=== PATIENT | male | born 1985 | race African-American/Black ===

== ENCOUNTER → 2016-11-02 | Outpatient (CLI) | payer MEDICARE, OTHER ==
[~2016-11-02] MED LIST: ADDE30TA PO; CLIN150 PO; FISH1000 PO; GLUCKIT15; GLUCTES12; INSU1MIS15; LANCETS1 MI1; LEVEMIR SQ; LISI10TA3 PO; METF1000 PO; METF500 PO; METF500T4 PO; MILK140C PO; OMEG1000 PO; SERO50TA PO; [UNRECOGNIZED DRUG - CODE] PO
[2016-11-02 10:22] LABS: ALKALINE PHOSPHATASE 187 U/L (45-117); ALT (GPT) 37 U/L (12-78); ANION GAP 10 MEQ/L (5-15); AST (GOT) 22 U/L (15-37); BICARBONATE 28.1 MEQ/L (21.0-32.0); BLOOD UREA NITROGEN 10 MG/DL (7-18); CHLORIDE 98 MEQ/L (98-107); GLOMERULAR FILTRATION RATE 81 ML/MIN (>89); GLUCOSE,FASTING 340 MG/DL (74-99); HDL CHOLESTEROL 57.4 MG/DL (40.0-60.0); LDL CHOLESTEROL 38 MG/DL (0-99); POTASSIUM 3.4 MEQ/L (3.5-5.1); SODIUM (NA) 136 MEQ/L (136-145); TOTAL BILIRUBIN ADULT 1.3 MG/DL (0.2-1.0)
[2016-11-02 10:28] LABS: MICRO ALBUMIN RANDOM URINE RAW 38.6 MG/L (0.0-30.0)
[2016-11-02 16:04] LABS: HEMOGLOBIN A1a 1.1 %; HEMOGLOBIN A1b 2.7 %; HEMOGLOBIN Ao 76.3 %; HEMOGLOBIN LA1C 3.8 %; HEMOGLOBIN P3 6.6 %
== END ==
LOC: CLAB 09:27
PROVIDERS: ATTEND Family Medicine
DX: E11.9 Type 2 diabetes mellitus without complications (principal)
CPT/HCPCS: 36415; 80053; 80061; 82043; 83036

== ENCOUNTER 2016-11-08 14:19 | Inpatient (IN) | payer MEDICARE, OTHER ==
[~2016-11-08] VITALS: Ht 188 cm; Wt 112.2 kg
[2016-11-08] VITALS (7 sets, daily range): BP systolic 124–135; BP diastolic 68–93; PULSE 81–129; RESP 15–20; TEMP 96.9–99; O2SAT 97–100
[~2016-11-08 14:19] MED LIST changes: -CLIN150 PO; -GLUCKIT15; -GLUCTES12; -INSU1MIS15; -LANCETS1 MI1; -LEVEMIR SQ; -METF1000 PO; -METF500 PO; -OMEG1000 PO
[2016-11-08] MEDS ORDERED: MILK140C PO (14:37)
[2016-11-08] MEDS ORDERED: OMEG1000 PO (14:37)
[2016-11-08 15:07] LABS: AUTOMATED NEUTROPHIL # 10.2 TH/MM3 (1.8-7.7); BASOPHIL # 0.2 TH/MM3 (0-0.2); BASOPHIL % 1.3 % (0.0-2.0); EOSINOPHIL % 0.3 % (0.0-4.0); HEMATOCRIT 48.8 % (39.0-51.0); HEMO FLAGS DIFF FINAL; LYMPH % 18.7 % (9.0-44.0); LYMPHOCYTE # 2.6 TH/MM3 (1.0-4.8); MEAN CORPUSCULAR HEMOGLOBIN 27.2 PG (27.0-34.0); MEAN CORPUSCULAR HGB CONC 33.6 % (32.0-36.0); MONO % 6.7 % (0.0-8.0); PLATELET COUNT 232 TH/MM3 (150-450); RED BLOOD COUNT 6.03 MIL/MM3 (4.50-5.90); RED CELL DISTRIBUTION WIDTH 12.5 % (11.6-17.2); WHITE BLOOD COUNT 13.9 TH/MM3 (4.0-11.0)
--- NOTE | 2016-11-08 15:12 | PD ---
HPI Chief Complaint: Bleeding Time Seen by Provider: 15:10 Travel History International Travel<30 days: No Contact w/Intl Traveler<30days: No Traveled to known affect area: No History of Present Illness HPI 31-year-old male that presents to the ED for evaluation of bleeding. 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 Per caregiver and patient symptoms started yesterday. Patient was bleeding on the, as well as another wound on his left lower leg. Patient did not mention any of this to the caregivers until today when they noticed that he had blood on his gum and then he mentioned that he had bleeding from the left leg. Patient has a history of diabetes and history of hep C as well as schizophrenia mental disability. Patient is chronically on disability. Patient lives at a facility with 2 other residents. Patient voices no other complaints. Patient does state that home on the left leg is slightly tender to touch and the pain is 5 out of 10. He denies any prior injury. Unclear as to how long lump has been there since caregiver only noticed it today but he does appear to have been there for longer. Patient denies any chest pain or shortness of breath. He does complain to caregiver as well as me of some weakness otherwise feels well. He states been compliant with the medications given to him by his veneer cutter as well as his primary care doctor. She states that he continues to take his other medications. He states that he has no pain other than on the lump. He denies any blood in the stool or urinary bleeding. Per caregiver he has been pain more than usual. Patient follows with the resident's of the family practice here in [place]. [facility] Past Medical History ADD: Yes ADHD: Yes Arthritis: No Asthma: No Autoimmune Disease: No Blood Disorders: Yes (HEMOFILIAC FACTER V) Anxiety: No Depression: Yes Heart Rhythm Problems: No Cancer: No Cardiovascular Problems: No High Cholesterol: Yes Chemotherapy: No Chest Pain: No Congestive Heart Failure: No COPD: No Cerebrovascular Accident: No Diabetes: Yes Patient Takes Glucophage: Yes Diminished Hearing: Yes Endocrine: No Gastrointestinal Disorders: Yes GERD: No Glaucoma: No Genitourinary: No Headaches: No Hepatitis: Yes (HEP C) Hiatal Hernia: No Hypertension: No Immune Disorder: No Kidney Stones: No Medical other: Yes Musculoskeletal: No Neurologic: No Psychiatric: No Reproductive: No Respiratory: No Immunizations Current: No Migraines: No Myocardial Infarction: No Radiation Therapy: No Renal Failure: No Seizures: No Sickle Cell Disease: No Sleep Apnea: No Thyroid Disease: No Ulcer: No Tetanus Vaccination: < 5 Years Influenza Vaccination: Yes PNEUMOCCOCAL Vaccine (Year): 3 Past Surgical History Abdominal Surgery: No AICD: No Appendectomy: No Arteriovenous Shunt: No Cardiac Surgery: No Cholecystectomy: No Ear Surgery: Yes (BILAT) Endocrine Surgery: No Eye Surgery: No Genitourinary Surgery: No Gynecologic Surgery: No Insulin Pump: No Joint Replacement: No Oral Surgery: No Pacemaker: No Thoracic Surgery: No Other Surgery: Yes (KELLOID REMOVAL BOTH EAR 10 YEARS AGO) Social History Alcohol Use: Yes (occassionally ) Tobacco Use: Yes (< 1/2 PPD ) Substance Use: No Allergies-Medications (Allergen,Severity, Reaction): Coded Allergies: No Known Allergies (Verified , 11/08/16) Reported Meds & Prescriptions Reported Meds & Active Scripts Active Adderall (Amphetamine-Dextroamphetamine) 30 Mg Tab 30 Mg PO DAILY Avoid late evening doses. Space doses at least 4 to 6 hours if more than once/day dosing. Metformin ER (Metformin HCl) 500 Mg Arben 500 Mg PO BID With evening meal Lisinopril 10 Mg Tab 10 Mg PO DAILY Seroquel (Quetiapine Fumarate) 50 Mg Tab 50 Mg PO DAILY Reported Milk Thistle 140 Mg Cap 140 Mg PO BID Austin-3 1000 mg (Austin-3 Fatty Acids) 1 Cap Cap 1,000 Caplet PO DAILY Review of Systems Except as stated in HPI: all other systems reviewed are Neg Physical Exam Narrative GENERAL: SKIN: Warm and dry. HEAD: Atraumatic. Normocephalic. EYES: Pupils equal and round. No scleral icterus. No injection or drainage. ENT: No nasal bleeding or discharge. Mucous membranes pink and moist. Tongue is midline. No uvula deviation. Patient does have some bleeding on the gums noted. No mass or deformity noted otherwise. NECK: Trachea midline. No JVD. CARDIOVASCULAR: Regular rate and rhythm. No murmurs, S3, S4. RESPIRATORY: No accessory muscle use. Clear to auscultation. Breath sounds equal bilaterally. GASTROINTESTINAL: Abdomen soft, non-tender, nondistended. Hepatic and splenic margins not palpable. MUSCULOSKELETAL: Extremities without clubbing, cyanosis, or edema. No obvious deformities. Full range of motion of the upper and lower extremities bilaterally. Patient does have a area of induration's on the left upper leg about 4 cm in diameter. No obvious pus but some blood is expressed from the wound. Appears to have a necrotic center and is tender to touch. No sign of lymphadenopathy. No pulsatile mass noted. Patient does have 2+ pulses in the lower and upper extremities bilaterally. NEUROLOGICAL: Awake and alert. No obvious cranial nerve deficits. Motor grossly within normal limits. Five out of 5 muscle strength in the arms and legs. Normal speech. PSYCHIATRIC: Appropriate mood and affect; insight and judgment normal. Data Data Last Documented VS Vital Signs Date Time Temp Pulse Resp B/P Pulse Ox O2 Delivery O2 Flow Rate FiO2 11/08/16 14:55 18 98 Room Air 11/08/16 14:32 11/08/16 14:22 99.0 129 Orders Electrocardiogram (11/08/16 14:40) Complete Blood Count With Diff (11/08/16 14:40) Comprehensive Metabolic Panel (11/08/16 14:40) Prothrombin Time / Inr (Pt) (11/08/16 14:40) Act Partial Throm Time (Ptt) (11/08/16 14:40) Urinalysis - C+S If Indicated (11/08/16 14:40) Magnesium (Mg) (11/08/16 14:40) Iv Access Insert/Monitor (11/08/16 14:40) Ecg Monitoring (11/08/16 14:40) Oximetry (11/08/16 14:40) Type And Screen (11/08/16 14:40) Fresh Frozen Plasma (Ffp) (11/08/16 14:43) Us Leg Soft Tissue (11/08/16 ) Consult Hematology (11/08/16 ) Fresh Frozen Plasma (Ffp) (11/08/16 14:54) (Hub Use Only)Inp Phy Cons/Ref (11/08/16 ) Sodium Chlor 0.9% 1000 Ml Inj (Ns 1000 M (11/08/16 15:34) Insulin Human Regular Inj (Novolin R Inj (11/08/16 15:45) Admit Order (Ed Use Only) (11/08/16 16:00) Labs Laboratory Tests Test 11/08/16 14:45 White Blood Count 13.9 TH/MM3 Red Blood Count 6.03 MIL/MM3 Hemoglobin 16.4 GM/DL Hematocrit 48.8 % Mean Corpuscular Volume 81.0 FL Mean Corpuscular Hemoglobin 27.2 PG Mean Corpuscular Hemoglobin 33.6 % Concent Red Cell Distribution Width 12.5 % Platelet Count 232 TH/MM3 Mean Platelet Volume 10.5 FL Neutrophils (%) (Auto) 73.0 % Lymphocytes (%) (Auto) 18.7 % Monocytes (%) (Auto) 6.7 % Eosinophils (%) (Auto) 0.3 % Basophils (%) (Auto) 1.3 % Neutrophils # (Auto) 10.2 TH/MM3 Lymphocytes # (Auto) 2.6 TH/MM3 Monocytes # (Auto) 0.9 TH/MM3 Eosinophils # (Auto) 0.0 TH/MM3 Basophils # (Auto) 0.2 TH/MM3 CBC Comment DIFF FINAL Differential Comment Sodium Level 126 MEQ/L Potassium Level 4.1 MEQ/L Chloride Level 86 MEQ/L Carbon Dioxide Level 29.0 MEQ/L Anion Gap 11 MEQ/L Blood Urea Nitrogen 21 MG/DL Creatinine 1.73 MG/DL Estimat Glomerular Filtration 56 ML/MIN Rate Random Glucose 646 MG/DL Calcium Level 9.7 MG/DL Magnesium Level 2.8 MG/DL Total Bilirubin 0.9 MG/DL Aspartate Amino Transf 63 U/L (AST/SGOT) Alanine Aminotransferase 73 U/L (ALT/SGPT) Alkaline Phosphatase 199 U/L Total Protein 8.7 GM/DL Albumin 4.0 GM/DL Blood Type A POSITIVE [facility] Medical Decision Making Medical Screen Exam Complete: Yes Emergency Medical Condition: Yes Medical Record Reviewed: Yes Interpretation(s) CBC Diagram 11/08/16 14:45 BMP Diagram 11/08/16 14:45 Differential Diagnosis Bleeding versus follow-up at the versus factor V versus diabetes versus abscess Narrative Course 31-year-old male that presents to the ED for evaluation of bleeding. Patient was properly examined and was found to have signs and symptoms consistent with factor V deficiency with active bleeding. My attending spoke with the veneer cutter Dr. Pope who agrees with 4 units of FFP and 4 hours later another 4 units. Patient agrees with plan. Patient will be admitted to the hospital for this. Labs and type and screen were ordered. Labs showed no marked H&H but did show dehydration and hyperglycemia. Patient was started on IV fluids as well as insulin. Case discussed with the resident Dr. Granados who agrees to admission to the residents. Diagnosis Primary Impression: Factor V deficiency Additional Impression: Bleeding Admitting Information Admitting Physician Requests: Admit Derek Wells Nov 08, 2016 15:12
--- NOTE | 2016-11-08 15:23 | PD ---
Data Data Last Documented VS Vital Signs Date Time Temp Pulse Resp B/P Pulse Ox O2 Delivery O2 Flow Rate FiO2 11/08/16 14:55 18 98 Room Air 11/08/16 14:32 11/08/16 14:22 99.0 129 Orders Electrocardiogram (11/08/16 14:40) Complete Blood Count With Diff (11/08/16 14:40) Comprehensive Metabolic Panel (11/08/16 14:40) Prothrombin Time / Inr (Pt) (11/08/16 14:40) Act Partial Throm Time (Ptt) (11/08/16 14:40) Urinalysis - C+S If Indicated (11/08/16 14:40) Magnesium (Mg) (11/08/16 14:40) Iv Access Insert/Monitor (11/08/16 14:40) Ecg Monitoring (11/08/16 14:40) Oximetry (11/08/16 14:40) Type And Screen (11/08/16 14:40) Fresh Frozen Plasma (Ffp) (11/08/16 14:43) Us Leg Soft Tissue (11/08/16 ) Consult Hematology (11/08/16 ) Fresh Frozen Plasma (Ffp) (11/08/16 14:54) (Hub Use Only)Inp Phy Cons/Ref (11/08/16 ) Labs Laboratory Tests Test 11/08/16 14:45 White Blood Count 13.9 TH/MM3 Red Blood Count 6.03 MIL/MM3 Hemoglobin 16.4 GM/DL Hematocrit 48.8 % Mean Corpuscular Volume 81.0 FL Mean Corpuscular Hemoglobin 27.2 PG Mean Corpuscular Hemoglobin 33.6 % Concent Red Cell Distribution Width 12.5 % Platelet Count 232 TH/MM3 Mean Platelet Volume 10.5 FL Neutrophils (%) (Auto) 73.0 % Lymphocytes (%) (Auto) 18.7 % Monocytes (%) (Auto) 6.7 % Eosinophils (%) (Auto) 0.3 % Basophils (%) (Auto) 1.3 % Neutrophils # (Auto) 10.2 TH/MM3 Lymphocytes # (Auto) 2.6 TH/MM3 Monocytes # (Auto) 0.9 TH/MM3 Eosinophils # (Auto) 0.0 TH/MM3 Basophils # (Auto) 0.2 TH/MM3 CBC Comment DIFF FINAL Differential Comment MDM Supervised Visit with [facility]: Yes Narrative Course I, Dr. Downey, have reviewed the advance practice practioner's documentation and am in agreement, met with the patient face to face, made the diagnosis, and the medical decision making was done by me. *My assessment and Findings: Patient is a 31-year-old male with history of factor V Leiden who presents the emergency department with bleeding. Patient has schizophrenia and is a poor historian. States that he has only had 1 day of swelling in the left groin, states that he has an abscess that spontaneously drained and started bleeding today and he is also had spontaneous bleeding from the gumline. Patient incidentally tachycardic in triage. He does have some spontaneous bleeding from the gingival mucosa but no active bleeding. He does have a steady venous ooze from the left groin at an area of what looks like abscess and necrosis that I doubt has only been there for one day. Exam is consistent with an abscess and my suspicion for AV fistula or pseudoaneurysm is low though will obtain ultrasound to evaluate. I spoke with Dr. Pope of hematology oncology who recommended transfusion with 8 units of FFP for patient' s bleeding. Patient will be admitted for further management. Dago his hemoglobin is stable. Critical Care Narrative Aggregate critical care time was 40 minutes. Time to perform other separately billable procedures was not included in the critical care time. My time did not include minutes spent treating any other patients simultaneously or on activities that did not directly contribute to the patient's treatment. The services I provided to this patient were to treat and/or prevent clinically significant deterioration that could result in: Cardio pulmonary decompensation , hemorrhage, , disability I provided critical care services requiring my management, as noted below: Chart data review, documentation time, medication orders and management, vital sign assessments/reviewing monitor data, ordering and reviewing lab tests, ordering and interpreting/reviewing x-rays and diagnostic studies, care of the patient and discussion of the patient with the admitting physicians. Carmen Downey MD Nov 08, 2016 15:23
[2016-11-08 15:24] LABS: ALT (GPT) 73 U/L (12-78); ANION GAP 11 MEQ/L (5-15); AST (GOT) 63 U/L (15-37); BLOOD UREA NITROGEN 21 MG/DL (7-18); CHLORIDE 86 MEQ/L (98-107); GLOMERULAR FILTRATION RATE 56 ML/MIN (>89); MAGNESIUM 2.8 MG/DL (1.5-2.5); POTASSIUM 4.1 MEQ/L (3.5-5.1); SODIUM (NA) 126 MEQ/L (136-145)
[2016-11-08 15:30] LABS: ALKALINE PHOSPHATASE 199 U/L (45-117); TOTAL BILIRUBIN ADULT 0.9 MG/DL (0.2-1.0)
[2016-11-08] MEDS ORDERED: SODIUM CHLOR 0.9% 1000 ML INJ 1,000 ML IV SCH (15:34)
[2016-11-08] MEDS ORDERED: INSULIN HUMAN REGULAR 1,000 UNITS/10 ML VIAL SQ ONE (15:45)
--- NOTE | 2016-11-08 16:17 | HHI.HP ---
HPI Service Family Medicine Primary Care Physician No Primary Care Physician Admission Diagnosis Factor V Leiden, mucosal bleeding Diagnoses: International Travel<30 Days: No Contact w/Intl Traveler<30days: No Known Affected Area: No History of Present Illness Mr. Elias is a 31 y/o M with a PMHx of hepatitis C, ADHD, developmental delay , DM, and Factor V deficiency presenting with acute bleeding. His caregiver was not at the bedside, therefore most of his history is per the ER staff as the patient is a poor historian. His symptoms started yesterday per his caregiver and last week per Mr. Elias, when he started bleeding without trauma from the gums and from an abscess on his inner L thigh. He did not mention any bleeding to the caregivers until today when they noticed he had blood on his gums. He reports that approximately a cup of blood was lost over the past week. He states that his LLE started bleeding last night and has had "a lot of bleeding to cover his entire pants." He reports that the abscess of his L inner thigh started to "raise up" overnight, however after examination this is likely not true due to the extent of the abscess. He denies any trauma or recent injury. He denies any pain in his LLE to me, however he does complain to his caregiver that he has some mild weakness and tenderness. He reports that he has been compliant with his medications. Otherwise he has no complaints denies any fevers, chills, SOB, chest pain, NVD, or calf tenderness. He also denies any bloody vomiting, diarrhea, or hematuria. For his DM, he does not check his BG and states that he "just takes his pill." He is a patient of Dr. Mike Simon at the [facility]. His assistant professor of surgery is Dr. Pope Review of Systems Constitutional: COMPLAINS OF: Dizziness, DENIES: Fever Endocrine: COMPLAINS OF: Polyuria Eyes: DENIES: Double Vision Ears, nose, mouth, throat: DENIES: Throat pain, Running Nose Respiratory: DENIES: Cough, Shortness of breath Cardiovascular: DENIES: Chest pain Gastrointestinal: DENIES: Abdominal pain, Diarrhea, Nausea, Vomiting Genitourinary: DENIES: Dysuria Musculoskeletal: DENIES: Muscle aches Integumentary: DENIES: Rash Hematologic/lymphatic: DENIES: Lymphadenopathy Neurologic: DENIES: Headache Psychiatric: DENIES: Mood changes Past Family Social History Past Medical History Factor V deficiency (on Amicar) Learning disability Chronic active hepatitis C Hypertension Diabetes Past Surgical History Right knee arthropathy in 2011 Ear surgery at age 5 Allergies: Coded Allergies: No Known Allergies (Verified , 11/08/16) Family History Father: 40s; hemophiliac Mother: alive; lives in [place]. Mental retardation Siblings: sister; lives in snf. Mental retardation; schizophrenia Children: 10 year old boy. Adopted. Social History Marital Status: single Living Situation: lives independently. But has caregivers check in Work history: none Tobacco: 0.5-1 PPD for 10 years Alcohol: every now and then, last drink was a 6 pack last week Illicit drug use: never Other Physicians/Providers Involved in the Care of Patient: Dr. Pope (assistant professor of surgery) Dr. Lorenzo- psychiatry; prescribes [facility] [employer]- [facility] Physical Exam Vital Signs Vital Signs Date Time Temp Pulse Resp B/P Pulse Ox O2 Delivery O2 Flow Rate FiO2 11/08/16 14:55 18 98 Room Air 11/08/16 14:32 11/08/16 14:22 99.0 129 15 126/93 97 Physical Exam GENERAL: Well-nourished, well-developed 31-year-old Frannie male lying in bed with bloodstained clothes in no acute distress. SKIN: Warm and dry. No rash. HEENT: Atraumatic, normocephalic with EOMI. PERRLA. Oropharynx with petechial hemorrhaging on the roof of the mouth, the gums, and under the tongue. Poor dentition with dried blood covering the teeth. Posterior oropharynx without erythema or exudate. Uvula midline with MMM. No palpable LAD. No rhinorrhea or epistaxis. CARDIOVASCULAR: Regular rate and rhythm without obvious murmurs, gallops, or rubs. RESPIRATORY: Clear to auscultation bilaterally with no CRW. No increased work of breathing. GASTROINTESTINAL: Abdomen soft, non-tender, nondistended with positive bowel sounds. No masses appreciated. MUSCULOSKELETAL: No cyanosis or edema. Strength grossly WNL. LLE: Left inner thigh with approximately 3-5 cm in diameter circular abscess with necrotic center oozing blood with possible hematoma. Difficult to evaluate abscess and surrounding cellulitis due to amount of dried blood and acute bleeding at the site. Patient not currently tender to touch or with a pulsatile mass. Sensation and pulses intact throughout the extremity. NEURO/PSYCH: Afocal. Awake, alert, and oriented x3. Patient is a poor historian likely due to his developmental delay and schizophrenia. Laboratory Laboratory Tests Test 11/08/16 14:45 White Blood Count 13.9 Red Blood Count 6.03 Hemoglobin 16.4 Hematocrit 48.8 Mean Corpuscular Volume 81.0 Mean Corpuscular Hemoglobin 27.2 Mean Corpuscular Hemoglobin 33.6 Concent Red Cell Distribution Width 12.5 Platelet Count 232 Mean Platelet Volume 10.5 Neutrophils (%) (Auto) 73.0 Lymphocytes (%) (Auto) 18.7 Monocytes (%) (Auto) 6.7 Eosinophils (%) (Auto) 0.3 Basophils (%) (Auto) 1.3 Neutrophils # (Auto) 10.2 Lymphocytes # (Auto) 2.6 Monocytes # (Auto) 0.9 Eosinophils # (Auto) 0.0 Basophils # (Auto) 0.2 CBC Comment DIFF FINAL Differential Comment Sodium Level 126 Potassium Level 4.1 Chloride Level 86 Carbon Dioxide Level 29.0 Anion Gap 11 Blood Urea Nitrogen 21 Creatinine 1.73 Estimat Glomerular Filtration 56 Rate Random Glucose 646 Calcium Level 9.7 Magnesium Level 2.8 Total Bilirubin 0.9 Aspartate Amino Transf 63 (AST/SGOT) Alanine Aminotransferase 73 (ALT/SGPT) Alkaline Phosphatase 199 Total Protein 8.7 Albumin 4.0 Blood Type A POSITIVE Result Diagram: 11/08/16 1445 11/08/16 1445 Assessment and Plan Assessment and Plan Mr. Elias is a 31 y/o M with a PMHx of hepatitis C, ADHD, DM, and Factor V deficiency presenting with acute bleeding. He will be admitted for this active bleeding and transfused 8 units of FFP per his assistant professor of surgery, Dr. Pope. Code Status Full Discussed Condition With CHANDLER Andrade Dr. Problem List: (1) Bleeding Status: Acute Plan: Patient presenting to the emergency department with acute bleeding from his oral cavity and left lower extremity. Patient with factor V deficiency seen by Dr. Pope who requested the patient be admitted and transfused 4 units of fresh frozen plasma with another 4 units of fresh frozen plasma to be administered 4 hours later. CBC: WBC 13.9, H/H 16/48, platelets 232, neutrophils 73% Coagulation: Pending Consult hematology, appreciate recommendations Continue Amicar 1000 mg every [address] Pope, hematology, transfuse 4 units of fresh frozen plasma with another 4 units to be administered 4 hours later; orders placed per ER staff (2) Factor V deficiency Status: Acute Plan: Please see plan as above (3) Abscess of left thigh Status: Acute Plan: Patient presenting with abscess of the left thigh with necrotic tissue. Patient currently hemorrhaging at the site likely due to factor V deficiency. Patient unable to give appropriate history concerning for abscess. Due to the amount of blood, examination was difficult. Medical team will plan to cover with broad antibiotics as the patient does meet sepsis criteria (tachycardia with elevated WBC). CBC: WBC 13.9, H/H 16/48, platelets 232, neutrophils 73% Blood cultures 2 11/08: Pending Lactic acid: Pending Ultrasound of the left lower extremity: Pending Medications: Vancomycin 1 g twice a day, pharmacy consulted Zosyn 3.375 g every 6 hours Tylenol 500 mg every 4 hours when necessary for pain or fever greater than 101 degrees See fluids as below (4) Diabetes mellitus Status: Chronic Plan: Patient with history of diabetes mellitus. Currently only on metformin twice a day. Patient states that he does not check his blood sugars daily, but has been compliant with his medication. On admission patient's blood glucose elevated to 646. Patient placed on half-normal saline with KCl at 1.5 maintenance with plans to reduce to maintenance once blood sugar control is increased in and anion gap closed. BMP: Sodium 126 (corrected 135), BUN 21, creatinine 1.73, glucose 646, mag 2.9 , alkaline phosphatase 199, protein 8.7 UA: 1000 glucose, 10 ketones, rare bacteria VBG: PH 7.43, CO2 43, O2 73, bicarbonate 28 A1c: Pending Repeat BMP at midnight: Pending Medications: Hold home metformin Patient administered 10 units of regular insulin in ER with 1 L normal saline bolus Half-normal saline with 20 units a KCl at 254 mL per hour Low-dose sliding scale insulin per protocol (5) HTN (hypertension) Status: Chronic Plan: Patient with chronic hypertension Continue home lisinopril 10 mg daily (6) Chronic hepatitis C Status: Chronic Plan: Patient with chronic hepatitis C. CMP: AST 63, ALT 73 Continue to monitor (7) Attention deficit hyperactivity disorder, predominantly inattentive type Status: Chronic Plan: Patient with ADHD Continue home Adderall Continue home Seroquel (8) Nutrition, metabolism, and development symptoms Status: Acute Plan: Fluids: Half-normal saline with 20 units KCl at 254 mL/h Diet: Diabetic diet as tolerated Electrolytes: As above, continue to monitor DVT prophylaxis: SCD/TEDs, pharmacologic prophylaxis not indicated as patient currently bleeding with factor V deficiency Physician Certification 2 Midnight Certification Type: Admission for Inpatient Services Order for Inpatient Services The services are ordered in accordance with Medicare regulations or non- Medicare payer requirements, as applicable. In the case of services not specified as inpatient-only, they are appropriately provided as inpatient services in accordance with the 2-midnight benchmark. Estimated LOS (days): 3 3 days is the estimated time the patient will need to remain in the hospital, assuming treatment plan goals are met and no additional complications. Post-Hospital Plan: Home Jv Granados MD R1 Nov 08, 2016 16:17
[2016-11-08 16:25] LABS: BACTERIA, URINE RARE /hpf; BLOOD, URINE NEG (NEG); COMMENT (UR) CULT NOT INDICATED; CULTURE IF INDICATED CULT NOT INDICATED; GLUCOSE,URINE 1000 mg/dL (NEG); KETONE, URINE 10 mg/dL (NEG); NITRITE,URINE NEG (NEG); SQUAMOUS EPITHELIAL CELL URINE <1 /hpf (0-5); URINE COLOR LIGHT-YELLOW (YELLW/STRAW)
[2016-11-08] MEDS ORDERED: DEXTROSE 50% IN WATER 50 ML VIAL(D50) IV PUSH PRN (17:15)
[2016-11-08] MEDS ORDERED: Vancomycin Consult Pharmacy 1 EA OTHER SCH (17:15)
[2016-11-08] MEDS ORDERED: GLUCAGON 1 MG/ML VIAL OTHER PRN (17:15)
[2016-11-08] MEDS ORDERED: ACETAMINOPHEN 500 MG CPLT PO PRN (17:15)
[2016-11-08] MEDS ORDERED: SODIUM CHLORIDE 0.9% FLUSH 10 ML FLUSH IV FLUSH PRN (17:15)
--- NOTE | 2016-11-08 17:23 | RADRPT ---
EXAM DATE/TIME: 11/08/2016 16:38 [facility] COMPARISON: No previous studies available for comparison. INDICATIONS : Palpable bleeding mass. MEDICAL HISTORY : Hypercholesterolemia. Hepatitis C. Hemophilia, Factor V. Diabetes. SURGICAL HISTORY : Kelloid removal. ENCOUNTER: Initial ACUITY: 2 days PAIN SCORE: 7/10 LOCATION: Left legs. AREA EVALUATED: Left groin area. FINDINGS: There is a complex hypoechoic mass containing fluid measuring 4.7 x 2.1 x 3.8 cm with increased vascu larity of the soft tissue in this region. A complex fluid collection is suspected. CONCLUSION: There are findings suspect for possible hematoma in the left groin corresponding to the palpable area with adjacent increased vascularity. John Chapman MD on November 08, 2016 at 17:21 Board Certified Radiologist. This report was verified electronically.
[2016-11-08 17:54] LABS: BLOOD GAS VENOUS HCO3 28 mmol/L (22-26); BLOOD GAS VENOUS O2 CONTENT 21.2 Vol % (9.0-17.0); BLOOD GAS VENOUS O2 HGB SAT 93 % (70-76); BLOOD GAS VENOUS PCO2 43 mmHg (44-48); BLOOD GAS VENOUS PO2 73 mmHg (35-40); BLOOD GAS VENOUS pH 7.43 (7.360-7.400); TEMP CORR TO 98.6
[2016-11-08 17:55] LABS: CRITICAL VALUE NO; DRAW SITE NURSE; FIO2 21 %; STAT YES
[2016-11-08] MEDS ORDERED: VANCOMYCIN INJ 1,000 MG in SODIUM CHLOR 0.9% 250 ML INJ 250 ML IV ONE (20:00)
[2016-11-08] MEDS: INSULIN ASPART SUPPLEMENTAL SCALE SQ SCH (21:00)
[2016-11-08 21:03] LABS: APTT (PATIENT) 35.9 SEC (24.3-30.1); INTERNATIONAL NORMALIZED RATIO 1.7 RATIO; PROTHROMBIN TIME - PATIENT 19.4 SEC (9.8-11.6)
[2016-11-08] MEDS: SODIUM CHLORIDE 0.9% FLUSH 10 ML FLUSH IV FLUSH SCH (21:37)
[2016-11-08] MEDS: PIPERACIL-TAZO 3.375 GM PREMIX 50 ML IV SCH (23:10)
[2016-11-09] VITALS (17 sets, daily range): BP systolic 113–151; BP diastolic 68–84; PULSE 68–100; RESP 15–20; TEMP 96.9–98.4; O2SAT 94–100
[2016-11-09 01:30] LABS: BICARBONATE 29.1 MEQ/L (21.0-32.0); POTASSIUM 3.8 MEQ/L (3.5-5.1)
[2016-11-09] MEDS: PIPERACIL-TAZO 3.375 GM PREMIX 50 ML IV SCH ×4 (04:11→20:42)
[2016-11-09] MEDS: 1/2 NS + KCL 20 MEQ INJ 1,000 ML IV SCH ×6 (04:12→23:42)
[2016-11-09] MEDS ORDERED: VANCOMYCIN INJ 1,350 MG in SODIUM CHLORID 0.9% 500 ML INJ 500 ML IV SCH (06:00)
[2016-11-09] MEDS: INSULIN ASPART SUPPLEMENTAL SCALE SQ SCH ×4 (06:41→20:51)
[2016-11-09 07:57] LABS: AUTOMATED NEUTROPHIL # 6.2 TH/MM3 (1.8-7.7); BASOPHIL # 0.1 TH/MM3 (0-0.2); BASOPHIL % 0.7 % (0.0-2.0); EOSINOPHIL # 0.2 TH/MM3 (0-0.4); EOSINOPHIL % 1.9 % (0.0-4.0); HEMATOCRIT 41.6 % (39.0-51.0); HEMO FLAGS DIFF FINAL; LYMPH % 26.6 % (9.0-44.0); LYMPHOCYTE # 2.6 TH/MM3 (1.0-4.8); MEAN CELL VOLUME 80.4 FL (80.0-100.0); MEAN CORPUSCULAR HEMOGLOBIN 27.3 PG (27.0-34.0); MONO % 8.3 % (0.0-8.0); NEUT % 62.5 % (16.0-70.0); PLATELET COUNT 197 TH/MM3 (150-450); RED BLOOD COUNT 5.18 MIL/MM3 (4.50-5.90); RED CELL DISTRIBUTION WIDTH 12.6 % (11.6-17.2); WHITE BLOOD COUNT 9.9 TH/MM3 (4.0-11.0)
[2016-11-09] MEDS: QUEtiapine FUMARATE 25 MG TAB PO SCH (08:01)
[2016-11-09] MEDS: LISINOPRIL 10 MG TAB PO SCH (08:02)
[2016-11-09] MEDS: SODIUM CHLORIDE 0.9% FLUSH 10 ML FLUSH IV FLUSH SCH ×2 (08:05→20:42)
[2016-11-09 08:31] LABS: ALKALINE PHOSPHATASE 157 U/L (45-117); ALT (GPT) 53 U/L (12-78); ANION GAP 11 MEQ/L (5-15); AST (GOT) 43 U/L (15-37); BICARBONATE 27.8 MEQ/L (21.0-32.0); BLOOD UREA NITROGEN 16 MG/DL (7-18); CHLORIDE 91 MEQ/L (98-107); GLOMERULAR FILTRATION RATE 94 ML/MIN (>89); POTASSIUM 3.5 MEQ/L (3.5-5.1); SODIUM (NA) 130 MEQ/L (136-145); TOTAL BILIRUBIN ADULT 0.5 MG/DL (0.2-1.0)
[2016-11-09] MEDS: DEXTROAMPHETAMINE/AMPHETAMINE 30 MG TAB PO SCH (09:33)
[2016-11-09] MEDS ORDERED: AMINOCAPROIC ACID 500 MG TAB PO SCH (09:45)
--- NOTE | 2016-11-09 10:41 | HHI.HP ---
HPI Service Family Medicine Primary Care Physician No Primary Care Physician Admission Diagnosis Factor V Leiden, mucosal bleeding Diagnoses: (1) Factor V deficiency Diagnosis: Principal (2) Bleeding Diagnosis: Principal (3) Abscess of left thigh Diagnosis: Principal (4) Diabetes mellitus Diagnosis: Principal (5) HTN (hypertension) Diagnosis: Principal (6) Chronic hepatitis C Diagnosis: Principal (7) Attention deficit hyperactivity disorder, predominantly inattentive type Diagnosis: Principal (8) Nutrition, metabolism, and development symptoms Diagnosis: Principal International Travel<30 Days: No Contact w/Intl Traveler<30days: No Known Affected Area: No History of Present Illness Mr. Elias is a 31 y/o M with a PMHx of hepatitis C, ADHD, developmental delay , DM, and Factor V deficiency presenting with acute bleeding. His caregiver was not at the bedside, therefore most of his history is per the ER staff as the patient is a poor historian. His symptoms started the day before admission per his caregiver and last week per Mr. Elias, when he started bleeding without trauma from the gums and from an abscess on his inner L thigh. He did not mention any bleeding to the caregivers until they noticed he had blood on his gums. He reports that approximately a cup of blood was lost over the past week. He states that his LLE started bleeding night and has had "a lot of bleeding to cover his entire pants." He reports that the abscess of his L inner thigh started to "raise up" overnight. He denies any trauma or recent injury. He denies any pain in his LLE, however he did complain to his caregiver that he has some mild weakness and tenderness. He reports that he has been compliant with his medications. Otherwise he has no complaints denies any fevers, chills, SOB, chest pain, NVD, or calf tenderness. He also denies any bloody vomiting, diarrhea, or hematuria. For his DM, he does not check his BG and states that he "just takes his pill." He is a patient of Dr. Mike Simon at the [facility]. His velocity shooter is Dr. Pope He is not having any bleeding in his gums now. he has some oozing continuing from his left inner thigh. A small amount of purulent material was able to be expressed from that area and it is an extensive hematoma per ultrasound but I did not find fluctuance today. Review of Systems ROS Limitations: Poor Historian Other Constitutional: COMPLAINS OF: Dizziness, DENIES: Fever Endocrine: COMPLAINS OF: Polyuria Eyes: DENIES: Double Vision Ears, nose, mouth, throat: DENIES: Throat pain, Running Nose Respiratory: DENIES: Cough, Shortness of breath Cardiovascular: DENIES: Chest pain Gastrointestinal: DENIES: Abdominal pain, Diarrhea, Nausea, Vomiting Genitourinary: DENIES: Dysuria Musculoskeletal: DENIES: Muscle aches Integumentary: DENIES: Rash Hematologic/lymphatic: DENIES: Lymphadenopathy Neurologic: DENIES: Headache Psychiatric: DENIES: Mood changes Past Family Social History Past Medical History 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 Mental retardation Siblings: sister; lives in correction. Mental retardation; schizophrenia Children: 10 year old boy. Adopted. Social History Marital Status: single Living Situation: lives independently. But has caregivers check in Work history: none Tobacco: 0.5-1 PPD for 10 years Alcohol: every now and then, last drink was a 6 pack last week Illicit drug use: never Other Physicians/Providers Involved in the Care of Patient: Dr. Pope (velocity shooter) Dr. Lorenzo- psychiatry; [facility] Re[facility] Analyst- [facility] Physical Exam Vital Signs Vital Signs Date Time Temp Pulse Resp B/P Pulse Ox O2 Delivery O2 Flow Rate FiO2 11/09/16 09:31 98.0 86 17 134/84 99 11/09/16 09:11 98.0 81 16 126/83 99 11/09/16 08:00 97.5 82 19 138/76 97 11/09/16 06:44 97.4 82 20 136/76 98 11/09/16 04:15 97.9 87 20 142/78 98 11/09/16 03:57 97.0 89 20 142/80 97 11/09/16 02:12 96.9 98 20 138/80 98 11/09/16 01:55 97.1 94 20 122/68 98 11/09/16 00:00 97.2 91 20 126/78 99 11/08/16 22:28 96.9 81 20 135/79 98 11/08/16 20:00 97.9 97 20 135/71 100 11/08/16 18:35 98.1 92 18 124/73 99 Room Air 11/08/16 17:19 98.0 98 18 132/68 99 Room Air 11/08/16 17:04 98.1 99 18 134/81 98 Room Air 11/08/16 14:55 18 98 Room Air 11/08/16 14:32 86 17 98 Room Air 11/08/16 14:32 11/08/16 14:22 99.0 129 15 126/93 97 Physical Exam GENERAL: Well-nourished, well-developed 31-year-old Frannie male lying in bed with his bandage soaked through on his inner left thigh in no acute distress. SKIN: Warm and dry. No rash. HEENT: Atraumatic, normocephalic with EOMI. PERRLA. Oropharynx with petechial hemorrhaging on the roof of the mouth, the gums, and under the tongue initially , no blood today. Poor dentition. Posterior oropharynx without erythema or exudate. Uvula midline with MMM. No palpable LAD. No rhinorrhea or epistaxis. CARDIOVASCULAR: Regular rate and rhythm without obvious murmurs, gallops, or rubs. RESPIRATORY: Clear to auscultation bilaterally with no CRW. No increased work of breathing. GASTROINTESTINAL: Abdomen soft, non-tender, nondistended with positive bowel sounds. No masses appreciated. MUSCULOSKELETAL: No cyanosis or edema. Strength grossly WNL. LLE: Left inner thigh with approximately 3-5 cm in diameter circular area with necrotic center oozing blood with possible hematoma. Patient not currently tender to touch or with a pulsatile mass. Sensation and pulses intact throughout the extremity. small amount of purulent discharge was present at one border of the wound but no surrounding erythema and little warmth NEURO/PSYCH: Afocal. Awake, alert, and oriented x3. Patient is a poor historian likely due to his developmental delay and schizophrenia. had to wake him when we entered room today Laboratory Laboratory Tests Test 11/08/16 11/08/16 11/08/16 11/08/16 14:45 14:54 16:00 17:38 White Blood Count 13.9 Red Blood Count 6.03 Hemoglobin 16.4 Hematocrit 48.8 Mean Corpuscular Volume 81.0 Mean Corpuscular Hemoglobin 27.2 Mean Corpuscular Hemoglobin 33.6 Concent Red Cell Distribution Width 12.5 Platelet Count 232 Mean Platelet Volume 10.5 Neutrophils (%) (Auto) 73.0 Lymphocytes (%) (Auto) 18.7 Monocytes (%) (Auto) 6.7 Eosinophils (%) (Auto) 0.3 Basophils (%) (Auto) 1.3 Neutrophils # (Auto) 10.2 Lymphocytes # (Auto) 2.6 Monocytes # (Auto) 0.9 Eosinophils # (Auto) 0.0 Basophils # (Auto) 0.2 CBC Comment DIFF FINAL Differential Comment Sodium Level 126 Potassium Level 4.1 Chloride Level 86 Carbon Dioxide Level 29.0 Anion Gap 11 Blood Urea Nitrogen 21 Creatinine 1.73 Estimat Glomerular Filtration 56 Rate Random Glucose 646 Calcium Level 9.7 Magnesium Level 2.8 Total Bilirubin 0.9 Aspartate Amino Transf 63 (AST/SGOT) Alanine Aminotransferase 73 (ALT/SGPT) Alkaline Phosphatase 199 Total Protein 8.7 Albumin 4.0 Blood Type A POSITIVE Antibody Screen NEGATIVE Blood Bank Comment Urine Color LIGHT-YELLOW Urine Turbidity CLEAR Urine pH 5.0 Urine Specific [place] 1.026 Urine Protein NEG Urine Glucose (UA) 1000 Urine Ketones 10 Urine Occult Blood NEG Urine Nitrite NEG Urine Bilirubin NEG Urine Urobilinogen LESS THAN 2.0 Urine Leukocyte Esterase NEG Urine RBC LESS THAN 1 Urine WBC 2 Urine Squamous Epithelial <1 Cells Urine Bacteria RARE Microscopic Urinalysis Comment CULT NOT INDICATED Blood Gas Puncture Site NURSE Blood Gas Patient Temperature 98.6 Venous Blood pH 7.43 Venous Blood Partial Pressure 43 CO2 Venous Blood Partial Pressure 73 O2 Venous Blood HCO3 28 Venous Blood Oxygen Saturation 93 Venous Blood Oxygen Content 21.2 Venous Blood Base Excess 4.0 Blood Gas Inspired Oxygen 21 Test 11/08/16 11/09/16 11/09/16 20:25 00:41 06:08 Prothrombin Time 19.4 Prothromb Time International 1.7 Ratio Activated Partial 35.9 Thromboplast Time Lactic Acid Level 1.4 Sodium Level 133 130 Potassium Level 3.8 3.5 Chloride Level 95 91 Carbon Dioxide Level 29.1 27.8 Anion Gap 9 11 Blood Urea Nitrogen 18 16 Creatinine 1.20 1.11 Estimat Glomerular Filtration 86 94 Rate Random Glucose 344 423 Calcium Level 8.7 8.8 White Blood Count 9.9 Red Blood Count 5.18 Hemoglobin 14.2 Hematocrit 41.6 Mean Corpuscular Volume 80.4 Mean Corpuscular Hemoglobin 27.3 Mean Corpuscular Hemoglobin 34.0 Concent Red Cell Distribution Width 12.6 Platelet Count 197 Mean Platelet Volume 10.4 Neutrophils (%) (Auto) 62.5 Lymphocytes (%) (Auto) 26.6 Monocytes (%) (Auto) 8.3 Eosinophils (%) (Auto) 1.9 Basophils (%) (Auto) 0.7 Neutrophils # (Auto) 6.2 Lymphocytes # (Auto) 2.6 Monocytes # (Auto) 0.8 Eosinophils # (Auto) 0.2 Basophils # (Auto) 0.1 CBC Comment DIFF FINAL Differential Comment Total Bilirubin 0.5 Aspartate Amino Transf 43 (AST/SGOT) Alanine Aminotransferase 53 (ALT/SGPT) Alkaline Phosphatase 157 Total Protein 7.8 Albumin 3.5 Date/Time Procedure Status Source Growth 11/08/16 17:50 Aerobic Blood Culture Received Blood Peripheral Pending 11/08/16 17:50 Anaerobic Blood Culture Received Blood Peripheral Pending Result Diagram: 11/09/16 0608 11/09/16 0608 Assessment and Plan Assessment and Plan Mr. Elias is a 31 y/o M with a PMHx of hepatitis C, ADHD, DM, and Factor V deficiency presenting with acute bleeding. He will be admitted for this active bleeding and transfused 8 units of FFP per his velocity shooter, Dr. Pope. Problem List: (1) Bleeding Status: Acute Plan: Patient presenting to the emergency department with acute bleeding from his oral cavity and left lower extremity. Patient with factor V deficiency seen by Dr. Pope who requested the patient be admitted and transfused 4 units of fresh frozen plasma with another 4 units of fresh frozen plasma to be administered 4 hours later. CBC: WBC 13.9, H/H 16/48, platelets 232, neutrophils 73% Coagulation: Pending Consulted hematology, appreciate recommendations Continue Amicar 1000 mg every [address] Pope, hematology, transfuse 4 units of fresh frozen plasma with another 4 units to be administered 4 hours later; orders placed per ER staff (2) Factor V deficiency Status: Acute Plan: Please see plan as above (3) Abscess of left thigh Status: Acute Plan: Patient presenting with abscess of the left thigh with necrotic tissue. Patient currently hemorrhaging at the site likely due to factor V deficiency. Patient unable to give appropriate history concerning for abscess. Due to the amount of blood, examination was difficult. Medical team will plan to cover with broad antibiotics as the patient does meet sepsis criteria (tachycardia with elevated WBC). CBC: WBC 13.9, H/H 16/48, platelets 232, neutrophils 73% Blood cultures 2 11/08: Pending Lactic acid: Pending Ultrasound of the left lower extremity: done Medications: Vancomycin 1 g twice a day, pharmacy consulted Zosyn 3.375 g every 6 hours Tylenol 500 mg every 4 hours when necessary for pain or fever greater than 101 degrees See fluids as below will be able to decrease abx as he does not appear septic today (4) Diabetes mellitus Status: Chronic Plan: Patient with history of diabetes mellitus. Currently only on metformin twice a day. Patient states that he does not check his blood sugars daily, but has been compliant with his medication. On admission patient's blood glucose elevated to 646. Patient placed on half-normal saline with KCl at 1.5 maintenance with plans to reduce to maintenance once blood sugar control is increased in and anion gap closed. Not in DKA, nl pH BMP: Sodium 126 (corrected 135), BUN 21, creatinine 1.73, glucose 646, mag 2.9 , alkaline phosphatase 199, protein 8.7 UA: 1000 glucose, 10 ketones, rare bacteria VBG: PH 7.43, CO2 43, O2 73, bicarbonate 28 A1c: Pending Repeat BMP at midnight: Pending Medications: Hold home metformin Patient administered 10 units of regular insulin in ER with 1 L normal saline bolus Half-normal saline with 20 units a KCl at 254 mL per hour Low-dose sliding scale insulin per protocol (5) HTN (hypertension) Status: Chronic Plan: Patient with chronic hypertension Continue home lisinopril 10 mg daily (6) Chronic hepatitis C Status: Chronic Plan: Patient with chronic hepatitis C. CMP: AST 63, ALT 73 Continue to monitor (7) Attention deficit hyperactivity disorder, predominantly inattentive type Status: Chronic Plan: Patient with ADHD Continue home Adderall Continue home Seroquel (8) Nutrition, metabolism, and development symptoms Status: Acute Plan: Fluids: Half-normal saline with 20 units KCl at 254 mL/h, can decrease when taking good po Diet: Diabetic diet as tolerated Electrolytes: As above, continue to monitor DVT prophylaxis: SCD/TEDs, pharmacologic prophylaxis not indicated as patient currently bleeding with factor V deficiency Physician Certification 2 Midnight Certification Type: Admission for Inpatient Services Order for Inpatient Services The services are ordered in accordance with Medicare regulations or non- Medicare payer requirements, as applicable. In the case of services not specified as inpatient-only, they are appropriately provided as inpatient services in accordance with the 2-midnight benchmark. Estimated LOS (days): 3 3 days is the estimated time the patient will need to remain in the hospital, assuming treatment plan goals are met and no additional complications. Post-Hospital Plan: Not yet determined Problem Qualifiers (1) Diabetes mellitus: Qualified Code: E11.8 - Type 2 diabetes mellitus with complication, without long-term current use of insulin (2) HTN (hypertension): Qualified Code: I10 - Essential hypertension (3) Chronic hepatitis C: Qualified Code: B18.2 - Chronic hepatitis C without hepatic coma Nadine Boone MD Nov 09, 2016 10:41
--- NOTE | 2016-11-09 11:24 | EKG ---
Date Performed: 11/08/2016 Time Performed: 14:55:33 PTAGE: 31 years EKG: SINUS TACHYCARDIA POSSIBLE LEFT ATRIAL ENLARGEMENT ABNORMAL RHYTHM ECG PREVIOUS TRACING : 06/05/2007 11.08 DOCTOR: Jey Gonzales Interpretating Date/Time 11/09/2016 11:23:24
[2016-11-09] MEDS: AMINOCAPROIC ACID 500 MG TAB PO SCH ×3 (12:11→22:27)
[2016-11-09] MEDS ORDERED: INSULIN ASPART 1,000 UNITS/10 ML VIAL SQ ONE (12:15)
[2016-11-09 16:14] LABS: HEMOGLOBIN A1a 1.1 %; HEMOGLOBIN A1b 1.3 %; HEMOGLOBIN Ao 72.3 %; HEMOGLOBIN LA1C 4.3 %
[2016-11-09] MEDS: VANCOMYCIN INJ 1,500 MG in SODIUM CHLORID 0.9% 500 ML INJ 500 ML IV SCH (17:09)
[2016-11-09] MEDS ORDERED: SODIUM CHLOR 0.9% 250 ML INJ 250 ML IV ONE (19:30)
[2016-11-09] MEDS ORDERED: ACETAMINOPHEN 325 MG TAB PO PRN (19:30)
[2016-11-09] MEDS ORDERED: diphenhydrAMINE HCL 25 MG CAP PO PRN (19:30)
--- NOTE | 2016-11-09 20:10 | RADRPT ---
EXAM DATE/TIME: 11/09/2016 19:45 [facility] COMPARISON: Report only MRI THIGH LEFT W/O CONTRAST, December 03, 2009, 12:29. INDICATIONS : Evaluate for hematoma versus abscess left upper thigh. RADIATION DOSE: 19.71 CTDIvol (mGy) MEDICAL HISTORY : Diabetes mellitus type 2. Hepatitis C. Hemophilia SURGICAL HISTORY : None. ENCOUNTER: Initial ACUITY: 2 days PAIN SCALE: 0/10 LOCATION: Left Femur TECHNIQUE: Volumetric scanning of the femur was performed. Using automated exposure control and adjustment of t he mA and/or kV according to patient size, radiation dose was kept as low as reasonably achievable to obtain optimal diagnostic quality images. FINDINGS: There are left inguinal lymph nodes that measure up to 14 mm in greatest short axis dimension. There is slight edema/induration of the surrounding adipose. More posteriorly, broad area of marked skin th ickening, superficial subcutaneous edema and scattered ulceration noted of the upper medial left thig h. No mass, hematoma or abscess demonstrated. Scattered calcification/ossification seen within the iliopsoas muscle and also more distally of vastu s lateralis, nonspecific but small foci of myositis ossificans would be most likely. Mild sclerosis seen posteromedially in the metadiaphyseal region of the distal femur, probably the se quela of an old scar or cortical defect. Posteriorly the midshaft of the left femur has a benign appe aring excrescence. Prominent subcutaneous venous varicosities are seen of the mid and distal thigh, especially posterior ly and laterally.. CONCLUSION: 1. Broad area of cellulitis and skin/superficial subcutaneous fat ulceration. No abscess, mass or hem atoma. 2. Upper limits of normal left inguinal lymph nodes, presumably reactive. 3. Scattered small foci of myositis ossificans, most conspicuous of distal iliopsoas and mid vastus l ateralis. 4. Chronic, benign-appearing bony excrescence and posteriorly the midshaft of the left femur, probabl y a tight lesion. Also no apparent old juvenile fibrocortical defect more distally in the femur. 5. Subcutaneous venous varicosities of the mid and distal thigh, mostly posteriorly and laterally. Thomas Hull MD on November 09, 2016 at 20:01 Board Certified Radiologist. This report was verified electronically.
[2016-11-09] MEDS ORDERED: INSULIN DETEMIR 100 UNITS/ML VIAL SQ SCH (21:00)
[2016-11-09 21:58] LABS: POTASSIUM 3.8 MEQ/L (3.5-5.1)
--- NOTE | 2016-11-09 23:04 | MB ---
cc: NAYA MEYER SABRINA DATE OF CONSULTATION: 11/09/2016 DATE OF : [address] Jennyfer Donis. CHIEF COMPLAINT [address]. Donis requested consultation for Mr. Elias regarding Factor V deficiency associated with gum bleeding and left groin hematoma. HISTORY OF PRESENT ILLNESS Mr. Elias is a well-known 31-year-old man with history of Factor V deficiency congenital. He has had various spontaneous bleed such as the left shoulder, muscle bleed, right iliopsoas bleed. He has frequent gum bleeding which is managed by Amicar. He was last seen in the clinic September 07, 2016. He was doing actually quite well. He had no acute event. He presented to the emergency room on 11/08/2016 with gum bleeding. He denies any injury but he was also found to have hematoma in the left inner thigh. It was apparently oozing and oozing and there has been a lot of blood. Details of injury could not be confirmed from the patient. On admission his hemoglobin decreased. He has a microcytic picture. His glucose was significantly elevated. His creatinine is slightly elevated. Magnesium was high. AST elevated. Alkaline phosphatase is high. Mr. Elias reports no headaches, no vision changes. He has some discomfort where the areas is in his inner thigh. He denies any injury and does not recall any. He does not know how it started. Denies any other bleeding. After completion of the 8 units of FFP, his bleeding stopped. I reviewed from his nurses, his wound was oozing earlier on in the day. By the evening time, it had stopped bleeding completely. It is an open wound measuring about 2 to 3 cm round. He apparently had a blister, now it had opened. The rest of his review of systems is negative. PAST MEDICAL HISTORY: 1. Factor V deficiency. 2. Learning disability. 3. Chronic active Hepatitis C. 4. Hypertension. 5. Diabetes. 6. Obesity. PAST SURGICAL HISTORY: Right knee surgery. Ear surgery. ALLERGIES: NO KNOWN DRUG ALLERGIES. SOCIAL HISTORY: Father is with Factor V deficiency. Mother lives in a assisted with mental retardation. He is single, lives in a assisted. He drinks alcohol occasionally. Denies illicit drug use. He smokes half to a pack per day for the past ten years. PHYSICAL EXAMINATION: VITAL SIGNS: Temperature 98.4, heart rate 85, respiratory rate 17. Blood pressure 123/84. Saturation 99%. GENERAL: Mr. Elias is a well-developed obese man in no acute distress. He is quite taciturn. HEENT: His pupils are round, reactive to light and accommodation. Sclerae is nonicteric. Oropharynx is clear, no gum bleeding noted. Tongue is coated. LUNGS: Clear to auscultation. CARDIOVASCULAR: Normal rate and rhythm. ABDOMEN: Large, benign. EXTREMITIES: Lower extremities, no ankle edema. There is induration and swelling in the posterior aspect of the left upper thigh. The inner thigh has a 2 to 3 cm ulcerated wound. It is not bleeding at present. LABORATORY DATA Significant for mild hyponatremia, sodium 130. CBC is normal. Glucose is 423, hemoglobin A1c is 11.7. ASSESSMENT/PLAN Mr. Elias is a 31-year-old man with multiple medical problems. He has obesity and apparently poorly controlled diabetes. His sugar is 646 on admission and 423 at the time of the consultation. His creatinine was elevated, decreased down to the normal range. I had a lengthy discussion with Mr. Elias. He plans to continue FFP infusion. He has Factor V, arterial level is less than 1%. He is prone to spontaneous bleeding. In light of his wound, he will need to continue his FFP for some time until the wound recovers. He is not bleeding at present. I will continue two units per day to see that hemostasis is achieved. We evaluated his response to FFP in the past. Approximately 8 units of FFP can raise his Factor V activity levels by 10%. This is still low, however, it is sufficient to control most of his bleeding. CT of the left femur will be obtained to determine the extent of the hematoma. Would consider wound care or surgery to evaluate the ulcerative wound in his left groin. Currently wet-to-dry dressing is placed. He is advised to keep his diaper dry. He is advised to keep the inner thigh area clean and dry. The dressing was changed to evaluate. It appears to be clean based. His questions were answered to his satisfaction. Pending on the results of the CT scan, I will contemplate discussing his case with the surgeon for promoting wound healing and consideration of his hemostasis in light of his Factor V deficiency. He would be dependent on FFP infusion for weeks. Mr. Elias' questions were answered to his satisfaction. MD TAVO Felix/MADIE /7:25 PM /10:44 PM
[2016-11-10 01:57] VITALS: BP 118/74; PULSE 71; RESP 18; TEMP 97.3; O2SAT 100
[2016-11-10] MEDS: PIPERACIL-TAZO 3.375 GM PREMIX 50 ML IV SCH ×3 (01:59→14:49)
[2016-11-10] MEDS: 1/2 NS + KCL 20 MEQ INJ 1,000 ML IV SCH ×4 (02:02→09:34)
[2016-11-10 02:15] VITALS: BP 121/64; PULSE 74; RESP 18; TEMP 98; O2SAT 100
[2016-11-10 05:15] LABS: AUTOMATED NEUTROPHIL # 3.9 TH/MM3 (1.8-7.7); BASOPHIL % 0.6 % (0.0-2.0); EOSINOPHIL # 0.1 TH/MM3 (0-0.4); EOSINOPHIL % 2.1 % (0.0-4.0); HEMATOCRIT 39.9 % (39.0-51.0); HEMO FLAGS DIFF FINAL; LYMPH % 31.6 % (9.0-44.0); LYMPHOCYTE # 2.1 TH/MM3 (1.0-4.8); MEAN CELL VOLUME 80.3 FL (80.0-100.0); MEAN CORPUSCULAR HGB CONC 34.8 % (32.0-36.0); MONO % 7.9 % (0.0-8.0); NEUT % 57.8 % (16.0-70.0); PLATELET COUNT 214 TH/MM3 (150-450); RED BLOOD COUNT 4.97 MIL/MM3 (4.50-5.90); RED CELL DISTRIBUTION WIDTH 12.9 % (11.6-17.2); WHITE BLOOD COUNT 6.7 TH/MM3 (4.0-11.0)
[2016-11-10] MEDS: VANCOMYCIN INJ 1,500 MG in SODIUM CHLORID 0.9% 500 ML INJ 500 ML IV SCH (05:23)
[2016-11-10] MEDS: AMINOCAPROIC ACID 500 MG TAB PO SCH ×3 (05:23→17:06)
[2016-11-10 05:28] LABS: APTT (PATIENT) 26.2 SEC (24.3-30.1); INTERNATIONAL NORMALIZED RATIO 1.1 RATIO; PROTHROMBIN TIME - PATIENT 12.5 SEC (9.8-11.6)
[2016-11-10 06:01] LABS: POTASSIUM 3.6 MEQ/L (3.5-5.1)
[2016-11-10] MEDS: INSULIN ASPART SUPPLEMENTAL SCALE SQ SCH ×4 (06:10→21:56)
[2016-11-10] MEDS: LISINOPRIL 10 MG TAB PO SCH (07:50)
[2016-11-10] MEDS: DEXTROAMPHETAMINE/AMPHETAMINE 30 MG TAB PO SCH (07:50)
[2016-11-10] MEDS: QUEtiapine FUMARATE 25 MG TAB PO SCH (07:50)
[2016-11-10] MEDS: SODIUM CHLORIDE 0.9% FLUSH 10 ML FLUSH IV FLUSH SCH ×2 (07:51→21:56)
[2016-11-10 08:00] VITALS: BP 136/80; PULSE 77; RESP 17; TEMP 97.6; O2SAT 100
[2016-11-10] MEDS ORDERED: INSULIN DETEMIR 100 UNITS/ML VIAL SQ SCH (09:00)
--- NOTE | 2016-11-10 11:54 | HHI.FPPN ---
Subjective Remarks Patient seen and examined. [place]ADW[place] overnight. No further episodes of bleeding. VSSAF. Patient denies specific complaints this morning. Pain is controlled. No active discharge or bleeding from thigh wound. (Tamara Reid MD R3) Objective Vitals Vital Signs Date Time Temp Pulse Resp B/P Pulse Ox O2 Delivery O2 Flow Rate FiO2 11/10/16 08:00 97.6 77 17 136/80 100 11/10/16 02:15 98.0 74 18 121/64 100 11/10/16 01:57 97.3 71 18 118/74 100 11/09/16 23:15 97.7 68 18 145/80 94 11/09/16 22:50 97.6 75 18 113/69 100 11/09/16 20:13 97.1 90 18 115/73 97 11/09/16 13:55 98.4 85 17 123/84 99 11/09/16 13:35 98.2 100 15 128/79 100 11/09/16 12:00 97.3 88 18 135/78 98 11/09/16 11:55 97.4 94 16 151/84 99 I/O 11/09/16 11/09/16 11/09/16 11/10/16 11/10/16 11/10/16 07:00 15:00 23:00 07:00 15:00 23:00 Intake Total 720 ml 4050 ml 2966 ml 3220 ml Output Total 1400 ml Balance 720 ml 4050 ml 2966 ml 1820 ml Intake Oral 720 ml 480 ml 480 ml 280 ml IV Total 1420 ml 2486 ml 2324 ml FFP 2150 ml 616 ml Output Urine Total 1400 ml # Voids 2 3 2 # Bowel Movements 0 (Tamara Reid MD R3) Result Diagram: 11/10/16 0417 11/10/16 [address] 11/09/16 0000 Signed Impressions: Service Date/Time: Wednesday, November 09, 2016 19:45 - CONCLUSION: 1. Broad area of cellulitis and skin/superficial subcutaneous fat ulceration. No abscess, mass or hematoma. 2. Upper limits of normal left inguinal lymph nodes, presumably reactive. 3. Scattered small foci of myositis ossificans, most conspicuous of distal iliopsoas and mid vastus lateralis. 4. Chronic, benign-appearing bony excrescence and posteriorly the midshaft of the left femur, probably a tight lesion. Also no apparent old juvenile fibrocortical defect more distally in the femur. 5. Subcutaneous venous varicosities of the mid and distal thigh, mostly posteriorly and laterally. Thomas Hull MD Lower Extremity Ultrasound 11/08/16 0000 Signed Impressions: Service Date/Time: Tuesday, November 08, 2016 16:38 - CONCLUSION: There are findings suspect for possible hematoma in the left groin corresponding to the palpable area with adjacent increased vascularity. John Chapman MD Objective Remarks GENERAL: Well-nourished, well-developed 31-year-old Frannie male lying in NAD. SKIN: Warm and dry. No rash. HEENT: Atraumatic, normocephalic with EOMI. PERRLA. OP clear. Poor dentition. Uvula midline with MMM. No palpable LAD. No rhinorrhea or epistaxis. CARDIOVASCULAR: Regular rate and rhythm without obvious murmurs, gallops, or rubs. RESPIRATORY: Clear to auscultation bilaterally with no CRW. No increased work of breathing. GASTROINTESTINAL: Abdomen soft, non-tender, nondistended with positive bowel sounds. No masses appreciated. MUSCULOSKELETAL: No cyanosis or edema. Strength grossly WNL. LLE: Left inner thigh with approximately 3-4 cm circular ulcerative wound with surrounding area induration. No fluctuance. No active drainage. Area is tender to palpation. Sensation and pulses intact throughout the extremity. NEURO/PSYCH: Afocal. Awake, alert, and oriented x3. No focal deficits. Patient does history of developmental delays (Tamara Reid MD R3) A/P Assessment and Plan Mr. Elias is a 31 y/o M with a PMHx of hepatitis C, ADHD, DM, and Factor V deficiency admitted for acute bleeding. Bleeding has resolved s/p FFP per Dr. Pope. In addition, he was found to have a large ulcerative wound on left upper thigh. Awaiting gen surgery's evaluation for possible wound closure. s/d/w Dr. Boone and medicine team Discharge Planning Discharge pending clinical improvement; unsure of timeframe since patient is awaiting surgery evaluation for wound closure. (Tamara Reid MD R3) Attending Attestation Patient seen and examined. Case reviewed and discussed with the resident team. Agree with plan of care as discussed with me and documented in the resident note. (Nadine Boone MD) Problem List: (1) Bleeding Status: Resolved Plan: Patient presenting to the emergency department with acute bleeding from his oral cavity and left lower extremity. Patient with factor V deficiency seen by Dr. Pope who requested the patient be admitted for FFP transfusion. Bleeding has resolved s/p 7 units of FFP. H/H stable. Coag profile WNL. Consulted hematology, appreciate recommendations Continue Amicar 1000 mg every 6 hours (2) Factor V deficiency Status: Chronic Plan: Please see plan as above (3) Cellulitis of left thigh Status: Acute Plan: Patient presenting with bleeding and purulent discharge from ulcerative wound of the left thigh; bleeding has resolved and wound appears stable. Leukocytosis resolved. Lactic acid WNL. Ultrasound of LE: Suspect possible hematoma in the left groin LE CT: Broad area of cellulitis and skin subcutaneous fat ulceration. No abscess, mass, or hematoma. Upper limit of normal left inguinal lymph node. Scattered small foci of myositis ossificans Currently on board spectrum antibiotics with [id number] BID and Zosyn 3.375mg Q6h given history of diabetes. Will de-escalate antibiotics if patient continues to improve. Blood cultures 2 11/08: Pending No active drainage, thus unable to obtain wound culture Tylenol 500 mg every 4 hours when necessary for pain or fever greater than 101 degrees Gen. surgery consulted for possible wound closure. Appreciate assistance (4) CARMINE (acute kidney injury) Status: Acute Plan: Creatinine 1.73 on admission. CARMINE resolved s/p IVFs -Continue to monitor (5) Diabetes mellitus Status: Chronic Plan: Patient with history of diabetes mellitus. Currently only on metformin twice a day. Patient states that he does not check his blood sugars daily, but has been compliant with his medication. On admission patient's blood glucose elevated to 646. No evidence of DKA or HHS Blood glucose still significantly elevated; 300-500s over the past 24 hours. HbA1c: 11.7 Currently on Levemir 10 units BID. Will increase to 15 units BID. Titrate up as needed Accuchecks and low dose SSI (6) HTN (hypertension) Status: Chronic Plan: Patient with chronic hypertension Continue home lisinopril 10 mg daily (7) Chronic hepatitis C Status: Chronic Plan: Patient with chronic hepatitis C, treatment naive CMP: AST 63, ALT 73 Continue to monitor Outpatient follow up with GI (8) Attention deficit hyperactivity disorder, predominantly inattentive type Status: Chronic Plan: Patient with ADHD Continue home Adderall Continue home Seroquel (9) Nutrition, metabolism, and development symptoms Status: Acute Plan: Fluids: HLIV since patient is tolerating po Diet: Diabetic diet as tolerated Electrolytes: Pseudohyponatremia; corrected sodium 137 DVT prophylaxis: SCD/TEDs, pharmacologic prophylaxis not indicated as patient currently bleeding with factor V deficiency (Tamara Reid MD R3) Problem Qualifiers (1) Diabetes mellitus: Qualified Code: E11.8 - Type 2 diabetes mellitus with complication, without long-term current use of insulin (2) HTN (hypertension): Qualified Code: I10 - Essential hypertension (3) Chronic hepatitis C: Qualified Code: B18.2 - Chronic hepatitis C without hepatic coma Tamara Reid MD R3 Nov 10, 2016 11:54 Nadine Boone MD Nov 12, 2016 13:42
[2016-11-10 12:00] VITALS: BP 137/83; PULSE 93; RESP 17; TEMP 96; O2SAT 100
[2016-11-10 16:00] VITALS: BP 141/82; PULSE 78; RESP 18; TEMP 97.7; O2SAT 98
--- NOTE | 2016-11-10 16:06 | PD.CONS ---
cc: Kennedy Rodriguez MD [facility] Service DAILY PROGRESS NOTE FOR SURGICAL ATTENDING, DR. KENNEDY RODRIGUEZ General Surgery Consult Requested By Dr. Pope Reason for Consult patient with factor V deficiency; eval LEFT groin bleeding wound Primary Care Physician No Primary Care Physician History of Present Illness This is a 31-year-old male with a past medical history of hepatitis C, developmental delay, diabetes mellitus, and factor V deficiency. He is presented to the emergency room for bleeding gums and bleeding left groin wound. He was last seen by Dr. Pope in August and doing well. He reports no trauma to his mouth or left groin. He reports that at home he had a lot of bleeding from the left groin wound that saturated in entire repair pain. He noticed the wound about a week ago prior to admission. During this admission he has had several units of FFP. A General Surgery evaluation has been requested to evaluate left bleeding groin wound. Review of Systems Constitutional: DENIES: Weight gain, Weight loss Endocrine: DENIES: Polydipsia, Polyphagia Eyes: DENIES: Eye inflammation, Eye pain Ears, nose, mouth, throat: DENIES: Hearing loss, Vertigo Respiratory: DENIES: Cough, Snoring Cardiovascular: DENIES: Chest pain Gastrointestinal: DENIES: Abdominal pain, Nausea, Vomiting Genitourinary: DENIES: Urgency, Hematuria Musculoskeletal: DENIES: Joint pain Hematologic/lymphatic: DENIES: Bruising Immunologic/allergic: DENIES: Eczema Psychiatric: DENIES: Mood changes, Depression, Hallucinations Other LEFT groin bleeding wound; superficial Past Family Social History Past Medical History Factor V deficiency (on Amicar) Learning disability Chronic active hepatitis C Hypertension Diabetes Past Surgical History Right knee arthropathy in 2010 Ear surgery at age 5 Reported Medications See Chart Allergies: Coded Allergies: No Known Allergies (Verified , 11/08/16) Active Ordered Medications Current Medications Medications (Trade) Dose Ordered Sig/Tri Route Start Time Stop Time Status Last Admin (Adderall) 30 mg DAILY PO 11/09/16 09:00 11/10/16 07:50 (Prinivil) 10 mg DAILY PO 11/09/16 09:00 11/10/16 07:50 (SEROquel) 50 mg DAILY PO 11/09/16 09:00 11/10/16 07:50 (NS Flush) 2 ml BID IV FLUSH 11/08/16 21:00 11/10/16 07:51 (NS Flush) 2 ml UNSCH PRN IV FLUSH 11/08/16 17:15 (Tylenol) 500 mg Q4H PRN PO 11/08/16 17:15 11/09/16 20:43 (D50w (Vial) Inj) 25 ml UNSCH PRN IV PUSH 11/08/16 17:15 (Glucagon Inj) 1 mg UNSCH PRN OTHER 11/08/16 17:15 (Amicar) 1,000 mg Q6HR PO 11/09/16 12:00 11/10/16 11:38 (Levemir Inj) 15 units Q12HR SQ 11/10/16 21:00 (Cleocin) 300 mg Q6HR PO 11/10/16 18:00 Family History Father: 40s; hemophiliac Mother: alive; lives in [facility]. Mental retardation Siblings: sister; lives in [facility]. Mental retardation; schizophrenia Children: 10 year old boy. Adopted. Social History Tobacco: 0.5-1 PPD for 10 years Alcohol: occasionally Illicit drug use: never Lives independently but has caretakers who look in on him Physical Exam Vital Signs Vital Signs Date Time Temp Pulse Resp B/P Pulse Ox O2 Delivery O2 Flow Rate FiO2 11/10/16 12:00 96.0 93 17 137/83 100 11/10/16 08:00 97.6 77 17 136/80 100 11/10/16 02:15 98.0 74 18 121/64 100 11/10/16 01:57 97.3 71 18 118/74 100 11/09/16 23:15 97.7 68 18 145/80 94 11/09/16 22:50 97.6 75 18 113/69 100 11/09/16 20:13 97.1 90 18 115/73 97 Physical Exam GENERAL: A 31-year-old male resting in bed in no acute distress. SKIN: Warm and dry. LEFT groin: Dry wound; superficial; without bleeding; dressing in place is dry. HEAD: Atraumatic. Normocephalic. EYES: Pupils equal and round. No scleral icterus. No injection or drainage. ENT: No nasal bleeding or discharge. Mucous membranes pink and moist. NECK: Trachea midline. CARDIOVASCULAR: Regular rate and rhythm. RESPIRATORY: No accessory muscle use. Clear to auscultation. Breath sounds equal bilaterally. GASTROINTESTINAL: Abdomen soft, non-tender, nondistended. MUSCULOSKELETAL: Extremities without clubbing, cyanosis, or edema. No obvious deformities. NEUROLOGICAL: Awake and alert. No obvious cranial nerve deficits. Motor grossly within normal limits. Five out of 5 muscle strength in the arms and legs. Normal speech. PSYCHIATRIC: Appropriate mood. Laboratory Laboratory Tests Test 11/09/16 11/09/16 11/10/16 19:19 20:21 04:17 Blood Bank Comment Sodium Level 130 132 Potassium Level 3.8 3.6 Chloride Level 93 97 Carbon Dioxide Level 27.0 27.0 Anion Gap 10 8 Blood Urea Nitrogen 14 10 Creatinine 1.34 1.01 Estimat Glomerular Filtration 75 104 Rate Random Glucose 478 319 Calcium Level 8.7 8.8 White Blood Count 6.7 Red Blood Count 4.97 Hemoglobin 13.9 Hematocrit 39.9 Mean Corpuscular Volume 80.3 Mean Corpuscular Hemoglobin 28.0 Mean Corpuscular Hemoglobin 34.8 Concent Red Cell Distribution Width 12.9 Platelet Count 214 Mean Platelet Volume 9.9 Neutrophils (%) (Auto) 57.8 Lymphocytes (%) (Auto) 31.6 Monocytes (%) (Auto) 7.9 Eosinophils (%) (Auto) 2.1 Basophils (%) (Auto) 0.6 Neutrophils # (Auto) 3.9 Lymphocytes # (Auto) 2.1 Monocytes # (Auto) 0.5 Eosinophils # (Auto) 0.1 Basophils # (Auto) 0.0 CBC Comment DIFF FINAL Differential Comment Prothrombin Time 12.5 Prothromb Time International 1.1 Ratio Activated Partial 26.2 Thromboplast Time Date/Time Procedure Status Source Growth 11/08/16 17:50 Aerobic Blood Culture - Preliminary Resulted Blood Peripheral NO GROWTH IN 2 DAYS 11/08/16 17:50 Anaerobic Blood Culture - Preliminary Resulted Blood Peripheral NO GROWTH IN 2 DAYS Result Diagram: 11/10/16 0417 11/10/16 0417 Imaging Last 48 hours Impressions Lower Extremity CT 11/09/16 0000 Signed Impressions: Service Date/Time: Wednesday, November 09, 2016 19:45 - CONCLUSION: 1. Broad area of cellulitis and skin/superficial subcutaneous fat ulceration. No abscess, mass or hematoma. 2. Upper limits of normal left inguinal lymph nodes, presumably reactive. 3. Scattered small foci of myositis ossificans, most conspicuous of distal iliopsoas and mid vastus lateralis. 4. Chronic, benign-appearing bony excrescence and posteriorly the midshaft of the left femur, probably a tight lesion. Also no apparent old juvenile fibrocortical defect more distally in the femur. 5. Subcutaneous venous varicosities of the mid and distal thigh, mostly posteriorly and laterally. Thomas Hull MD Assessment and Plan Problem List: (1) Open wound (2) Factor V deficiency (3) Cellulitis of left thigh (4) Chronic hepatitis C (5) HTN (hypertension) Assessment and Plan 31 year old male with Factor V deficiency with bleeding gums and LEFT groin wound -Will start wet to dry dressings BID -Continue to monitor for bleeding -Continue Amicar -Will discuss with Wound Care in the morning about hemostatic agent options -Non operative treatment at this time Attending Statement NOTE FOR SURGICAL ATTENDING, DR. KENNEDY RODRIGUEZ Patient seen and examined Wound is fairly superficial Will try with dry dressing If it does not progress consider surgical excision however were This wound is located may have problems with healing I agree with above assessment and plan. The exam, history, and the medical decision-making described in the above note were completed with the assistance of the mid-level provider. I reviewed and agree with the findings presented. I attest that I had a [id number] encounter with the patient on the same day, and personally performed and documented my assessment and findings in the medical record. The following services were provided during this hospital visit: Chart data review, vital sign assessments/reviewing monitor data Review of consultations notes if present. Medication orders/review and/or management Ordering and/or reviewing lab tests Ordering and/or interpreting/reviewing x-rays and/or diagnostic studies Care of the patient and discussion of the patient with the care team Documentation time To help prompt me to consider important information that might be impacting today's encounter and assessment, information from prior notes written by myself or my colleagues may have been "brought forward/copy and pasted" into today's note. Problem Qualifiers (1) Chronic hepatitis C: Qualified Code: B18.2 - Chronic hepatitis C without hepatic coma (2) HTN (hypertension): Qualified Code: I10 - Essential hypertension Lissa Fermin Nov 10, 2016 16:06 Kennedy Rodriguez MD Nov 10, 2016 19:49
[2016-11-10] MEDS: CLINDAMYCIN 150 MG CAP PO SCH (17:06)
--- NOTE | 2016-11-10 17:42 | PD.ONC.PN ---
Subjective Subjective Remarks No complaints. Agreed he needs a shower. Denies bleeding. Objective Data Date Time Temp Pulse Resp B/P Pulse Ox O2 Delivery O2 Flow Rate FiO2 11/10/16 16:00 97.7 78 18 141/82 98 11/10/16 12:00 96.0 93 17 137/83 100 11/10/16 08:00 97.6 77 17 136/80 100 11/10/16 02:15 98.0 74 18 121/64 100 11/10/16 01:57 97.3 71 18 118/74 100 11/09/16 23:15 97.7 68 18 145/80 94 11/09/16 22:50 97.6 75 18 113/69 100 11/09/16 20:13 97.1 90 18 115/73 97 11/10/16 11/10/16 11/10/16 07:00 15:00 23:00 Intake Total 3220 ml 120 ml Output Total 1400 ml Balance 1820 ml 120 ml Result Diagram: 11/10/16 0417 11/10/16 0417 Laboratory Results Laboratory Tests Test 11/09/16 11/09/16 11/10/16 19:19 20:21 04:17 Blood Bank Comment Sodium Level 130 MEQ/L 132 MEQ/L Potassium Level 3.8 MEQ/L 3.6 MEQ/L Chloride Level 93 MEQ/L 97 MEQ/L Carbon Dioxide Level 27.0 MEQ/L 27.0 MEQ/L Anion Gap 10 MEQ/L 8 MEQ/L Blood Urea Nitrogen 14 MG/DL 10 MG/DL Creatinine 1.34 MG/DL 1.01 MG/DL Estimat Glomerular Filtration 75 ML/MIN 104 ML/MIN Rate Random Glucose 478 MG/DL 319 MG/DL Calcium Level 8.7 MG/DL 8.8 MG/DL White Blood Count 6.7 TH/MM3 Red Blood Count 4.97 MIL/MM3 Hemoglobin 13.9 GM/DL Hematocrit 39.9 % Mean Corpuscular Volume 80.3 FL Mean Corpuscular Hemoglobin 28.0 PG Mean Corpuscular Hemoglobin 34.8 % Concent Red Cell Distribution Width 12.9 % Platelet Count 214 TH/MM3 Mean Platelet Volume 9.9 FL Neutrophils (%) (Auto) 57.8 % Lymphocytes (%) (Auto) 31.6 % Monocytes (%) (Auto) 7.9 % Eosinophils (%) (Auto) 2.1 % Basophils (%) (Auto) 0.6 % Neutrophils # (Auto) 3.9 TH/MM3 Lymphocytes # (Auto) 2.1 TH/MM3 Monocytes # (Auto) 0.5 TH/MM3 Eosinophils # (Auto) 0.1 TH/MM3 Basophils # (Auto) 0.0 TH/MM3 CBC Comment DIFF FINAL Differential Comment Prothrombin Time 12.5 SEC Prothromb Time International 1.1 RATIO Ratio Activated Partial 26.2 SEC Thromboplast Time Culture Results Microbiology Date/Time Procedure Status Source Growth 11/08/16 17:45 Aerobic Blood Culture - Preliminary Resulted Blood Peripheral NO GROWTH IN 2 DAYS 11/08/16 17:45 Anaerobic Blood Culture - Preliminary Resulted Blood Peripheral NO GROWTH IN 2 DAYS 11/08/16 17:50 Aerobic Blood Culture - Preliminary Resulted Blood Peripheral NO GROWTH IN 2 DAYS 11/08/16 17:50 Anaerobic Blood Culture - Preliminary Resulted Blood Peripheral NO GROWTH IN 2 DAYS Administered Medications Medications (Trade) Dose Ordered Sig/Tri Route PRN Reason Start Time Stop Time Status Last Admin Dose Admin Amphetamine/ Dextroamphetamine (Adderall) 30 mg DAILY PO 11/09/16 09:00 11/10/16 07:50 Lisinopril (Prinivil) 10 mg DAILY PO 11/09/16 09:00 11/10/16 07:50 Quetiapine Fumarate (SEROquel) 50 mg DAILY PO 11/09/16 09:00 11/10/16 07:50 Sodium Chloride (NS Flush) 2 ml BID IV FLUSH 11/08/16 21:00 11/10/16 07:51 Acetaminophen (Tylenol) 500 mg Q4H PRN PO PAIN 1-10 AND/OR FEVER >101F 11/08/16 17:15 11/09/16 20:43 Aminocaproic Acid (Amicar) 1,000 mg Q6HR PO 11/09/16 12:00 11/10/16 17:06 Clindamycin HCl (Cleocin) 300 mg Q6HR PO 11/10/16 18:00 11/10/16 17:06 Objective Remarks GENERAL: Well-nourished, well-developed patient. SKIN: Warm and dry. HEAD: Normocephalic. EYES: No scleral icterus. No injection or drainage. NECK: Supple, trachea midline. No JVD or lymphadenopathy. LYMPHATIC: No adenopathy. CARDIOVASCULAR: Regular rate and rhythm without murmurs. RESPIRATORY: Breath sounds equal bilaterally. No accessory muscle use. GASTROINTESTINAL: Abdomen soft, non-tender, nondistended. EXTREMITIES: L thigh swelling with L medial thigh dressing dry w/o oozing. MUSCULOSKELETAL: Adequate muscle tone. Assessment/Plan Problem List: (1) Factor V deficiency Status: Chronic Plan: Discussed w/ Dr Rodriguez possible secondary closure of open wound in L groin. Plan for surgery tomorrow. Need to continue FFP support. No bleeding at present but open wound would ooze. Ct L femur reviewed - no hematoma Gum bleeding resolved. Assessment 31 y/o with Factor V deficiency and L thigh wound small open ulcer. Plan 1. Surgery evaluation for closure of wound. 2. Continue FFP for hemostasis and planned procedure tomorrow. 3. Continue adjunctive therapy with Amicar. 4. Pt ok to shower. Gertrude Pope MD Nov 10, 2016 17:42
[2016-11-10 20:00] VITALS: BP 131/75; PULSE 76; RESP 22; TEMP 97.4; O2SAT 99
[2016-11-10] MEDS: INSULIN DETEMIR 100 UNITS/ML VIAL SQ SCH (21:56)
[2016-11-10] MEDS ORDERED: ACETAMINOPHEN 325 MG TAB PO PRN (23:00)
[2016-11-10] MEDS ORDERED: SODIUM CHLOR 0.9% 250 ML INJ 250 ML IV ONE (23:00)
[2016-11-10] MEDS ORDERED: diphenhydrAMINE HCL 25 MG CAP PO PRN (23:00)
[2016-11-11] VITALS (11 sets, daily range): BP systolic 107–138; BP diastolic 60–83; PULSE 67–94; RESP 17–20; TEMP 96.4–98.2; O2SAT 97–100
[2016-11-11] MEDS: CLINDAMYCIN 150 MG CAP PO SCH ×4 (00:19→16:19)
[2016-11-11] MEDS: AMINOCAPROIC ACID 500 MG TAB PO SCH ×4 (04:46→16:19)
[2016-11-11] MEDS: SODIUM CHLORIDE 0.9% IV SCH ×2 (05:19→06:00)
[2016-11-11] MEDS: AMINOCAPROIC ACID IV SCH ×2 (05:19→06:00)
[2016-11-11 05:44] LABS: AUTOMATED NEUTROPHIL # 3.9 TH/MM3 (1.8-7.7); BASOPHIL % 0.7 % (0.0-2.0); EOSINOPHIL # 0.2 TH/MM3 (0-0.4); EOSINOPHIL % 2.3 % (0.0-4.0); HEMATOCRIT 40.4 % (39.0-51.0); HEMO FLAGS DIFF FINAL; LYMPH % 32.4 % (9.0-44.0); LYMPHOCYTE # 2.2 TH/MM3 (1.0-4.8); MEAN CELL VOLUME 79.7 FL (80.0-100.0); MEAN CORPUSCULAR HEMOGLOBIN 28.3 PG (27.0-34.0); MEAN CORPUSCULAR HGB CONC 35.5 % (32.0-36.0); NEUT % 57.6 % (16.0-70.0); PLATELET COUNT 237 TH/MM3 (150-450); RED BLOOD COUNT 5.07 MIL/MM3 (4.50-5.90); RED CELL DISTRIBUTION WIDTH 12.6 % (11.6-17.2); WHITE BLOOD COUNT 6.8 TH/MM3 (4.0-11.0)
[2016-11-11] MEDS ORDERED: PHARMACY ORDERED LAB ONE (05:45)
[2016-11-11 05:59] LABS: APTT (PATIENT) 29.7 SEC (24.3-30.1); INTERNATIONAL NORMALIZED RATIO 1.3 RATIO; PROTHROMBIN TIME - PATIENT 14.3 SEC (9.8-11.6)
[2016-11-11 06:10] LABS: BICARBONATE 28.2 MEQ/L (21.0-32.0); POTASSIUM 3.7 MEQ/L (3.5-5.1)
[2016-11-11] MEDS: INSULIN ASPART SUPPLEMENTAL SCALE SQ SCH ×4 (06:12→21:14)
[2016-11-11] MEDS: QUEtiapine FUMARATE 25 MG TAB PO SCH (08:25)
[2016-11-11] MEDS: INSULIN DETEMIR 100 UNITS/ML VIAL SQ SCH ×2 (08:25→21:13)
[2016-11-11] MEDS: DEXTROAMPHETAMINE/AMPHETAMINE 30 MG TAB PO SCH (08:25)
[2016-11-11] MEDS: LISINOPRIL 10 MG TAB PO SCH (08:25)
[2016-11-11] MEDS: SODIUM CHLORIDE 0.9% FLUSH 10 ML FLUSH IV FLUSH SCH ×2 (08:25→21:13)
--- NOTE | 2016-11-11 09:29 | HHI.PR ---
Subjective Subjective Notes DAILY PROGRESS NOTE FOR SURGICAL ATTENDING, DR. KENNEDY RODRIGUEZ Resting in bed Had good night No complaints No bleeding from wound overnight Objective Vitals/I&O Vital Signs Date Time Temp Pulse Resp B/P Pulse Ox O2 Delivery O2 Flow Rate FiO2 11/11/16 08:00 97.9 67 17 108/65 99 11/08/16 18:35 Room Air Labs Laboratory Tests Test 11/11/16 04:45 White Blood Count 6.8 Red Blood Count 5.07 Hemoglobin 14.3 Hematocrit 40.4 Mean Corpuscular Volume 79.7 Mean Corpuscular Hemoglobin 28.3 Mean Corpuscular Hemoglobin 35.5 Concent Red Cell Distribution Width 12.6 Platelet Count 237 Mean Platelet Volume 9.8 Neutrophils (%) (Auto) 57.6 Lymphocytes (%) (Auto) 32.4 Monocytes (%) (Auto) 7.0 Eosinophils (%) (Auto) 2.3 Basophils (%) (Auto) 0.7 Neutrophils # (Auto) 3.9 Lymphocytes # (Auto) 2.2 Monocytes # (Auto) 0.5 Eosinophils # (Auto) 0.2 Basophils # (Auto) 0.0 CBC Comment DIFF FINAL Differential Comment Prothrombin Time 14.3 Prothromb Time International 1.3 Ratio Activated Partial 29.7 Thromboplast Time Sodium Level 133 Potassium Level 3.7 Chloride Level 96 Carbon Dioxide Level 28.2 Anion Gap 9 Blood Urea Nitrogen 10 Creatinine 1.04 Estimat Glomerular Filtration 101 Rate Random Glucose 324 Calcium Level 9.6 Date/Time Procedure Status Source Growth 11/08/16 17:50 Aerobic Blood Culture - Preliminary Resulted Blood Peripheral NO GROWTH IN 2 DAYS 11/08/16 17:50 Anaerobic Blood Culture - Preliminary Resulted Blood Peripheral NO GROWTH IN 2 DAYS Radiology Last 48 hours Impressions Lower Extremity CT 11/09/16 0000 Signed Impressions: Service Date/Time: Wednesday, November 09, 2016 19:45 - CONCLUSION: 1. Broad area of cellulitis and skin/superficial subcutaneous fat ulceration. No abscess, mass or hematoma. 2. Upper limits of normal left inguinal lymph nodes, presumably reactive. 3. Scattered small foci of myositis ossificans, most conspicuous of distal iliopsoas and mid vastus lateralis. 4. Chronic, benign-appearing bony excrescence and posteriorly the midshaft of the left femur, probably a tight lesion. Also no apparent old juvenile fibrocortical defect more distally in the femur. 5. Subcutaneous venous varicosities of the mid and distal thigh, mostly posteriorly and laterally. Thomas Hull MD Cardiovascular: Regular Lungs: Clear Abdomen: Non-distended, Non-tender Narrative Exam LEFT groin: very superficial wound with no bloody drainage on dressing A/P Problem List: (1) Open wound (2) Factor V deficiency (3) Cellulitis of left thigh (4) Chronic hepatitis C (5) HTN (hypertension) Assessment and Plan 31 year old male with Factor V deficiency with bleeding gums and LEFT groin wound -Will talk to Cuong from Wound Care Team about dressing options -Okay to shower -Regular diet -No surgical intervention planned at this time -Continue to monitor wound closely for bleeding Attending Statement NOTE FOR SURGICAL ATTENDING, DR. KENNEDY RODRIGUEZ Wound healing Discussed with Dr. Gertrude Pope Discussed with primary care team at the bedside Dry dressings each day I agree with above assessment and plan. The exam, history, and the medical decision-making described in the above note were completed with the assistance of the mid-level provider. I reviewed and agree with the findings presented. I attest that I had a [id number] encounter with the patient on the same day, and personally performed and documented my assessment and findings in the medical record. The following services were provided during this hospital visit: Chart data review, vital sign assessments/reviewing monitor data Review of consultations notes if present. Medication orders/review and/or management Ordering and/or reviewing lab tests Ordering and/or interpreting/reviewing x-rays and/or diagnostic studies Care of the patient and discussion of the patient with the care team Documentation time To help prompt me to consider important information that might be impacting today's encounter and assessment, information from prior notes written by myself or my colleagues may have been "brought forward/copy and pasted" into today's note. Problem Qualifiers (1) Chronic hepatitis C: Qualified Code: B18.2 - Chronic hepatitis C without hepatic coma (2) HTN (hypertension): Qualified Code: I10 - Essential hypertension Lissa Fermin Nov 11, 2016 09:29 Kennedy Rodriguez MD Nov 11, 2016 13:05
--- NOTE | 2016-11-11 10:42 | PD.ONC.PN ---
Subjective Subjective Remarks Afebrile overnight. Patient resting comfortably without complaint. Denies bleeding and per nurse no report of bleeding. Objective Data Date Time Temp Pulse Resp B/P Pulse Ox O2 Delivery O2 Flow Rate FiO2 11/11/16 08:00 97.9 67 17 108/65 99 11/11/16 06:35 97.0 71 20 123/78 100 11/11/16 05:15 96.4 77 20 138/71 11/11/16 05:00 98.0 74 20 110/65 11/11/16 04:00 98.1 79 20 116/75 99 11/11/16 02:08 97.9 71 20 107/66 100 11/11/16 01:48 97.8 76 20 128/60 98 11/11/16 00:00 98.2 88 20 123/83 99 11/10/16 20:00 97.4 76 22 131/75 99 11/10/16 16:00 97.7 78 18 141/82 98 11/10/16 12:00 96.0 93 17 137/83 100 11/11/16 11/11/16 11/11/16 07:00 15:00 23:00 Intake Total 1070 ml 120 ml Output Total 450 ml Balance 620 ml 120 ml Result Diagram: 11/11/16 0445 11/11/16 0445 Laboratory Results Laboratory Tests Test 11/11/16 04:45 White Blood Count 6.8 TH/MM3 Red Blood Count 5.07 MIL/MM3 Hemoglobin 14.3 GM/DL Hematocrit 40.4 % Mean Corpuscular Volume 79.7 FL Mean Corpuscular Hemoglobin 28.3 PG Mean Corpuscular Hemoglobin 35.5 % Concent Red Cell Distribution Width 12.6 % Platelet Count 237 TH/MM3 Mean Platelet Volume 9.8 FL Neutrophils (%) (Auto) 57.6 % Lymphocytes (%) (Auto) 32.4 % Monocytes (%) (Auto) 7.0 % Eosinophils (%) (Auto) 2.3 % Basophils (%) (Auto) 0.7 % Neutrophils # (Auto) 3.9 TH/MM3 Lymphocytes # (Auto) 2.2 TH/MM3 Monocytes # (Auto) 0.5 TH/MM3 Eosinophils # (Auto) 0.2 TH/MM3 Basophils # (Auto) 0.0 TH/MM3 CBC Comment DIFF FINAL Differential Comment Prothrombin Time 14.3 SEC Prothromb Time International 1.3 RATIO Ratio Activated Partial 29.7 SEC Thromboplast Time Sodium Level 133 MEQ/L Potassium Level 3.7 MEQ/L Chloride Level 96 MEQ/L Carbon Dioxide Level 28.2 MEQ/L Anion Gap 9 MEQ/L Blood Urea Nitrogen 10 MG/DL Creatinine 1.04 MG/DL Estimat Glomerular Filtration 101 ML/MIN Rate Random Glucose 324 MG/DL Calcium Level 9.6 MG/DL Culture Results Microbiology Date/Time Procedure Status Source Growth 11/08/16 17:45 Aerobic Blood Culture - Preliminary Resulted Blood Peripheral NO GROWTH IN 2 DAYS 11/08/16 17:45 Anaerobic Blood Culture - Preliminary Resulted Blood Peripheral NO GROWTH IN 2 DAYS 11/08/16 17:50 Aerobic Blood Culture - Preliminary Resulted Blood Peripheral NO GROWTH IN 2 DAYS 11/08/16 17:50 Anaerobic Blood Culture - Preliminary Resulted Blood Peripheral NO GROWTH IN 2 DAYS Administered Medications Medications (Trade) Dose Ordered Sig/Tri Route PRN Reason Start Time Stop Time Status Last Admin Dose Admin Amphetamine/ Dextroamphetamine (Adderall) 30 mg DAILY PO 11/09/16 09:00 11/11/16 08:25 Lisinopril (Prinivil) 10 mg DAILY PO 11/09/16 09:00 11/11/16 08:25 Quetiapine Fumarate (SEROquel) 50 mg DAILY PO 11/09/16 09:00 11/11/16 08:25 Sodium Chloride (NS Flush) 2 ml BID IV FLUSH 11/08/16 21:00 11/11/16 08:25 Acetaminophen (Tylenol) 500 mg Q4H PRN PO PAIN 1-10 AND/OR FEVER >101F 11/08/16 17:15 11/09/16 20:43 Insulin Detemir (Levemir Inj) 15 units Q12HR SQ 11/10/16 21:00 11/11/16 08:25 Clindamycin HCl 300 mg 300 mg Q6HR PO 11/10/16 18:00 11/11/16 05:20 Sodium Chloride 250 ml @ 15 mls/hr ONCE ONCE IV 11/10/16 23:00 11/11/16 15:39 11/11/16 00:21 Aminocaproic Acid/ Sodium Chloride (Amicar Inj/NS Inj) 104 ml @ 104 mls/hr Q6H IV 11/11/16 06:00 11/11/16 06:00 Objective Remarks GENERAL: Young man, sitting up in bed in nad. SKIN: Warm and dry. HEAD: Normocephalic. EYES: No injection or drainage. NECK: Supple, trachea midline. CARDIOVASCULAR: Regular rate and rhythm RESPIRATORY: Breath sounds equal bilaterally. No accessory muscle use. GASTROINTESTINAL: Abdomen soft, non-tender, nondistended. EXTREMITIES: No cyanosis NEUROLOGICAL: No obvious focal deficit. Awake, alert, and oriented x3. Assessment/Plan Problem List: (1) Factor V deficiency Status: Chronic Plan: --needs ~4 units FFP every other day to keep factor V activity at adequate levels to stop bleeding No bleeding at present but open wound would ooze. Ct L femur reviewed - no hematoma Gum bleeding resolved. Assessment 31 y/o with Factor V deficiency and L thigh wound small open ulcer. Plan 1. continue Amicar 1g PO q 6 hours 2. monitor CBC 3. will give FFP 4 units tomorrow, none today Attending Statement The exam, history, and the medical decision-making described in the above note were completed with the assistance of the mid-level provider. I reviewed and agree with the findings presented. I attest that I had a [id number] encounter with the patient on the same day, and personally performed and documented my assessment and findings in the medical record. Pt seen and examined. L groin wound improving, no oozing or bleeding. Discussed w Dr. Rodriguez who recommends against surgical intervention, wound care consulted. Continue dry dressing at present, dressing changed. Discussed with nursing, pt apparently not wishing to shower. FFP infusion resulted in normal PTT, PT mildly prolonged but no bleeding. Anticipate transfuse 4 FFP QOD monitoring for bleeding. Amicar OK PO. Hyperglycemia managed by primary team. Jelena Cali Nov 11, 2016 10:42 Gertrude Pope MD Nov 11, 2016 23:49
--- NOTE | 2016-11-11 13:23 | HHI.FPPN ---
Subjective Remarks Pt seen and examined this morning, no acute events overnight. Denies any active bleeding. He denies chest pain, sob, abdominal pain. He reports that he has used insulin in the past and is familiar with how to inject himself. (Michelle Elias MD R2) Objective Vitals Vital Signs Date Time Temp Pulse Resp B/P Pulse Ox O2 Delivery O2 Flow Rate FiO2 11/11/16 12:00 97.3 87 17 135/79 97 11/11/16 08:00 97.9 67 17 108/65 99 11/11/16 06:35 97.0 71 20 123/78 100 11/11/16 05:15 96.4 77 20 138/71 11/11/16 05:00 98.0 74 20 110/65 11/11/16 04:00 98.1 79 20 116/75 99 11/11/16 02:08 97.9 71 20 107/66 100 11/11/16 01:48 97.8 76 20 128/60 98 11/11/16 00:00 98.2 88 20 123/83 99 11/10/16 20:00 97.4 76 22 131/75 99 11/10/16 16:00 97.7 78 18 141/82 98 I/O 11/10/16 11/10/16 11/10/16 11/11/16 11/11/16 11/11/16 07:00 15:00 23:00 07:00 15:00 23:00 Intake Total 3220 ml 1472 ml 320 ml 1070 ml 120 ml Output Total 1400 ml 450 ml Balance 1820 ml 1472 ml 320 ml 620 ml 120 ml Intake Oral 280 ml 120 ml 320 ml 480 ml 120 ml IV Total 2324 ml 1352 ml 0 ml FFP 616 ml 590 ml Output Urine Total 1400 ml 450 ml # Voids 2 1 2 # Bowel Movements 0 0 0 (Michelle Elias MD R2) Result Diagram: 11/11/1644411/11/16444 Objective Remarks GENERAL: Well-nourished, well-developed 31-year-old Frannie male lying in NAD. SKIN: Warm and dry. No rash. HEENT: Atraumatic, normocephalic with EOMI. PERRLA. OP clear. Poor dentition. Uvula midline with MMM. No palpable LAD. No rhinorrhea or epistaxis. CARDIOVASCULAR: Regular rate and rhythm without obvious murmurs, gallops, or rubs. RESPIRATORY: Clear to auscultation bilaterally with no CRW. No increased work of breathing. GASTROINTESTINAL: Abdomen soft, non-tender, nondistended with positive bowel sounds. No masses appreciated. MUSCULOSKELETAL: No cyanosis or edema. Strength grossly WNL. LLE: Left inner thigh with approximately 3cm circular ulcerative wound with surrounding area induration. No fluctuance. No active drainage. Area is tender to palpation. Sensation and pulses intact throughout the extremity. NEURO/PSYCH: Afocal. Awake, alert, and oriented x3. No focal deficits. Patient does history of developmental delays (Michelle Elias MD R2) A/P Assessment and Plan Mr. Elias is a 31 y/o M with a PMHx of hepatitis C, ADHD, DM, and Factor V deficiency admitted for acute bleeding. Bleeding has resolved s/p FFP per Dr. Pope. In addition, he was found to have a large ulcerative wound on left upper thigh. s/d/w Dr. Boone Discharge Planning Anticipate discharge tomorrow after pt receives FFP. (Michelle Elias MD R2) Attending Attestation Patient seen and examined. Case reviewed and discussed with the resident team. Agree with plan of care as discussed with me and documented in the resident note. (Nadine Boone MD) Problem List: (1) Bleeding Status: Resolved Plan: Patient presenting to the emergency department with acute bleeding from his oral cavity and left lower extremity. Patient with factor V deficiency seen by Dr. Pope who requested the patient be admitted for FFP transfusion. Bleeding has resolved s/p 10 units of FFP. H/H stable. Coag profile WNL. Consulted hematology, appreciate recommendations Continue Amicar 1000 mg every 6 hours Anticipate administration of 4 units of FFP tomorrow (2) Factor V deficiency Status: Chronic Plan: Please see plan as above (3) Cellulitis of left thigh Status: Acute Plan: Patient presenting with bleeding and purulent discharge from ulcerative wound of the left thigh; bleeding has resolved and wound appears stable. Leukocytosis resolved. Lactic acid WNL. Ultrasound of LE: Suspect possible hematoma in the left groin LE CT: Broad area of cellulitis and skin subcutaneous fat ulceration. No abscess, mass, or hematoma. Upper limit of normal left inguinal lymph node. Scattered small foci of myositis ossificans Currently on board spectrum antibiotics with [id number] BID and Zosyn 3.375mg Q6h given history of diabetes. Will de-escalate antibiotics if patient continues to improve. Blood cultures 2 11/08: Pending No active drainage, thus unable to obtain wound culture Tylenol 500 mg every 4 hours when necessary for pain or fever greater than 101 degrees Gen. surgery consulted, appreciate recommendations. No surgical intervention anticipated. Wound nurse has been consulted for further recommendations, appreciate assistance. (4) CARMINE (acute kidney injury) Status: Acute Plan: Creatinine 1.73 on admission. CARMINE resolved s/p IVFs -Continue to monitor (5) Diabetes mellitus Status: Chronic Plan: Patient with history of diabetes mellitus. Currently only on metformin twice a day at home. Patient states that he does not check his blood sugars daily, but has been compliant with his medication. On admission patient's blood glucose elevated to 646. No evidence of DKA or HHS Blood glucose still significantly elevated; 300-400s over the past 24 hours. HbA1c: 11.7 Will increase Levemir to 20 units BID. Titrate up as needed Accuchecks and low dose SSI (6) HTN (hypertension) Status: Chronic Plan: Patient with chronic hypertension Continue home lisinopril 10 mg daily (7) Chronic hepatitis C Status: Chronic Plan: Patient with chronic hepatitis C, treatment naive CMP: AST 63, ALT 73 Continue to monitor Outpatient follow up with GI (8) Attention deficit hyperactivity disorder, predominantly inattentive type Status: Chronic Plan: Patient with ADHD Continue home Adderall Continue home Seroquel (9) Nutrition, metabolism, and development symptoms Status: Acute Plan: Fluids: HLIV since patient is tolerating po Diet: Diabetic diet as tolerated Electrolytes: Pseudohyponatremia; corrected sodium 136 DVT prophylaxis: SCD/TEDs, pharmacologic prophylaxis not indicated as patient currently bleeding with factor V deficiency (Michelle Elias MD R2) Problem Qualifiers (1) Diabetes mellitus: Qualified Code: E11.8 - Type 2 diabetes mellitus with complication, without long-term current use of insulin (2) HTN (hypertension): Qualified Code: I10 - Essential hypertension (3) Chronic hepatitis C: Qualified Code: B18.2 - Chronic hepatitis C without hepatic coma Michelle Elias MD R2 Nov 11, 2016 13:23 Nadine Boone MD Nov 12, 2016 13:44
[2016-11-11] MEDS: metFORMIN HCL 500 MG TAB PO SCH (17:33)
[2016-11-12] VITALS (13 sets, daily range): BP systolic 108–145; BP diastolic 62–83; PULSE 64–106; RESP 15–20; TEMP 96–98.4; O2SAT 95–100
[2016-11-12] MEDS: CLINDAMYCIN 150 MG CAP PO SCH ×5 (00:34→23:48)
[2016-11-12] MEDS: AMINOCAPROIC ACID 500 MG TAB PO SCH ×5 (00:34→23:48)
[2016-11-12 06:00] LABS: AUTOMATED NEUTROPHIL # 5.3 TH/MM3 (1.8-7.7); BASOPHIL # 0.1 TH/MM3 (0-0.2); BASOPHIL % 0.7 % (0.0-2.0); EOSINOPHIL # 0.2 TH/MM3 (0-0.4); EOSINOPHIL % 2.3 % (0.0-4.0); HEMATOCRIT 42.3 % (39.0-51.0); HEMO FLAGS DIFF FINAL; LYMPH % 28.3 % (9.0-44.0); LYMPHOCYTE # 2.4 TH/MM3 (1.0-4.8); MEAN CELL VOLUME 80.2 FL (80.0-100.0); MEAN CORPUSCULAR HEMOGLOBIN 27.9 PG (27.0-34.0); MEAN CORPUSCULAR HGB CONC 34.8 % (32.0-36.0); MONO % 7.1 % (0.0-8.0); NEUT % 61.6 % (16.0-70.0); PLATELET COUNT 249 TH/MM3 (150-450); RED BLOOD COUNT 5.28 MIL/MM3 (4.50-5.90); RED CELL DISTRIBUTION WIDTH 12.6 % (11.6-17.2); WHITE BLOOD COUNT 8.5 TH/MM3 (4.0-11.0)
[2016-11-12 06:20] LABS: POTASSIUM 3.8 MEQ/L (3.5-5.1)
[2016-11-12] MEDS: INSULIN ASPART SUPPLEMENTAL SCALE SQ SCH ×4 (06:41→21:30)
[2016-11-12] MEDS ORDERED: SODIUM CHLOR 0.9% 250 ML INJ 250 ML IV ONE (08:15)
[2016-11-12] MEDS: metFORMIN HCL 500 MG TAB PO SCH ×2 (09:05→17:47)
[2016-11-12] MEDS: QUEtiapine FUMARATE 25 MG TAB PO SCH (09:05)
[2016-11-12] MEDS: DEXTROAMPHETAMINE/AMPHETAMINE 30 MG TAB PO SCH (09:05)
[2016-11-12] MEDS: LISINOPRIL 10 MG TAB PO SCH (09:05)
[2016-11-12] MEDS: INSULIN DETEMIR 100 UNITS/ML VIAL SQ SCH (09:06)
[2016-11-12] MEDS: SODIUM CHLORIDE 0.9% FLUSH 10 ML FLUSH IV FLUSH SCH ×2 (09:11→21:29)
[2016-11-12] MEDS: INSULIN DETEMIR 100 UNITS/ML VIAL SQ ONE ×2 (09:45→11:04)
--- NOTE | 2016-11-12 12:39 | HHI.FPPN ---
Subjective Remarks Mr Elias feels well today. He has no complaints. His wound is healing very well and is about the size of a quarter with good granulation tissue. When questioned about his diabetes he states he has given himself insulin in the past but was most recently not on insulin. He reportedly has a caregiver who helps him and Mr Elias states he can give himself insulin. His glucoses have been decreasing, considering his HbA1C was more than 11 most recently, his glucoses being in the 200s are a big improvement but they go quite high during the day after his meals. He has drinks and probably food from an outside source so he is likely consuming more than the standard diabetic diet. He will need FFP every other day 4 units as long as he has an open wound so he is receiving his FFP today and could have this again on Monday at his Adjunct Trainer's office if he is ready to go home tomorrow. His wound is healing amazingly well so surgery did not feel any need to do skin grafting or other procedure. Objective Vitals Vital Signs Date Time Temp Pulse Resp B/P Pulse Ox O2 Delivery O2 Flow Rate FiO2 11/12/16 12:04 97.9 98 16 130/72 95 11/12/16 12:00 96.8 106 18 140/67 99 11/12/16 11:37 97.7 103 19 126/69 11/12/16 11:26 96.8 105 15 108/66 97 11/12/16 08:00 96.8 83 17 138/79 98 11/12/16 00:00 97.9 74 20 138/83 99 11/11/16 20:00 97.7 87 20 121/83 98 11/11/16 16:00 97.6 94 18 128/72 97 I/O 11/11/16 11/11/16 11/11/16 11/12/16 11/12/16 11/12/16 07:00 15:00 23:00 07:00 15:00 23:00 Intake Total 1070 ml 1280 ml 480 ml 720 ml Output Total 450 ml 500 ml Balance 620 ml 780 ml 480 ml 720 ml Intake Oral 480 ml 1080 ml 480 ml 720 ml IV Total 200 ml 0 ml 0 ml FFP 590 ml Output Urine Total 450 ml 500 ml # Voids 2 3 1 # Bowel Movements 0 0 Result Diagram: 11/12/16 0423 11/12/16 042 Objective Remarks GENERAL: Well-nourished, well-developed 31-year-old Frannie male lying in NAD. SKIN: Warm and dry. No rash. HEENT: Atraumatic, normocephalic with EOMI. PERRLA. OP clear. Poor dentition. Uvula midline with MMM. No palpable LAD. No rhinorrhea or epistaxis. CARDIOVASCULAR: Regular rate and rhythm without obvious murmurs, gallops, or rubs. RESPIRATORY: Clear to auscultation bilaterally with no CRW. No increased work of breathing. GASTROINTESTINAL: Abdomen soft, non-tender, nondistended with positive bowel sounds. No masses appreciated. MUSCULOSKELETAL: No cyanosis or edema. Strength grossly WNL. LLE: Left inner thigh with approximately 2 cm circular ulcerative wound with surrounding area induration. No fluctuance. No active drainage. Area is tender to palpation. Sensation and pulses intact throughout the extremity. Excellent granulation tissue at the base. NEURO/PSYCH: Afocal. Awake, alert, and oriented x3. No focal deficits. Patient does have history of developmental delays Urinary Catheter: No A/P Assessment and Plan Mr. Elias is a 31 y/o M with a PMHx of hepatitis C, ADHD, DM, and Factor V deficiency admitted for acute bleeding. Bleeding has resolved s/p FFP per Dr. Pope. In addition, he was found to have a large ulcerative wound on left upper thigh. Discharge Planning Anticipate discharge tomorrow after pt receives FFP and his DM is brought under better control. Problem List: (1) Bleeding Status: Resolved Plan: Patient presenting to the emergency department with acute bleeding from his oral cavity and left lower extremity. Patient with factor V deficiency seen by Dr. Pope who requested the patient be admitted for FFP transfusion. Bleeding has resolved s/p multiple units of FFP. H/H stable. Coag profile WNL. Consulted hematology, appreciate recommendations Continue Amicar 1000 mg po every 6 hours had administration of 4 units of FFP today and will need every other day until he has no open wounds. He can have FFP as an outpt in Hematologists's office. (2) Factor V deficiency Status: Chronic Plan: Please see plan as above (3) Cellulitis of left thigh Status: Acute Plan: Patient presented with bleeding and purulent discharge from ulcerative wound of the left thigh; bleeding has resolved and wound appears stable. Leukocytosis resolved. Lactic acid WNL. He had some purulent matter initially from edges of wound. Hematomas are good culture media for bacteria so he is being treated and continues to improve. Ultrasound of LE: Suspect possible hematoma in the left groin LE CT: Broad area of cellulitis and skin subcutaneous fat ulceration. No abscess, mass, or hematoma. Upper limit of normal left inguinal lymph node. Scattered small foci of myositis ossificans Was on broad spectrum antibiotics with [id number] BID and Zosyn 3.375mg Q6h given history of diabetes. Now just on po clindamycin. Blood cultures 2 11/08: Pending No active drainage, thus unable to obtain wound culture Tylenol 500 mg every 4 hours when necessary for pain or fever greater than 101 degrees Gen. surgery consulted, appreciate recommendations. No surgical intervention anticipated. Wound nurse has been consulted for further recommendations, appreciate assistance. Keeping wound moist as it has great granulation tissue and is clean and he is healing well. (4) CARMINE (acute kidney injury) Status: Acute Plan: Creatinine 1.73 on admission. CARMINE resolved s/p IVFs -Continue to monitor (5) Diabetes mellitus Status: Chronic Plan: Patient with history of diabetes mellitus. Currently only on metformin twice a day at home. Will give metformin 1000 mg BID here as no CTs or other studies are anticipated. Patient states that he does not check his blood sugars daily, but has been compliant with his medication. On admission patient's blood glucose elevated to 646. No evidence of DKA or HHS Blood glucose still significantly elevated; 300-400s over the past 24 hours with some 200s. HbA1c: 11.7 Will increase Levemir to 25 units am and 20 units pm. Titrate up as needed Accuchecks and low dose SSI working on plan for when he goes home. he has some developmental delay and when asked about care and diet for DM, he cannot give the best answers. He does have a shank sorter but will need to reach out to shank sorter to be sure that he will follow a better diet and be able to have his insulin correctly at home. Will also order HHC with a nurse to help him. The first goal is to get his glucoses to be in the low 200s if at all possible as he has been so high with his glucoses at home. HHC can only visit once per day so hopefully between them and the shank sorter, he can continue to improve to an even better glucose control. He may not be able to self monitor and do a sliding scale very well at home. (6) HTN (hypertension) Status: Chronic Plan: Patient with chronic hypertension Continue home lisinopril 10 mg daily (7) Chronic hepatitis C Status: Chronic Plan: Patient with chronic hepatitis C, treatment naive CMP: AST 63, ALT 73 Continue to monitor Outpatient follow up with GI (8) Attention deficit hyperactivity disorder, predominantly inattentive type Status: Chronic Plan: Patient with ADHD Continue home Adderall Continue home Seroquel (9) Nutrition, metabolism, and development symptoms Status: Acute Plan: Fluids: HLIV since patient is tolerating po Diet: Diabetic diet as tolerated, someone seems to be bringing outside food and drinks for him Electrolytes: Pseudohyponatremia; corrected sodium 136 DVT prophylaxis: SCD/TEDs, pharmacologic prophylaxis not indicated as patient currently bleeding with factor V deficiency Problem Qualifiers (1) Diabetes mellitus: Qualified Code: E11.8 - Type 2 diabetes mellitus with complication, without long-term current use of insulin (2) HTN (hypertension): Qualified Code: I10 - Essential hypertension (3) Chronic hepatitis C: Qualified Code: B18.2 - Chronic hepatitis C without hepatic coma Nadine Boone MD Nov 12, 2016 12:39
--- NOTE | 2016-11-12 12:42 | PD.ONC.PN ---
Subjective Subjective Remarks Afebrile overnight. patient resting comfortably, wound healing well without bleeding. Objective Data Date Time Temp Pulse Resp B/P Pulse Ox O2 Delivery O2 Flow Rate FiO2 11/12/16 12:04 97.9 98 16 130/72 95 11/12/16 12:00 96.8 106 18 140/67 99 11/12/16 11:37 97.7 103 19 126/69 11/12/16 11:26 96.8 105 15 108/66 97 11/12/16 08:00 96.8 83 17 138/79 98 11/12/16 00:00 97.9 74 20 138/83 99 11/11/16 20:00 97.7 87 20 121/83 98 11/11/16 16:00 97.6 94 18 128/72 97 Result Diagram: 11/12/16 0423 11/12/16 0423 Laboratory Results Laboratory Tests Test 11/12/16 11/12/16 04:23 08:14 White Blood Count 8.5 TH/MM3 Red Blood Count 5.28 MIL/MM3 Hemoglobin 14.7 GM/DL Hematocrit 42.3 % Mean Corpuscular Volume 80.2 FL Mean Corpuscular Hemoglobin 27.9 PG Mean Corpuscular Hemoglobin 34.8 % Concent Red Cell Distribution Width 12.6 % Platelet Count 249 TH/MM3 Mean Platelet Volume 10.0 FL Neutrophils (%) (Auto) 61.6 % Lymphocytes (%) (Auto) 28.3 % Monocytes (%) (Auto) 7.1 % Eosinophils (%) (Auto) 2.3 % Basophils (%) (Auto) 0.7 % Neutrophils # (Auto) 5.3 TH/MM3 Lymphocytes # (Auto) 2.4 TH/MM3 Monocytes # (Auto) 0.6 TH/MM3 Eosinophils # (Auto) 0.2 TH/MM3 Basophils # (Auto) 0.1 TH/MM3 CBC Comment DIFF FINAL Differential Comment Sodium Level 134 MEQ/L Potassium Level 3.8 MEQ/L Chloride Level 98 MEQ/L Carbon Dioxide Level 26.0 MEQ/L Anion Gap 10 MEQ/L Blood Urea Nitrogen 10 MG/DL Creatinine 0.95 MG/DL Estimat Glomerular Filtration 112 ML/MIN Rate Random Glucose 285 MG/DL Calcium Level 9.7 MG/DL Blood Bank Comment Administered Medications Medications (Trade) Dose Ordered Sig/Tri Route PRN Reason Start Time Stop Time Status Last Admin Dose Admin Amphetamine/ Dextroamphetamine (Adderall) 30 mg DAILY PO 11/09/16 09:00 11/12/16 09:05 Lisinopril (Prinivil) 10 mg DAILY PO 11/09/16 09:00 11/12/16 09:05 Quetiapine Fumarate (SEROquel) 50 mg DAILY PO 11/09/16 09:00 11/12/16 09:05 Sodium Chloride (NS Flush) 2 ml BID IV FLUSH 11/08/16 21:00 11/12/16 09:11 Acetaminophen (Tylenol) 500 mg Q4H PRN PO PAIN 1-10 AND/OR FEVER >101F 11/08/16 17:15 11/09/16 20:43 Clindamycin HCl (Cleocin) 300 mg Q6HR PO 11/10/16 18:00 11/12/16 11:24 Aminocaproic Acid 1000 mg 1,000 mg Q6HR PO 11/11/16 12:00 11/12/16 11:23 Sodium Chloride (NS 250 ml Inj) 250 ml @ 15 mls/hr ONCE ONCE IV 11/12/16 08:15 11/13/16 00:54 11/12/16 11:00 Objective Remarks GENERAL: Young man, lying in bed, watching TV SKIN: Warm and dry. healing wound, left thigh, no bleeding HEAD: Normocephalic. EYES: No injection or drainage. NECK: Supple, trachea midline. CARDIOVASCULAR: Regular rate and rhythm RESPIRATORY: Breath sounds equal bilaterally. No accessory muscle use. GASTROINTESTINAL: Abdomen soft, non-tender, nondistended. EXTREMITIES: No cyanosis NEUROLOGICAL: awake and alert, normal speech. moving all extremities. Assessment/Plan Problem List: (1) Factor V deficiency Status: Chronic Plan: --needs ~4 units FFP every other day to keep factor V activity at adequate levels to stop bleeding No bleeding at present but open wound would ooze. Ct L femur reviewed - no hematoma Gum bleeding resolved. Assessment 31 y/o with Factor V deficiency and L thigh wound small open ulcer. Plan 1. continue Amicar 1g PO q 6 hours 2. give FFP 4 units today 3. ok to d/c. patient will need to follow up at clinic on Monday Attending Statement The exam, history, and the medical decision-making described in the above note were completed with the assistance of the mid-level provider. I reviewed and agree with the findings presented. I attest that I had a [id number] encounter with the patient on the same day, and personally performed and documented my assessment and findings in the medical record. Jelena Cali Nov 12, 2016 12:42 Primo Aldridge MD Nov 13, 2016 00:10
--- NOTE | 2016-11-12 12:45 | HHI.FF ---
Face to Face Verification Diagnosis: (1) Elevated blood sugar (2) Diabetes mellitus (3) HTN (hypertension) (4) Abscess of groin, left (5) Bleeding (6) Factor V deficiency (7) Open wound Home Health Nursing Order: Medical education Signs/symptoms of disease process Diabetic education Medication education-adverse effect Wound care and dressing changes Nursing assessment with vital signs Instructions: will need wound bandage changed daily with vaseline gauze and dry bandage over this. He has DM and his glucoses are very high (600s when he came in hospital). will need help with checking glucoses and insulin to be sure he is doing well. he is not educated on diet as well I have seen patient Juni Elias on 11/12/16. My clinical findings support the need for the requested home health care services because: Med compliance is questionable Limited ability to care for self Impaired cognition/judgement Infection w/ risk of complications Injectable med education/admin I certify that my clinical findings support that this patient is homebound because: Impaired cognitive ability/safety Need for psychosocial assistance Nadine Boone MD Nov 12, 2016 12:45
--- NOTE | 2016-11-12 13:37 | HHI.DCPOC ---
Discharge Care Plan Diagnosis: (1) Abscess of groin, left (2) Cellulitis of left thigh (3) Bleeding Goals to Promote Your Health * To prevent worsening of your condition and complications * To maintain your health at the optimal level Directions to Meet Your Goals Take your medications as prescribed Follow your dietary instruction Follow activity as directed Keep your appointments as scheduled Take your immunizations and boosters as scheduled If your symptoms worsen call your PCP, if no PCP go to Urgent Care Center or Emergency Room Smoking is Dangerous to Your Health. Avoid second hand smoke Call the 24-hour hour crisis hotline for domestic abuse at Jv Granados MD R1 Nov 12, 2016 13:37
--- NOTE | 2016-11-12 16:30 | HHI.PR ---
Subjective Subjective Notes No complaints Objective Vitals/I&O Vital Signs Date Time Temp Pulse Resp B/P Pulse Ox O2 Delivery O2 Flow Rate FiO2 11/12/16 15:24 98.4 94 16 133/62 99 11/08/16 18:35 Room Air Labs Laboratory Tests Test 11/12/16 11/12/16 04:23 08:14 White Blood Count 8.5 Red Blood Count 5.28 Hemoglobin 14.7 Hematocrit 42.3 Mean Corpuscular Volume 80.2 Mean Corpuscular Hemoglobin 27.9 Mean Corpuscular Hemoglobin 34.8 Concent Red Cell Distribution Width 12.6 Platelet Count 249 Mean Platelet Volume 10.0 Neutrophils (%) (Auto) 61.6 Lymphocytes (%) (Auto) 28.3 Monocytes (%) (Auto) 7.1 Eosinophils (%) (Auto) 2.3 Basophils (%) (Auto) 0.7 Neutrophils # (Auto) 5.3 Lymphocytes # (Auto) 2.4 Monocytes # (Auto) 0.6 Eosinophils # (Auto) 0.2 Basophils # (Auto) 0.1 CBC Comment DIFF FINAL Differential Comment Sodium Level 134 Potassium Level 3.8 Chloride Level 98 Carbon Dioxide Level 26.0 Anion Gap 10 Blood Urea Nitrogen 10 Creatinine 0.95 Estimat Glomerular Filtration 112 Rate Random Glucose 285 Calcium Level 9.7 Blood Bank Comment Date/Time Procedure Status Source Growth 11/08/16 17:50 Aerobic Blood Culture - Preliminary Resulted Blood Peripheral NO GROWTH IN 4 DAYS 11/08/16 17:50 Anaerobic Blood Culture - Preliminary Resulted Blood Peripheral NO GROWTH IN 4 DAYS Radiology Last 48 hours Impressions Lower Extremity CT 11/09/16 0000 Signed Impressions: Service Date/Time: Wednesday, November 09, 2016 19:45 - CONCLUSION: 1. Broad area of cellulitis and skin/superficial subcutaneous fat ulceration. No abscess, mass or hematoma. 2. Upper limits of normal left inguinal lymph nodes, presumably reactive. 3. Scattered small foci of myositis ossificans, most conspicuous of distal iliopsoas and mid vastus lateralis. 4. Chronic, benign-appearing bony excrescence and posteriorly the midshaft of the left femur, probably a tight lesion. Also no apparent old juvenile fibrocortical defect more distally in the femur. 5. Subcutaneous venous varicosities of the mid and distal thigh, mostly posteriorly and laterally. Thomas Hull MD Lungs: Clear Abdomen: Non-distended Narrative Exam Left thigh wound with minimal drainage; dressing just change; nurse states minimal drainage at time of dressing change A/P Problem List: (1) Open wound (2) Factor V deficiency (3) Cellulitis of left thigh (4) Chronic hepatitis C (5) HTN (hypertension) (6) Diabetes mellitus (7) Bleeding (8) Elevated blood sugar Assessment and Plan 31 year old male with Factor V deficiency with bleeding gums and LEFT groin wound Noncompliant diabetic with poor glucose control -ADA diet -No surgical intervention planned at this time -Continue to monitor wound closely for bleeding -Will see intermittently if no further bleeding Problem Qualifiers (1) Chronic hepatitis C: Qualified Code: B18.2 - Chronic hepatitis C without hepatic coma (2) HTN (hypertension): Qualified Code: I10 - Essential hypertension (3) Diabetes mellitus: Qualified Code: E11.8 - Type 2 diabetes mellitus with complication, without long-term current use of insulin Alphonso Zamora MD Nov 12, 2016 16:29
[2016-11-12] MEDS ORDERED: INSULIN DETEMIR 100 UNITS/ML VIAL SQ SCH (21:00)
[2016-11-13] VITALS: BP 111/54; PULSE 74; RESP 20; TEMP 97.3; O2SAT 100
[2016-11-13] MEDS: CLINDAMYCIN 150 MG CAP PO SCH ×2 (05:41→11:04)
[2016-11-13] MEDS: AMINOCAPROIC ACID 500 MG TAB PO SCH ×2 (05:41→11:05)
[2016-11-13] MEDS: INSULIN ASPART SUPPLEMENTAL SCALE SQ SCH ×2 (05:42→11:04)
[2016-11-13 05:44] LABS: AUTOMATED NEUTROPHIL # 5.5 TH/MM3 (1.8-7.7); BASOPHIL # 0.1 TH/MM3 (0-0.2); BASOPHIL % 0.6 % (0.0-2.0); EOSINOPHIL # 0.2 TH/MM3 (0-0.4); EOSINOPHIL % 1.9 % (0.0-4.0); HEMATOCRIT 41.4 % (39.0-51.0); HEMO FLAGS DIFF FINAL; LYMPHOCYTE # 2.6 TH/MM3 (1.0-4.8); MEAN CELL VOLUME 80.7 FL (80.0-100.0); MEAN CORPUSCULAR HGB CONC 34.6 % (32.0-36.0); MONO % 6.3 % (0.0-8.0); NEUT % 62.2 % (16.0-70.0); PLATELET COUNT 242 TH/MM3 (150-450); RED BLOOD COUNT 5.12 MIL/MM3 (4.50-5.90); RED CELL DISTRIBUTION WIDTH 12.6 % (11.6-17.2); WHITE BLOOD COUNT 8.9 TH/MM3 (4.0-11.0)
[2016-11-13 05:48] LABS: BICARBONATE 28.8 MEQ/L (21.0-32.0); POTASSIUM 3.6 MEQ/L (3.5-5.1)
[2016-11-13] MEDS ORDERED: INSULIN DETEMIR 100 UNITS/ML VIAL SQ SCH (07:00)
[2016-11-13] MEDS ORDERED: METF500 PO (07:58)
[2016-11-13 08:00] VITALS: BP 107/65; PULSE 71; RESP 20; TEMP 96.4; O2SAT 100
[2016-11-13] MEDS: metFORMIN HCL 500 MG TAB PO SCH (08:36)
[2016-11-13] MEDS: QUEtiapine FUMARATE 25 MG TAB PO SCH (08:36)
[2016-11-13] MEDS: LISINOPRIL 10 MG TAB PO SCH (08:36)
[2016-11-13] MEDS: DEXTROAMPHETAMINE/AMPHETAMINE 30 MG TAB PO SCH (08:36)
[2016-11-13] MEDS: SODIUM CHLORIDE 0.9% FLUSH 10 ML FLUSH IV FLUSH SCH (08:37)
--- NOTE | 2016-11-13 11:10 | HHI.FPPN ---
Subjective Remarks Patient seen and examined this morning by medical team. No acute events over night with vital signs within normal limits. Patient states that he is doing well and wants to go home today. Per discussion with Case Management and the patient, Ms. Schmidt in the computer is listed as his mother. 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 She was contacted and agreed to discharge for the patient. She will arrange to transport the patient and will be able to follow up with Hematology tomorrow for his FFP administration in office. He has no complaints this morning and denies any fevers, chills, SOB, chest pain, NVD, or calf tenderness. Objective Vitals Vital Signs Date Time Temp Pulse Resp B/P Pulse Ox O2 Delivery O2 Flow Rate FiO2 11/13/16 08:00 96.4 71 20 107/65 100 11/13/16 00:00 97.3 74 20 111/54 100 11/12/16 20:00 97.3 81 20 145/74 100 11/12/16 17:51 98.2 64 122/73 99 11/12/16 16:00 97.0 76 16 142/73 97 11/12/16 15:24 98.4 94 16 133/62 99 11/12/16 13:53 96.0 86 19 117/68 100 11/12/16 13:35 96.5 78 17 129/69 99 11/12/16 13:24 96.5 78 17 129/69 99 11/12/16 12:04 97.9 98 16 130/72 95 11/12/16 12:00 96.8 106 18 140/67 99 11/12/16 11:37 97.7 103 19 126/69 11/12/16 11:26 96.8 105 15 108/66 97 I/O 11/12/16 11/12/16 11/12/16 11/13/16 11/13/16 11/13/16 07:00 15:00 23:00 07:00 15:00 23:00 Intake Total 720 ml 769 ml 220 ml 240 ml Balance 720 ml 769 ml 220 ml 240 ml Intake Oral 720 ml 400 ml 220 ml 240 ml IV Total 0 ml FFP 369 ml # Voids 1 4 4 1 # Bowel Movements 0 Result Diagram: 11/13/16 0410 4/16/17 0410 Objective Remarks GENERAL: Well-nourished, well-developed 31-year-old Frannie male lying in NAD. SKIN: Warm and dry. No rash. HEENT: Atraumatic, normocephalic with EOMI. PERRLA. OP clear. Poor dentition. Uvula midline with MMM. No palpable LAD. No rhinorrhea or epistaxis. CARDIOVASCULAR: Regular rate and rhythm without obvious murmurs, gallops, or rubs. RESPIRATORY: Clear to auscultation bilaterally with no CRW. No increased work of breathing. GASTROINTESTINAL: Abdomen soft, non-tender, nondistended with positive bowel sounds. No masses appreciated. MUSCULOSKELETAL: No cyanosis or edema. Strength grossly WNL. LLE: Left inner thigh with approximately 2 cm circular ulcerative wound with surrounding area induration. No fluctuance. No active drainage. Area is tender to palpation. Sensation and pulses intact throughout the extremity. Excellent granulation tissue at the base. Bandage prior to examination was CDI. NEURO/PSYCH: Afocal. Awake, alert, and oriented x3. No focal deficits. Patient does have history of developmental delays A/P Assessment and Plan Mr. Elias is a 31 y/o M with a PMHx of hepatitis C, ADHD, DM, and Factor V deficiency admitted for acute bleeding. Bleeding has resolved s/p FFP per Dr. Pope. In addition, he was found to have a large ulcerative wound on left upper thigh. Discharge Planning Patient to be discharged home today with follow up appointment with Hematology tomorrow for FFP administration. DW: Dr. Magallanes and Dr. Abhishek Elias Problem List: (1) Bleeding Status: Resolved Plan: Patient presenting to the emergency department with acute bleeding from his oral cavity and left lower extremity. Patient with factor V deficiency seen by Dr. Pope who requested the patient be admitted for FFP transfusion. Bleeding has resolved s/p multiple units of FFP. H/H stable. Coag profile WNL. Consulted hematology, appreciate recommendations Continue Amicar 1000 mg po every 6 hours Patient to follow up with Dr. Pope on 11/14/16, for administration of FFP. Patient will need FFP every other day until LLE wound is closed per Hematology. (2) Factor V deficiency Status: Chronic Plan: Please see plan as above (3) Cellulitis of left thigh Status: Acute Plan: Patient presented with bleeding and purulent discharge from ulcerative wound of the left thigh; bleeding has resolved and wound appears stable. Leukocytosis resolved. Lactic acid WNL. He had some purulent matter initially from edges of wound. Hematomas are good culture media for bacteria so he is being treated and continues to improve. Ultrasound of LE: Suspect possible hematoma in the left groin LE CT: Broad area of cellulitis and skin subcutaneous fat ulceration. No abscess, mass, or hematoma. Upper limit of normal left inguinal lymph node. Scattered small foci of myositis ossificans Was on broad spectrum antibiotics with [id number] BID and Zosyn 3.375mg Q6h given history of diabetes. Transitioned to PO Clindamycin with good response. He will be discharged home on Clindamycin and team will plan to treat for 7 days. Blood cultures 2 11/08: NTD No active drainage, thus unable to obtain wound culture Tylenol 500 mg every 4 hours when necessary for pain or fever greater than 101 degrees Gen. surgery consulted, appreciate recommendations. No surgical intervention anticipated. Wound nurse has been consulted for further recommendations, appreciate assistance. Keeping wound moist as it has great granulation tissue and is clean and he is healing well. He will be discharged home with home health to assist with dressing changes. (4) CARMINE (acute kidney injury) Status: Acute Plan: Creatinine 1.73 on admission. CARMINE resolved s/p IVFs -Continue to monitor (5) Diabetes mellitus Status: Chronic Plan: Patient with history of diabetes mellitus. Currently only on metformin twice a day at home. Will give metformin 1000 mg BID here as no CTs or other studies are anticipated. Patient states that he does not check his blood sugars daily, but has been compliant with his medication. On admission patient's blood glucose elevated to 646. No evidence of DKA or HHS HbA1c: 11.7 B-298 over last 24 hours with 19 units of SSI Increased Levemir to 25 units am and 20 units pm. Increased and started Metformin to 1000mg BID Accuchecks and low dose SSI Patient to be discharged home on Metformin 1000mg BID with Levemir 25u QAM and 20u QPM Patient to follow up with PCP, Dr. Saran Simon, in 2-3 days for diabetic education and follow up. Glucometer kit and supplies ordered. (6) HTN (hypertension) Status: Chronic Plan: Patient with chronic hypertension Continue home lisinopril 10 mg daily (7) Chronic hepatitis C Status: Chronic Plan: Patient with chronic hepatitis C, treatment naive CMP: AST 63, ALT 73 Continue to monitor Outpatient follow up with GI (8) Attention deficit hyperactivity disorder, predominantly inattentive type Status: Chronic Plan: Patient with ADHD Continue home Adderall Continue home Seroquel (9) Nutrition, metabolism, and development symptoms Status: Acute Plan: Fluids: None as patient hydrated on PO fluids Diet: Diabetic diet as tolerated, someone seems to be bringing outside food and drinks for him which likely contributes to his hyperglycemia Electrolytes: WNL DVT prophylaxis: SCD/TEDs, pharmacologic prophylaxis not indicated as patient currently bleeding with factor V deficiency Problem Qualifiers (1) Diabetes mellitus: Qualified Code: E11.8 - Type 2 diabetes mellitus with complication, without long-term current use of insulin (2) HTN (hypertension): Qualified Code: I10 - Essential hypertension (3) Chronic hepatitis C: Qualified Code: B18.2 - Chronic hepatitis C without hepatic coma Jv Granados MD R1 Nov 13, 2016 11:10
[2016-11-13] MEDS ORDERED: GLUCTES12 (11:15)
[2016-11-13] MEDS ORDERED: CLIN150 PO (11:15)
[2016-11-13] MEDS ORDERED: GLUCKIT15 (11:15)
[2016-11-13] MEDS ORDERED: LANCETS1 MI1 (11:15)
[2016-11-13] MEDS ORDERED: INSU1MIS15 (11:15)
[2016-11-13] MEDS ORDERED: LEVEMIR SQ ×2 (11:15)
[2016-11-13 12:00] VITALS: BP 116/63; PULSE 109; RESP 20; TEMP 98.1; O2SAT 99
--- NOTE | 2016-11-13 14:50 | HHI.PR ---
Subjective Subjective Notes DAILY PROGRESS NOTE FOR SURGICAL ATTENDING, DR. ZARA RODRIGUEZ Up in bed Objective Vitals/I&O Vital Signs Date Time Temp Pulse Resp B/P Pulse Ox O2 Delivery O2 Flow Rate FiO2 11/13/16 12:00 98.1 109 20 116/63 99 Labs Laboratory Tests Test 11/13/16 04:10 White Blood Count 8.9 Red Blood Count 5.12 Hemoglobin 14.3 Hematocrit 41.4 Mean Corpuscular Volume 80.7 Mean Corpuscular Hemoglobin 28.0 Mean Corpuscular Hemoglobin 34.6 Concent Red Cell Distribution Width 12.6 Platelet Count 242 Mean Platelet Volume 9.7 Neutrophils (%) (Auto) 62.2 Lymphocytes (%) (Auto) 29.0 Monocytes (%) (Auto) 6.3 Eosinophils (%) (Auto) 1.9 Basophils (%) (Auto) 0.6 Neutrophils # (Auto) 5.5 Lymphocytes # (Auto) 2.6 Monocytes # (Auto) 0.6 Eosinophils # (Auto) 0.2 Basophils # (Auto) 0.1 CBC Comment DIFF FINAL Differential Comment Sodium Level 133 Potassium Level 3.6 Chloride Level 97 Carbon Dioxide Level 28.8 Anion Gap 7 Blood Urea Nitrogen 12 Creatinine 1.16 Estimat Glomerular Filtration 89 Rate Random Glucose 273 Calcium Level 9.7 Date/Time Procedure Status Source Growth 11/08/16 17:50 Aerobic Blood Culture - Final Complete Blood Peripheral NO GROWTH IN 5 DAYS 11/08/16 17:50 Anaerobic Blood Culture - Final Complete Blood Peripheral NO GROWTH IN 5 DAYS Radiology Last 48 hours Impressions Lower Extremity CT 11/09/16 0000 Signed Impressions: Service Date/Time: Wednesday, November 09, 2016 19:45 - CONCLUSION: 1. Broad area of cellulitis and skin/superficial subcutaneous fat ulceration. No abscess, mass or hematoma. 2. Upper limits of normal left inguinal lymph nodes, presumably reactive. 3. Scattered small foci of myositis ossificans, most conspicuous of distal iliopsoas and mid vastus lateralis. 4. Chronic, benign-appearing bony excrescence and posteriorly the midshaft of the left femur, probably a tight lesion. Also no apparent old juvenile fibrocortical defect more distally in the femur. 5. Subcutaneous venous varicosities of the mid and distal thigh, mostly posteriorly and laterally. Thomas Hull MD Narrative Exam Dressing attended by nursing staff A/P Problem List: (1) Open wound Plan: Left groin (2) Factor V deficiency (3) Cellulitis of left thigh (4) Chronic hepatitis C (5) HTN (hypertension) (6) Diabetes mellitus (7) Bleeding (8) Elevated blood sugar Assessment and Plan 31 year old male with Factor V deficiency with bleeding gums and LEFT groin wound - -Okay to shower -Regular diet -No surgical intervention planned at this time -Continue to monitor wound closely for bleeding Attending Statement NOTE FOR SURGICAL ATTENDING, DR. ZARA RODRIGUEZ I attest that I had a [id number] encounter with the patient on the same day, and personally performed and documented my assessment and findings in the medical record. The following services were provided during this hospital visit: Chart data review, vital sign assessments/reviewing monitor data Review of consultations notes if present. Medication orders/review and/or management Ordering and/or reviewing lab tests Ordering and/or interpreting/reviewing x-rays and/or diagnostic studies Care of the patient and discussion of the patient with the care team Documentation time To help prompt me to consider important information that might be impacting today's encounter and assessment, information from prior notes written by myself or my colleagues may have been "brought forward/copy and pasted" into today's note. Problem Qualifiers (1) Chronic hepatitis C: Qualified Code: B18.2 - Chronic hepatitis C without hepatic coma (2) HTN (hypertension): Qualified Code: I10 - Essential hypertension (3) Diabetes mellitus: Qualified Code: E11.8 - Type 2 diabetes mellitus with complication, without long-term current use of insulin Zara Rodriguez MD Nov 13, 2016 14:50
[2016-12-15] MEDS ORDERED: METF1000 PO (06:31)
--- NOTE | 2016-12-15 12:22 | HHI.DS ---
Discharge Summary Admission Date Nov 08, 2016 at 16:02 Discharge Date: Nov 13, 2016 Admitting Diagnosis Factor V Leiden, mucosal bleeding (1) Bleeding Diagnosis: Principal Plan: Patient presenting to the emergency department with acute bleeding from his oral cavity and left lower extremity. Patient with factor V deficiency seen by Dr. Pope who requested the patient be admitted for FFP transfusion. Bleeding has resolved s/p multiple units of FFP. H/H stable. Coag profile WNL. Consulted hematology, appreciate recommendations Continue Amicar 1000 mg po every 6 hours Patient to follow up with Dr. Pope on 11/14/16, for administration of FFP. Patient will need FFP every other day until LLE wound is closed per Hematology. (2) Factor V deficiency Diagnosis: Principal Plan: Please see plan as above (3) Cellulitis of left thigh Diagnosis: Principal Plan: Patient presented with bleeding and purulent discharge from ulcerative wound of the left thigh; bleeding has resolved and wound appears stable. Leukocytosis resolved. Lactic acid WNL. He had some purulent matter initially from edges of wound. Hematomas are good culture media for bacteria so he is being treated and continues to improve. Ultrasound of LE: Suspect possible hematoma in the left groin LE CT: Broad area of cellulitis and skin subcutaneous fat ulceration. No abscess, mass, or hematoma. Upper limit of normal left inguinal lymph node. Scattered small foci of myositis ossificans Was on broad spectrum antibiotics with [id number] BID and Zosyn 3.375mg Q6h given history of diabetes. Transitioned to PO Clindamycin with good response. He will be discharged home on Clindamycin and team will plan to treat for 7 days. Blood cultures 2 11/08: NTD No active drainage, thus unable to obtain wound culture Tylenol 500 mg every 4 hours when necessary for pain or fever greater than 101 degrees Gen. surgery consulted, appreciate recommendations. No surgical intervention anticipated. Wound nurse has been consulted for further recommendations, appreciate assistance. Keeping wound moist as it has great granulation tissue and is clean and he is healing well. He will be discharged home with home health to assist with dressing changes. (4) CARMINE (acute kidney injury) Diagnosis: Principal Plan: Creatinine 1.73 on admission. CARMINE resolved s/p IVFs -Continue to monitor (5) Diabetes mellitus Diagnosis: Secondary Plan: Patient with history of diabetes mellitus. Currently only on metformin twice a day at home. Will give metformin 1000 mg BID here as no CTs or other studies are anticipated. Patient states that he does not check his blood sugars daily, but has been compliant with his medication. On admission patient's blood glucose elevated to 646. No evidence of DKA or HHS HbA1c: 11.7 B-298 over last 24 hours with 19 units of SSI Increased Levemir to 25 units am and 20 units pm. Increased and started Metformin to 1000mg BID Accuchecks and low dose SSI Patient to be discharged home on Metformin 1000mg BID with Levemir 25u QAM and 20u QPM Patient to follow up with PCP, Dr. Saran Simon, in 2-3 days for diabetic education and follow up. Glucometer kit and supplies ordered. (6) HTN (hypertension) Diagnosis: Secondary Plan: Patient with chronic hypertension Continue home lisinopril 10 mg daily (7) Chronic hepatitis C Diagnosis: Secondary Plan: Patient with chronic hepatitis C, treatment naive CMP: AST 63, ALT 73 Continue to monitor Outpatient follow up with GI (8) Attention deficit hyperactivity disorder, predominantly inattentive type Diagnosis: Secondary Plan: Patient with ADHD Continue home Adderall Continue home Seroquel (9) Nutrition, metabolism, and development symptoms Diagnosis: Principal Plan: Fluids: None as patient hydrated on PO fluids Diet: Diabetic diet as tolerated, someone seems to be bringing outside food and drinks for him which likely contributes to his hyperglycemia Electrolytes: WNL DVT prophylaxis: SCD/TEDs, pharmacologic prophylaxis not indicated as patient currently bleeding with factor V deficiency Brief History Mr. Elias is a 31 y/o M with a PMHx of hepatitis C, ADHD, developmental delay , DM, and Factor V deficiency presenting with acute bleeding. His caregiver was not at the bedside, therefore most of his history is per the ER staff as the patient is a poor historian. His symptoms started the day before admission per his caregiver and last week per Mr. Elias, when he started bleeding without trauma from the gums and from an abscess on his inner L thigh. He did not mention any bleeding to the caregivers until they noticed he had blood on his gums. He reports that approximately a cup of blood was lost over the past week. He states that his LLE started bleeding night and has had "a lot of bleeding to cover his entire pants." He reports that the abscess of his L inner thigh started to "raise up" overnight. He denies any trauma or recent injury. He denies any pain in his LLE, however he did complain to his caregiver that he has some mild weakness and tenderness. He reports that he has been compliant with his medications. Otherwise he has no complaints denies any fevers, chills, SOB, chest pain, NVD, or calf tenderness. He also denies any bloody vomiting, diarrhea, or hematuria. For his DM, he does not check his BG and states that he "just takes his pill." He is a [facility]. His vegetable loader is Dr. Pope He is not having any bleeding in his gums now. he has some oozing continuing from his left inner thigh. A small amount of purulent material was able to be expressed from that area and it is an extensive hematoma per ultrasound but I did not find fluctuance today. PE at Discharge GENERAL: Well-nourished, well-developed 31-year-old Frannie male lying in NAD. SKIN: Warm and dry. No rash. HEENT: Atraumatic, normocephalic with EOMI. PERRLA. OP clear. Poor dentition. Uvula midline with MMM. No palpable LAD. No rhinorrhea or epistaxis. CARDIOVASCULAR: Regular rate and rhythm without obvious murmurs, gallops, or rubs. RESPIRATORY: Clear to auscultation bilaterally with no CRW. No increased work of breathing. GASTROINTESTINAL: Abdomen soft, non-tender, nondistended with positive bowel sounds. No masses appreciated. MUSCULOSKELETAL: No cyanosis or edema. Strength grossly WNL. LLE: Left inner thigh with approximately 2 cm circular ulcerative wound with surrounding area induration. No fluctuance. No active drainage. Area is tender to palpation. Sensation and pulses intact throughout the extremity. Excellent granulation tissue at the base. Bandage prior to examination was CDI. NEURO/PSYCH: Afocal. Awake, alert, and oriented x3. No focal deficits. Patient does have history of developmental delays Hospital Course Patient was admitted and started on Vancomycin and Zosyn for his cellulitis with open wound of the L thigh. General surgery was consulted who did not recommend surgical closure of the wound. At discharge he was continued on Clindamycin for total of 7. He was transfused a total of 16 units of FFP per Hematology's recommendations with continuation of Amicar. He responded appropriately with no signs of active bleeding at time of discharge. He will follow up with Dr. Pope on 11/14/16 for continuation of FFP every other day until his would is closed. For his DM, the medical team increased his insulin regiment to 25 units QAM and 20 units QHS along with 1000mg of Metformin BID. He was discharged with orders for a glucometer with education to his caregiver to assist with his accuchecks. He will follow up with his PCP in 2 -3 days for re-evaluation. Pt Condition on Discharge: Stable Discharge Disposition: Discharge Home Discharge Instructions DIET: Follow Instructions for: Diabetic Diet Activities you can perform: Regular-No Restrictions, Shower Only-No Bath, See Additionl Instruction Other Activity Instructions: Wound care per home health nursing. Follow up Referrals: Oncology - 11/14/16 with Gertrude Pope MD Follow up in hematology clinic on Monday PCP Follow-up - 2-3 Days with Saran Simon MD R2 New Medications: Blood Glucose Monitoring W/Device (Glucocom Blood Glucose Mo W/Device) 1 Kit Kit 1 KIT .ROUTE DIRECTED Blood Sugar Management #1 KIT Glucocom Test Strips (Glucocom Test Strips) 1 Karie Karie 1 EA .ROUTE DIRECTED Blood Sugar Management #1 BOX Insulin Syringe/U-100/31G X 5/16" 1 ml (Insulin Syringe/U-100/31G X 5/16" 1 ml) 1 Mis Mis 1 EA .ROUTE DIRECTED Blood Sugar Management #1 Ref 0 BOX Lancets (Lancets) 1 Mis Mis 1 EA .ROUTE DIRECTED Blood Sugar Management #1 Ref 0 BOX Clindamycin (Cleocin) 150 Mg Cap 300 MG PO Q6HR #8 CAP Insulin Detemir Inj (Levemir Inj) 1,000 unit/ 10 ML Vial 20 UNITS SQ HS #1 VIAL Insulin Detemir Inj (Levemir Inj) 1,000 unit/ 10 ML Vial 25 UNITS SQ AC BREAKFAST #1 VIAL Continued Medications: Amphetamine-Dextroamphetamine (Adderall) 30 Mg Tab 30 MG PO DAILY Avoid late evening doses. Space doses at least 4 to 6 hours if more than once/day dosing. Hyperactivity Control #30 Ref 1 TAB Lisinopril (Lisinopril) 10 Mg Tab 10 MG PO DAILY #60 Ref 6 TAB Milk Thistle (Milk Thistle) 140 Mg Cap 140 MG PO BID Mcdonough-3 Fatty Acids (Mcdonough-3 1000 mg) 1 Cap Cap 1000 CAPLET PO DAILY Quetiapine (Seroquel) 50 Mg Tab 50 MG PO DAILY #30 Ref 2 TAB Discontinued Medications: Metformin ER (Metformin ER) 500 Mg Arben 500 MG PO BID With evening meal Blood Sugar Management #120 Ref 6 TAB Jv Granados MD R1 December 15, 2016 12:22
[2016-12-27] MEDS ORDERED: LISI10TA3 PO (16:59)
[2016-12-27] MEDS ORDERED: METF1000 PO (16:59)
== END 2016-11-13 15:16 | disposition home health service (06) | DRG 813 ==
LOC: NEPC 14:19 → NEDA 16:02 → N07A 18:57
PROVIDERS: ADMIT Family Medicine; ATTEND Family Medicine
PROC: 30233K1 Transfusion of Nonautologous Frozen Plasma into Peripheral Vein, Percutaneous Approach (ICD-10-PCS; principal; 2016-11-08)
DX: D68.2 Hereditary deficiency of other clotting factors (principal); N17.9 Acute kidney failure, unspecified; E11.65 Type 2 diabetes mellitus with hyperglycemia; L03.116 Cellulitis of left lower limb; L97.122 Non-pressure chronic ulcer of left thigh with fat layer exposed; I10 Essential (primary) hypertension; B18.2 Chronic viral hepatitis C; F90.0 Attention-deficit hyperactivity disorder, predominantly inattentive type; F81.9 Developmental disorder of scholastic skills, unspecified; F20.9 Schizophrenia, unspecified; E78.00 Pure hypercholesterolemia, unspecified; F32.9 Major depressive disorder, single episode, unspecified; H91.90 Unspecified hearing loss, unspecified ear; F17.210 Nicotine dependence, cigarettes, uncomplicated; E66.9 Obesity, unspecified; M61.9 Calcification and ossification of muscle, unspecified; E86.0 Dehydration; Z68.31 Body mass index [BMI] 31.0-31.9, adult; Z79.899 Other long term (current) drug therapy; Z79.84 Long term (current) use of oral hypoglycemic drugs; Z81.0 Family history of intellectual disabilities; Z91.19 Patient's noncompliance with other medical treatment and regimen
CPT/HCPCS: 36430; 73700; 76882; 80048; 80053; 81001; 82805; 82948; 83036; 83605; 83735; 85025; 85610; 85730; 86850; 86900; 86901; 86927; 87040; 93005; 96372; J1815; J2543; J3370; J7030; J7040; J7050; P9017

== ENCOUNTER 2017-02-10 15:29 | Observation (INO) | payer MEDICARE, OTHER ==
[~2017-02-10] VITALS: Ht 182.9 cm; Wt 120.0 kg
[~2017-02-10 15:29] MED LIST changes: +CLIN150 PO; -FISH1000 PO; +GLUCKIT15; +GLUCTES12; +INSU1MIS15; +LANCETS1 MI1; +LEVEMIR SQ; +METF1000 PO; -METF500T4 PO; +OMEG1000 PO; -[UNRECOGNIZED DRUG - CODE] PO
[2017-02-10] MEDS ORDERED: LEVEMIR SQ (16:56)
[2017-02-10 17:30] VITALS: BP 116/76; PULSE 74; RESP 16; TEMP 97.6; O2SAT 99
--- NOTE | 2017-02-10 17:54 | HHI.DS ---
Discharge Summary Admission Date Feb 10, 2017 at 15:29 Discharge Date: Feb 11, 2017 Admitting Diagnosis L hemarthrosis FV Deficiency (1) Factor V deficiency Procedures FFP infusion Brief History 31 y/o man well known h/o FVDeficiency. Present with L knee pain and swelling. Pt Condition on Discharge: Good Discharge Disposition: Discharge Home Discharge Instructions DIET: Follow Instructions for: As Tolerated, No Restrictions Activities you can perform: Weight Bearing as Chava Additional Activity Instructio: Elevate L leg, ice to L knee. Gertrude Pope MD Feb 10, 2017 17:54
[2017-02-10] MEDS ORDERED: LORazepam 0.5 MG TAB PO PRN (18:00)
[2017-02-10] MEDS ORDERED: GLUCAGON 1 MG/ML VIAL OTHER PRN (18:15)
[2017-02-10] MEDS ORDERED: DEXTROSE 50% IN WATER 50 ML VIAL(D50) IV PRN (18:15)
--- NOTE | 2017-02-10 18:55 | MB ---
cc: NAYA MEYER M.D. DATE OF CONSULTATION 02/10/17 DATE OF 85 ADMISSION DIAGNOSIS 1. Left knee pain. 2. Factor V deficiency. 3. 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 He has some very spontaneous bleeding. He was brought in by his snf care provider with left knee pain. He reports swelling and discomfort. He was started promptly in the clinic with FFP. He completed four doses of FFP. His left knee feels better, although there is still swelling and some limited range of motion. He denies any other bleeding. No fevers, chills or night sweats. He has tolerated the FFP well. He has obesity and other medical problems. Unfortunately, we are unable to administer the rest of his FFP that he needs. His weight is significantly elevated and he needs at least 7-8 units of FFP. He is admitted to the hospital to complete the transfusion of FFP. The rest of his review of systems is negative. Denies any trauma. PAST MEDICAL HISTORY 1. Factor V deficiency. 2. Learning disability. 3. Chronic active hepatitis C 4. Hypertension 5. Diabetes 6. Obesity. 7. Left knee hemarthrosis PAST SURGICAL HISTORY 1. Right knee surgery 2. Left ear surgery. ALLERGIES NO KNOWN DRUG ALLERGIES. SOCIAL HISTORY Father with factor V deficiency. Mother lives in a snf with mental retardation. He smokes half a pack a day. Denies any illicit drug use. Drinks alcohol occasionally. PHYSICAL EXAMINATION VITAL SIGNS: Temperature 97.6, heart rate 74, respiratory rate 16, blood pressure 116/76. GENERAL: Mr. Elias is a well-developed, well-nourished obese man in no acute distress. He is walking better. His pain in his knee is last. HEENT: Pupils are round, reactive to light and accommodation. Oropharynx is clear. NECK: Supple. LUNGS: Clear. CARDIOVASCULAR: Normal rate, rhythm. ABDOMEN: Benign EXTREMITIES: Lower extremity with mild asymmetry left knee and lower distal thigh with mild swelling at the posterior right. No other signs of bleeding. LABORATORY DATA No labs. ASSESSMENT/PLAN Mr. Elias is a 31-year-old man with multiple medical problems. He has Factor V deficiency. He responds to FFP infusion. He has tolerated four units of FFP. We will administer another three. I anticipate that he will be discharged home tomorrow morning or later on this evening. We will proceed with continuing his Amicar as ordered. We will continue to address and assess his left knee. MD TAVO Felix/ /6:01 PM /6:44 PM
[2017-02-10 20:00] VITALS: BP 121/79; PULSE 72; RESP 18; TEMP 98.6; O2SAT 100
[2017-02-10] MEDS ORDERED: ACETAMINOPHEN 325 MG TAB PO PRN (20:00)
[2017-02-10] MEDS ORDERED: SODIUM CHLOR 0.9% 250 ML INJ 250 ML IV ONE (20:00)
[2017-02-10] MEDS ORDERED: diphenhydrAMINE HCL 25 MG CAP PO PRN (20:00)
[2017-02-10] MEDS: AMINOCAPROIC ACID 500 MG TAB PO SCH (22:03)
[2017-02-10] MEDS: INSULIN NovoLIN REGULAR SUPPLEMENTAL SCALE SQ SCH (22:19)
[2017-02-10 22:50] VITALS: BP 121/17; PULSE 58; RESP 16; TEMP 98.9; O2SAT 99
[2017-02-10 23:05] VITALS: BP 123/76; PULSE 66; RESP 16; TEMP 98.1; O2SAT 99
[2017-02-11] MEDS: ACETAMINOPHEN 325 MG TAB PO PRN ×2 (01:41→05:07)
[2017-02-11] MEDS: diphenhydrAMINE HCL 25 MG CAP PO PRN ×2 (01:41→05:08)
[2017-02-11 02:15] VITALS: BP 122/82; PULSE 74; RESP 18; TEMP 96.7; O2SAT 99
[2017-02-11 02:30] VITALS: BP 119/71; PULSE 71; RESP 18; TEMP 97.9; O2SAT 99
[2017-02-11 05:00] VITALS: BP 120/79; PULSE 60; RESP 16; TEMP 96.4; O2SAT 98
[2017-02-11] MEDS: INSULIN NovoLIN REGULAR SUPPLEMENTAL SCALE SQ SCH (05:05)
[2017-02-11] MEDS: AMINOCAPROIC ACID 500 MG TAB PO SCH ×2 (05:06)
[2017-02-11 08:00] VITALS: BP 109/71; PULSE 64; RESP 14; TEMP 97.7; O2SAT 98
--- NOTE | 2017-02-11 09:25 | PD.ONC.PN ---
Subjective Subjective Remarks Afebrile overnight Has better range of motion in left knee Left knee painimproved Objective Data Date Time Temp Pulse Resp B/P Pulse Ox O2 Delivery O2 Flow Rate FiO2 02/11/17 05:00 96.4 60 16 120/79 98 02/11/17 02:30 97.9 71 18 119/71 99 02/11/17 02:15 96.7 74 18 122/82 99 02/10/17 23:05 98.1 66 16 123/76 99 02/10/17 22:50 98.9 58 16 121/17 99 02/10/17 20:00 98.6 72 18 121/79 100 02/10/17 17:30 97.6 74 16 116/76 99 Laboratory Results Laboratory Tests Test 02/10/17 02/10/17 13:33 17:46 Blood Bank Comment Administered Medications Medications (Trade) Dose Ordered Sig/Tri Route PRN Reason Start Time Stop Time Status Last Admin Dose Admin Oxycodone HCl 5 mg 5 mg Q3H PRN PO PAIN SCALE 4 TO 7 02/10/17 18:00 02/10/17 22:12 Sodium Chloride (NS 250 ml Inj) 250 ml @ 15 mls/hr ONCE ONCE IV 02/10/17 20:00 02/11/17 12:39 02/10/17 22:54 Aminocaproic Acid (Amicar) 1,000 mg Q6HR PO 02/10/17 21:00 02/11/17 05:06 Diphenhydramine HCl (Benadryl) 25 mg Q4H PRN PO SEE LABEL COMMENTS 02/11/17 01:45 02/11/17 05:08 Acetaminophen (Tylenol) 650 mg Q4H PRN PO SEE LABEL COMMENTS 02/11/17 01:45 02/11/17 05:07 Objective Remarks GENERAL: Young male resting in bed in no distress SKIN: Warm and dry. HEAD: Normocephalic. EYES: No injection or drainage. NECK: Supple, trachea midline. CARDIOVASCULAR: + S1/S2. RESPIRATORY: Clear anteriorly. Breathing unlabored. GASTROINTESTINAL: Abdomen soft, non-tender, nondistended. EXTREMITIES: L knee warm to touch. Improved range of motion. MUSCULOSKELETAL: Adequate muscle tone. NEUROLOGICAL: No obvious focal deficit. Awake, alert, and oriented x3. Assessment/Plan Problem List: (1) Factor V deficiency Status: Chronic Plan: -- Had some spontaneous bleeding to left knee -- Status post 8 units FFP Assessment 31-year-old male with Factor 5 deficiency admitted for spontaneous bleeding left knee Plan 1. L knee decreased pain and improved range of motion. 2. Okay for discharge to detention 3. Will follow up in clinic in 1 week. Attending Statement The exam, history, and the medical decision-making described in the above note were completed with the assistance of the mid-level provider. I reviewed and agree with the findings presented. I attest that I had a [id number] encounter with the patient on the same day, and personally performed and documented my assessment and findings in the medical record. Peyton Mei Feb 11, 2017 09:25 Primo Aldridge MD Feb 12, 2017 00:57
[2017-02-11 12:00] VITALS: BP 140/63; PULSE 70; RESP 20; TEMP 97.7; O2SAT 99
[2017-02-11 16:00] VITALS: BP 140/63; PULSE 76; RESP 16; TEMP 98; O2SAT 100
[2017-02-16] MEDS ORDERED: METF1000 PO (10:37)
== END 2017-02-11 18:45 | disposition home or self-care (01) ==
LOC: HOCB 15:29
PROVIDERS: ADMIT Internal Medicine Hematology & Oncology; ATTEND Internal Medicine Hematology & Oncology
DX: M25.562 Pain in left knee (principal); M25.062 Hemarthrosis, left knee; D68.2 Hereditary deficiency of other clotting factors; B18.2 Chronic viral hepatitis C; F81.9 Developmental disorder of scholastic skills, unspecified; I10 Essential (primary) hypertension; E11.9 Type 2 diabetes mellitus without complications; E66.9 Obesity, unspecified; F17.200 Nicotine dependence, unspecified, uncomplicated
CPT/HCPCS: 36430; 82948; 86927; G0378; J7050; P9017

== ENCOUNTER → 2017-03-13 | Outpatient (CLI) | payer MEDICARE, OTHER ==
[~2017-03-13] MED LIST changes: -CLIN150 PO
[2017-03-13 12:12] LABS: ANION GAP 6 MEQ/L (5-15); BICARBONATE 27.4 MEQ/L (21.0-32.0); BLOOD UREA NITROGEN 10 MG/DL (7-18); CHLORIDE 106 MEQ/L (98-107); GLOMERULAR FILTRATION RATE 84 ML/MIN (>89); POTASSIUM 3.7 MEQ/L (3.5-5.1); SODIUM (NA) 139 MEQ/L (136-145)
[2017-03-13 12:21] LABS: HDL CHOLESTEROL 58.6 MG/DL (40.0-60.0); LDL CHOLESTEROL 48 MG/DL (0-99)
[2017-03-13 12:23] LABS: MICRO ALBUMIN RANDOM URINE RAW 10.6 MG/L (0.0-30.0)
[2017-03-13 16:47] LABS: HEMOGLOBIN A1a 1.1 %; HEMOGLOBIN A1b 1.5 %; HEMOGLOBIN LA1C 1.8 %; HEMOGLOBIN P3 3.3 %
== END ==
LOC: CLAB 11:01
PROVIDERS: ATTEND Family Medicine
DX: E11.9 Type 2 diabetes mellitus without complications (principal)
CPT/HCPCS: 36415; 80048; 80061; 82043; 83036

== ENCOUNTER 2018-01-04 12:48 | Observation (INO) | payer MEDICARE, OTHER ==
[~2018-01-04] VITALS: Ht 180.3 cm; Wt 120.0 kg
[2018-01-04] VITALS (7 sets, daily range): BP systolic 130–144; BP diastolic 70–95; PULSE 50–70; RESP 16–18; TEMP 98.3–98.8; O2SAT 98–99
--- NOTE | 2018-01-04 16:26 | PD ---
HPI Chief Complaint: Musculoskeletal Complaint Time Seen by Provider: 16:09 Travel History International Travel<30 days: No Contact w/Intl Traveler<30days: No Traveled to known affect area: No History of Present Illness HPI Patient comes in complaining of right knee swelling and pain that has been ongoing since this morning. Patient states that this is very similar to his previous joint bleeding episodes because he has a factor V deficiency. Patient denies any trauma mis-stepping down or up stairs. Patient states that because of his insurance he can no longer afford the prophylaxis Amicar. And he is followed up by oncologist Dr. Pope. Patient describes the pain as localized to his right knee, throbbing, nonradiating, no swelling to his calf or thigh, and rates it about a 5 out of 10 worsen with ambulation No nondrug allergies Past medical history significant for hypercholesterolemia, hypertension, diabetes and chronic insulin, patient uses a word hemophilia, also states that he has hemophilia factor V deficiency. ADHD, mild mental retardation, hepatitis C chronic carrier, PFSH Past Medical History ADD: Yes ADHD: Yes Arthritis: No Asthma: No Autoimmune Disease: No Blood Disorders: Yes (HEMOPHILIA FACTER V) Anxiety: No Depression: No Heart Rhythm Problems: No Cancer: No Cardiovascular Problems: No High Cholesterol: Yes Chemotherapy: No Chest Pain: No Congestive Heart Failure: No COPD: No Cerebrovascular Accident: No Diabetes: Yes Diminished Hearing: Yes Endocrine: Yes Gastrointestinal Disorders: Yes GERD: No Glaucoma: No Genitourinary: No Headaches: No Hepatitis: Yes (HEP C) Hiatal Hernia: No Hypertension: No Immune Disorder: No Kidney Stones: No Musculoskeletal: No Neurologic: No Psychiatric: Yes Reproductive: No Respiratory: No Immunizations Current: No Migraines: No Myocardial Infarction: No Radiation Therapy: No Renal Failure: No Seizures: No Sickle Cell Disease: No Sleep Apnea: No Thyroid Disease: No Ulcer: No PNEUMOCCOCAL Vaccine (Year): 3 ?: Not Past Surgical History Abdominal Surgery: No AICD: No Appendectomy: No Arteriovenous Shunt: No Cardiac Surgery: No Cholecystectomy: No Ear Surgery: Yes (BILAT) Endocrine Surgery: No Eye Surgery: No Genitourinary Surgery: No Gynecologic Surgery: No Insulin Pump: No Joint Replacement: No Oral Surgery: No Pacemaker: No Thoracic Surgery: No Other Surgery: Yes (KELLOID REMOVAL BOTH EAR 10 YEARS AGO) Social History Alcohol Use: Yes (occassionally ) Tobacco Use: Yes (< 1/2 PPD ) Substance Use: No Allergies-Medications (Allergen,Severity, Reaction): Coded Allergies: No Known Allergies (Verified Allergy, Unknown, 01/04/18) Reported Meds & Prescriptions Reported Meds & Active Scripts Active Metformin (Metformin HCl) 1,000 Mg Tab 1,000 Mg PO BIDPC With meals Adderall (Amphetamine-Dextroamphetamine) 30 Mg Tab 30 Mg PO DAILY Avoid late evening doses. Space doses at least 4 to 6 hours if more than once/day dosing. Seroquel (Quetiapine Fumarate) 50 Mg Tab 50 Mg PO DAILY Lisinopril 10 Mg Tab 10 Mg PO DAILY Glucocom Test Strips (Blood Glucose Test Strips) 1 Karie Karie 1 Ea .ROUTE DIRECTED Lancets 1 Mis Mis 1 Ea .ROUTE DIRECTED Insulin Syringe/U-100/31G X 5/16" 1 ml 1 Mis Mis 1 Ea .ROUTE DIRECTED Glucocom Blood Glucose Mo W/Device (Device) 1 Kit Kit 1 Kit .ROUTE DIRECTED Reported Levemir Inj (Insulin Detemir) 1,000 unit/ 10 ML Vial 10 Units SQ AC BREAKFAST Do not mix with any other Insulin. Atkinson-3 1000 mg (Atkinson-3 Fatty Acids) 1 Cap Cap 1,000 Caplet PO DAILY Review of Systems General / Constitutional: No: Fever Eyes: No: Visual changes HENT: No: Headaches Cardiovascular: No: Chest Pain or Discomfort Respiratory: No: Shortness of Breath Gastrointestinal: No: Abdominal Pain Genitourinary: No: Dysuria Musculoskeletal: Positive: Arthralgias, Pain (Right knee pain and swelling) Skin: No Rash Neurologic: No: Weakness Psychiatric: No: Depression Endocrine: No: Polydipsia Hematologic/Lymphatic: No: Easy Bruising Physical Exam Narrative GENERAL: Specifically no cellulitic changes, no lymphangitic changes noted either. Calf diameter is not enlarged and also negative Homans sign SKIN: Warm and dry. HEAD: Atraumatic. Normocephalic. EYES: Pupils equal and round. No scleral icterus. No injection or drainage. ENT: No nasal bleeding or discharge. Mucous membranes pink and moist. NECK: Trachea midline. No JVD. CARDIOVASCULAR: Regular rate and rhythm. RESPIRATORY: No accessory muscle use. Clear to auscultation. Breath sounds equal bilaterally. GASTROINTESTINAL: Abdomen soft, non-tender, nondistended. Hepatic and splenic margins not palpable. MUSCULOSKELETAL: Extremities without clubbing, cyanosis. Patient has obvious right knee swelling that is out of proportion when compared to his left knee. Patient has some pain with range of motion of his knee right knee. NEUROLOGICAL: Awake and alert. No obvious cranial nerve deficits. Motor grossly within normal limits. Five out of 5 muscle strength in the arms and legs. Normal speech. PSYCHIATRIC: Appropriate mood and affect; insight and judgment normal. Data Data Last Documented VS Orders Orders Fresh Frozen Plasma (Ffp) (01/04/18 16:26) Blood Product Administration (01/04/18 16:26) Sodium Chlor 0.9% 250 Ml Inj (Ns 250 Ml (01/04/18 16:30) Ct Knee W/O Contrast (01/04/18 ) Complete Blood Count With Diff (01/04/18 16:28) Basic Metabolic Panel (Bmp) (01/04/18 16:28) Prothrombin Time / Inr (Pt) (01/04/18 16:28) Act Partial Throm Time (Ptt) (01/04/18 16:28) Potassium Chloride Eff (K-Lyte Cl Eff) (01/04/18 17:30) Admit Order (Ed Use Only) (01/04/18 18:03) Labs Laboratory Tests Test 01/04/18 16:43 White Blood Count 9.3 TH/MM3 Red Blood Count 5.85 MIL/MM3 Hemoglobin 16.4 GM/DL Hematocrit 49.3 % Mean Corpuscular Volume 84.2 FL Mean Corpuscular Hemoglobin 28.0 PG Mean Corpuscular Hemoglobin Concent 33.3 % Red Cell Distribution Width 14.1 % Platelet Count 189 TH/MM3 Mean Platelet Volume 10.0 FL Neutrophils (%) (Auto) 64.7 % Lymphocytes (%) (Auto) 27.2 % Monocytes (%) (Auto) 6.5 % Eosinophils (%) (Auto) 0.8 % Basophils (%) (Auto) 0.8 % Neutrophils # (Auto) 6.0 TH/MM3 Lymphocytes # (Auto) 2.5 TH/MM3 Monocytes # (Auto) 0.6 TH/MM3 Eosinophils # (Auto) 0.1 TH/MM3 Basophils # (Auto) 0.1 TH/MM3 CBC Comment DIFF FINAL Differential Comment Prothrombin Time 57.9 SEC Prothromb Time International Ratio 5.8 RATIO Activated Partial Thromboplast Time 125.6 SEC Blood Urea Nitrogen 9 MG/DL Creatinine 1.11 MG/DL Random Glucose 80 MG/DL Calcium Level 8.8 MG/DL Sodium Level 141 MEQ/L Potassium Level 3.3 MEQ/L Chloride Level 105 MEQ/L Carbon Dioxide Level 27.0 MEQ/L Anion Gap 9 MEQ/L Estimat Glomerular Filtration Rate 93 ML/MIN MDM Medical Decision Making Medical Screen Exam Complete: Yes Emergency Medical Condition: Yes Medical Record Reviewed: Yes Differential Diagnosis Hemarthrosis versus fracture versus dislocation Narrative Course Patient is signed out to incoming physician pending CT result as well as reevaluation. Patient will be empirically treated for possible right knee hemarthrosis, due to his factor V deficiency, patient will be given 2 FFP units IV. Diagnosis Primary Impression: Factor V deficiency Additional Impression: Presumed Right knee hemarthrosis Scripts Aminocaproic Acid (Amicar) 500 Mg Tab 2000 MG PO Q6HR for prevent bleeding for 30 Days, TAB Prov: Lisandro Hernandez MD 01/06/18 David Mcpherson MD Jan 04, 2018 16:26
[2018-01-04] MEDS ORDERED: SODIUM CHLOR 0.9% 250 ML INJ 250 ML IV ONE (16:30)
[2018-01-04 17:03] LABS: BASOPHIL # 0.1 TH/MM3 (0-0.2); BASOPHIL % 0.8 % (0.0-2.0); EOSINOPHIL # 0.1 TH/MM3 (0-0.4); EOSINOPHIL % 0.8 % (0.0-4.0); HEMATOCRIT 49.3 % (39.0-51.0); HEMOGLOBIN 16.4 GM/DL (13.0-17.0); LYMPH % 27.2 % (9.0-44.0); LYMPHOCYTE # 2.5 TH/MM3 (1.0-4.8); MEAN CELL VOLUME 84.2 FL (80.0-100.0); MEAN CORPUSCULAR HGB CONC 33.3 % (32.0-36.0); MONO % 6.5 % (0.0-8.0); MONOCYTE # 0.6 TH/MM3 (0-0.9); NEUT % 64.7 % (16.0-70.0); PLATELET COUNT 189 TH/MM3 (150-450); RED BLOOD COUNT 5.85 MIL/MM3 (4.50-5.90); RED CELL DISTRIBUTION WIDTH 14.1 % (11.6-17.2); WHITE BLOOD COUNT 9.3 TH/MM3 (4.0-11.0)
[2018-01-04 17:25] LABS: CALCIUM 8.8 MG/DL (8.5-10.1); CREATININE 1.11 MG/DL (0.60-1.30)
[2018-01-04] MEDS ORDERED: POTASSIUM CHLORIDE 25 MEQ EFFERVESCENT TAB PO ONE (17:30)
[2018-01-04 17:31] LABS: INTERNATIONAL NORMALIZED RATIO 5.8 RATIO; PROTHROMBIN TIME - PATIENT 57.9 SEC (9.8-11.6)
--- NOTE | 2018-01-04 17:44 | RADRPT ---
EXAM DATE: 01/04/2018 5:36 PM EDT AGE/SEX: 32 years / Male INDICATIONS: Right knee pain and swelling. CLINICAL DATA: This is the patient's initial encounter. Patient reports that signs and symptoms have been present for 1 day and indicates a pain score of 10/10. MEDICAL/SURGICAL HISTORY: Hypertension. Diabetes. Hepatitis C. Hemophilia factor 5 None. RADIATION DOSE: 7.92 CTDI (mGy) COMPARISON: No prior exams available for comparison. TECHNIQUE: Multiple contiguous axial images were acquired using a multirow detector CT scanner witho ut contrast. Multiplanar reconstruction was performed in the sagittal and coronal planes. Using aut omated exposure control and adjustment of the mA and/or kV according to patient size, radiation dose was kept as low as reasonably achievable to obtain optimal diagnostic quality images. FINDINGS: Small joint effusion is seen. There is a wire. A radiopaque foreign body in the soft tissues medially at the level of the medial joint measures almost 2 cm in maximum length. There is a small osteochond ral defect in the anterior portion of the patellar notch measures almost 7 mm in size and a small nid us is identified at this site. A displaced fragment is not seen. CONCLUSION: 1. Wire shape radiopaque foreign body in the medial soft tissues of the patient's knee. 2. Small osteochondral defect of the anterior patellar notch. 3. Joint effusion. Electronically signed by: Nguyen Bazzi MD 01/04/2018 5:42 PM EDT
--- NOTE | 2018-01-04 18:05 | PD ---
Physical Exam Date Seen by Provider: Jan 04, 2018 Time Seen by Provider: 18:05 Narrative 32-year-old male came to the emergency room with history of right knee swelling. 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 Patient is supposed to be on Amicar but cannot afford it. He sees tool procurement coordinator Dr. Pope. He has had hemarthrosis in the past and he recognized the symptoms this time. Came to the emergency room and was seen by the previous ER physician. Please refer to his history and physical for further details. Signout was to follow-up on labs and CT. Patient's INR, PT and PTT are all elevated significantly and CT scan shows joint effusion. Incidentally there is also a metal foreign body noticed in the subcutaneous tissue of the knee outside the joint. I went and examined this and the skin is well healed over it but the foreign body can be palpated on the posterior medial aspect of the knee. It is rather superficial. Patient does not recall what happened. I discussed the case with Dr. Mora who is on-call tool procurement coordinator. As per him it was okay to give 2 units of FFP and then watch the knee if the swelling is worsening. Also repeat the INR. I discussed the case with the hospitalist was accepted the patient. Dr. Anderson is actually here to see the patient currently Data Data Last Documented VS Orders Orders Fresh Frozen Plasma (Ffp) (01/04/18 16:26) Blood Product Administration (01/04/18 16:26) Sodium Chlor 0.9% 250 Ml Inj (Ns 250 Ml (01/04/18 16:30) Ct Knee W/O Contrast (01/04/18 ) Complete Blood Count With Diff (01/04/18 16:28) Basic Metabolic Panel (Bmp) (01/04/18 16:28) Prothrombin Time / Inr (Pt) (01/04/18 16:28) Act Partial Throm Time (Ptt) (01/04/18 16:28) Potassium Chloride Eff (K-Lyte Cl Eff) (01/04/18 17:30) Admit Order (Ed Use Only) (01/04/18 18:03) Labs Laboratory Tests Test 01/04/18 16:43 White Blood Count 9.3 TH/MM3 Red Blood Count 5.85 MIL/MM3 Hemoglobin 16.4 GM/DL Hematocrit 49.3 % Mean Corpuscular Volume 84.2 FL Mean Corpuscular Hemoglobin 28.0 PG Mean Corpuscular Hemoglobin Concent 33.3 % Red Cell Distribution Width 14.1 % Platelet Count 189 TH/MM3 Mean Platelet Volume 10.0 FL Neutrophils (%) (Auto) 64.7 % Lymphocytes (%) (Auto) 27.2 % Monocytes (%) (Auto) 6.5 % Eosinophils (%) (Auto) 0.8 % Basophils (%) (Auto) 0.8 % Neutrophils # (Auto) 6.0 TH/MM3 Lymphocytes # (Auto) 2.5 TH/MM3 Monocytes # (Auto) 0.6 TH/MM3 Eosinophils # (Auto) 0.1 TH/MM3 Basophils # (Auto) 0.1 TH/MM3 CBC Comment DIFF FINAL Differential Comment Prothrombin Time 57.9 SEC Prothromb Time International Ratio 5.8 RATIO Activated Partial Thromboplast Time 125.6 SEC Blood Urea Nitrogen 9 MG/DL Creatinine 1.11 MG/DL Random Glucose 80 MG/DL Calcium Level 8.8 MG/DL Sodium Level 141 MEQ/L Potassium Level 3.3 MEQ/L Chloride Level 105 MEQ/L Carbon Dioxide Level 27.0 MEQ/L Anion Gap 9 MEQ/L Estimat Glomerular Filtration Rate 93 ML/MIN MDM Supervised Visit with LESLEY: No Physician Communication Physician Communication Dr. Anderson Diagnosis Primary Impression: Factor V deficiency Additional Impressions: Presumed Right knee hemarthrosis Elevated INR Admitting Information Admitting Physician Requests: Observation Scripts Aminocaproic Acid (Amicar) 500 Mg Tab 2000 MG PO Q6HR for prevent bleeding for 30 Days, TAB Prov: Lisandro Hernandez MD 01/06/18 Ladonna Mishra MD Jan 04, 2018 18:05
--- NOTE | 2018-01-04 18:41 | PD.CONS ---
History of Present Illness Service Hematology/oncology Consult Requested By Emergency department physician. Reason for Consult Patient with diagnosis of factor V deficiency presenting with pain and swelling in the right knee with symptoms concerning for intra-articular bleed. Primary Care Physician No Primary Care Physician Diagnoses: History of Present Illness Chief Complaint: Pain swelling and decreased range of motion of the right knee since earlier today. History of Presenting Illness: Mr. Elias is a 32-year-old man with a rare diagnosis of factor V deficiency, he is under the care of my associate Dr. Pope. The patient reports having had occasional bleeding within his right knee which oftentimes is unprovoked. He has in the past been on Amicar tablets which he reports helps control the bleeding and also decrease the incidence of bleeding. He has not been on Amicar recently because he was unable to have that medication filled. The patient reports being transfused FFP when he does bleed in the joints and in the past has received FFP in the hospital as well as in the outpatient oncology clinic. Mr. Elias reports noting pain and swelling of his right knee associate with decreased range of motion earlier today. He denies injury to the knee or performing more than the usual amount of strenuous activities. 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 After presenting to the emergency department blood work was performed and he was found to have an elevated INR of 5.5 associated prolonged PT and PTT. CT scan of the right knee indicated a small amount of intra-articular fluid and interestingly a metal wire in the subcutaneous tissue along the medial posterior aspect of the knee. The patient has no knowledge of how that metal wire-like object may have been inserted in the subcutaneous tissue. Review of Systems Constitutional: DENIES: Diaphoretic episodes, Fatigue, Fever, Weight gain, Weight loss, Chills, Dizziness, Change in appetite, Night Sweats Endocrine: DENIES: Heat/cold intolerance, Polydipsia, Polyuria, Polyphagia Eyes: DENIES: Blurred vision, Diplopia, Eye inflammation, Eye pain, Vision loss , Photosensitivity, Double Vision Ears, nose, mouth, throat: DENIES: Tinnitus, Hearing loss, Vertigo, Nasal discharge, Oral lesions, Throat pain, Hoarseness, Ear Pain, Running Nose, Epistaxis, Sinus Pain, Toothache, Odynophagia Respiratory: DENIES: Apneas, Cough, Snoring, Wheezing, Hemoptysis, Sputum production, Shortness of breath Cardiovascular: DENIES: Chest pain, Palpitations, Syncope, Dyspnea on Exertion , PND, Lower Extremity Edema, Orthopnea, Claudication Gastrointestinal: DENIES: Abdominal pain, Black stools, Bloody stools, Constipation, Diarrhea, Nausea, Vomiting, Difficulty Swallowing, Anorexia Genitourinary: DENIES: Sexual dysfunction, Urinary frequency, Urinary incontinence, Urgency, Hematuria, Dysuria, Nocturia, Penile Discharge, Testicular Pain, Testicular Swelling Musculoskeletal: COMPLAINS OF: Joint pain (Right knee), Stiffness (Right knee) , Joint Swelling (Right knee), DENIES: Muscle aches, Back pain, Neck pain Integumentary: DENIES: Abnormal pigmentation, Nail changes, Pruritus, Rash Hematologic/lymphatic: DENIES: Bruising, Lymphadenopathy Immunologic/allergic: DENIES: Eczema, Urticaria Neurologic: DENIES: Abnormal gait, Headache, Localized weakness, Paresthesias, Seizures, Speech Problems, Tremor, Poor Balance Psychiatric: DENIES: Anxiety, Confusion, Mood changes, Depression, Hallucinations, Agitation, Suicidal Ideation, Homicidal Ideation, Delusions Except as stated in HPI: all other systems reviewed are Neg Past Family Social History Allergies: Coded Allergies: No Known Allergies (Verified Adverse Reaction, Unknown, 01/04/18) Past Medical History Factor V deficiency. 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 No known oncologic diagnoses in the family. Social History Lives at home with a roommate, he works in hotel maintenance. He reports smoking, He has no children of his own. Physical Exam Vital Signs Vital Signs Date Time Temp Pulse Resp B/P (MAP) Pulse Ox O2 Delivery O2 Flow Rate FiO2 01/04/18 17:57 98.3 51 18 139/91 99 01/04/18 17:42 98.3 51 18 130/79 98 01/04/18 13:12 98.8 70 18 144/85 (104) 99 Physical Exam GENERAL: Young man, sitting up in bed this is a well-nourished, well-developed patient, in no apparent distress. SKIN: No rashes, ecchymoses or lesions. Cool and dry. HEAD: Atraumatic. Normocephalic. No temporal or scalp tenderness. EYES: Pupils equal round and reactive. Extraocular motions intact. No scleral icterus. No injection or drainage. ENT: Nose without bleeding, purulent drainage or septal hematoma. Throat without erythema, tonsillar hypertrophy or exudate. Uvula midline. Airway patent. NECK: Trachea midline. No JVD or lymphadenopathy. Supple, nontender, no meningeal signs. CARDIOVASCULAR: Regular rate and rhythm without murmurs, gallops, or rubs. RESPIRATORY: Clear to auscultation. Breath sounds equal bilaterally. No wheezes , rales, or rhonchi. GASTROINTESTINAL: Abdomen soft, non-tender, nondistended. No hepato-splenomegaly , or palpable masses. No guarding. MUSCULOSKELETAL: Right knee is elevated, some tenderness, no obvious swelling appreciated on external examination, decreased range of motion of the right knee. Extremities without clubbing, cyanosis, or edema. No joint tenderness, effusion, or edema noted. No calf tenderness. Negative Homans sign bilaterally. NEUROLOGICAL: Awake and alert. Cranial nerves II through XII intact. Motor and sensory grossly within normal limits. Five out of 5 muscle strength in all muscle groups. Normal speech. Laboratory Laboratory Tests Test 01/04/18 16:43 White Blood Count 9.3 Red Blood Count 5.85 Hemoglobin 16.4 Hematocrit 49.3 Mean Corpuscular Volume 84.2 Mean Corpuscular Hemoglobin 28.0 Mean Corpuscular Hemoglobin Concent 33.3 Red Cell Distribution Width 14.1 Platelet Count 189 Mean Platelet Volume 10.0 Neutrophils (%) (Auto) 64.7 Lymphocytes (%) (Auto) 27.2 Monocytes (%) (Auto) 6.5 Eosinophils (%) (Auto) 0.8 Basophils (%) (Auto) 0.8 Neutrophils # (Auto) 6.0 Lymphocytes # (Auto) 2.5 Monocytes # (Auto) 0.6 Eosinophils # (Auto) 0.1 Basophils # (Auto) 0.1 CBC Comment DIFF FINAL Differential Comment Prothrombin Time 57.9 Prothromb Time International Ratio 5.8 Activated Partial Thromboplast Time 125.6 Blood Urea Nitrogen 9 Creatinine 1.11 Random Glucose 80 Calcium Level 8.8 Sodium Level 141 Potassium Level 3.3 Chloride Level 105 Carbon Dioxide Level 27.0 Anion Gap 9 Estimat Glomerular Filtration Rate 93 Result Diagram: 01/04/18 1643 01/04/[address] scan of the right knee dated 01/04/2018: Conclusion: 1. Small osteochondral defect in the anterior patellar notch. 2. Joint effusion. 3. Wire shaped radiopaque foreign body in the medial soft tissues of the patient's knee is noted. Assessment and Plan Assessment and Plan 32-year-old man with a history of factor V deficiency which is a rare inherited coagulation disorder and hepatitis C presents to the hospital with a less than 1 day history of pain swelling and decreased range of motion in his right knee. Prior to this he has had spontaneous bleeding involving the right knee and right posterior thigh, Left shoulder, right groin. He is treated with fresh frozen plasma and Amicar when he does bleed because there are no synthetic factor V replacement products available given the rarity of this disorder. He comes in today with symptoms of a bleed within the right knee associated with symptoms described above. He has been initiated on fresh frozen plasma infusion and is currently receiving his first unit. Plan: 1. Factor V deficiency: Transfuse at least 2 units tonight, repeat PT/INR 2 hours after the second unit. Initiate Amicar at a dose of 2 g p.o. every 4 hours. Monitor clinically, should his symptoms of right knee pain improve he may be discharged home. Should his symptoms not improve or if his PT/INR remains elevated I would advise transfusing 2 additional units of FFP. Hematology/Oncology service to follow along with you. Discussed Condition With Emergency department physician. Avila Anderson MD Jan 04, 2018 18:41
[2018-01-04] MEDS ORDERED: NALOXONE HCL 0.4 MG/ML AMP IV PUSH PRN (19:45)
[2018-01-04] MEDS ORDERED: SODIUM CHLORIDE 0.9% FLUSH 10 ML FLUSH IV FLUSH PRN (19:45)
[2018-01-04] MEDS ORDERED: GLUCAGON 1 MG/ML VIAL OTHER PRN (21:00)
[2018-01-04] MEDS ORDERED: DEXTROSE 50% IN WATER 50 ML VIAL(D50) IV PUSH PRN (21:00)
[2018-01-04] MEDS: INSULIN ASPART SUPPLEMENTAL SCALE SQ SCH (21:11)
[2018-01-04] MEDS: SODIUM CHLORIDE 0.9% FLUSH 10 ML FLUSH IV FLUSH SCH (21:11)
--- NOTE | 2018-01-04 21:41 | HHI.HP ---
[facility] No Primary Care Physician Admission Diagnosis Hemearthrosis, Factor V deficiency, Elevated INR Diagnoses: Chief Complaint: Right knee pain Travel History International Travel<30 Days: No Contact w/Intl Traveler <30 Da: No Traveled to Known Affected Are: No History of Present Illness 32-year-old male with a history of factor V deficiency currently under the care of Dr. Pope, hypertension, diabetes, hep C, ADHD presented to the ED with complaints of right knee pain. Patient reports that he has had occasional bleeding in his right knee before that is unprovoked. In the past he has been on Amicar tablets to control the bleeding. He denies any associated symptoms, states his pain is a aching, 5/10 better with pain medicine worse with walking, no radiation. He denies any trauma to that knee recently. Upon arrival to the ER patient was found to have an INR of 5.5 with a prolonged PT and PTT. Denies any shortness of breath, chest pain, dizziness or headaches. Review of Systems Except as stated in HPI: all other systems reviewed are Neg Past Family Social History Past Medical History Factor V deficiency Hepatitis C Right knee are through the due to current bleeding ADHD Hypertension Diabetes Past Surgical History Otoplasty Reported Medications Reported Meds & Active Scripts Active Metformin (Metformin HCl) 1,000 Mg Tab 1,000 Mg PO BIDPC With meals Adderall (Amphetamine-Dextroamphetamine) 30 Mg Tab 30 Mg PO DAILY Avoid late evening doses. Space doses at least 4 to 6 hours if more than once/day dosing. Seroquel (Quetiapine Fumarate) 50 Mg Tab 50 Mg PO DAILY Lisinopril 10 Mg Tab 10 Mg PO DAILY Glucocom Test Strips (Blood Glucose Test Strips) 1 Karie Karie 1 Ea .ROUTE DIRECTED Lancets 1 Mis Mis 1 Ea .ROUTE DIRECTED Insulin Syringe/U-100/31G X 5/16" 1 ml 1 Mis Mis 1 Ea .ROUTE DIRECTED Glucocom Blood Glucose Mo W/Device (Device) 1 Kit Kit 1 Kit .ROUTE DIRECTED Reported Levemir Inj (Insulin Detemir) 1,000 unit/ 10 ML Vial 10 Units SQ AC BREAKFAST Do not mix with any other Insulin. Milk Thistle 140 Mg Cap 140 Mg PO BID Campus-3 1000 mg (Campus-3 Fatty Acids) 1 Cap Cap 1,000 Caplet PO DAILY Allergies: Coded Allergies: No Known Allergies (Verified Allergy, Unknown, 01/04/18) Active Ordered Medications Current Medications Medications (Trade) Dose Ordered Sig/Tri Route Start Time Stop Time Status Last Admin Sodium Chloride 250 ml @ 15 mls/hr ONCE ONCE IV 01/04/18 16:30 01/05/18 09:09 01/04/18 17:48 (NS Flush) 2 ml UNSCH PRN IV FLUSH 01/04/18 19:45 (NS Flush) 2 ml BID IV FLUSH 01/04/18 21:00 (Tylenol) 650 mg Q4H PRN PO 01/04/18 19:45 (Narcan Inj) 0.4 mg UNSCH PRN IV PUSH 01/04/18 19:45 (Amicar) 2,000 mg Q4HR PO 01/05/18 00:00 01/04/18 23:38 (D50w (Vial) Inj) 50 ml UNSCH PRN IV PUSH 01/04/18 21:00 (Glucagon Inj) 1 mg UNSCH PRN OTHER 01/04/18 21:00 (NovoLOG SUPPLEMENTAL SCALE) 1 ACHS SLIDING SCALE SQ 01/04/18 21:00 (Adderall) 30 mg DAILY PO 01/05/18 09:00 (Prinivil) 10 mg DAILY PO 01/05/18 09:00 (Glucophage) 1,000 mg BIDPC PO 01/05/18 09:00 (SEROquel) 50 mg DAILY PO 01/05/18 09:00 Family History Patient denies any family history Social History Alcohol use: Denies Tobacco use: 1/2 PPD Physical Exam Vital Signs Vital Signs Date Time Temp Pulse Resp B/P (MAP) Pulse Ox O2 Delivery O2 Flow Rate FiO2 01/04/18 19:42 98.3 55 18 134/81 99 01/04/18 19:27 98.4 53 18 137/95 99 01/04/18 19:15 98.4 50 18 133/84 99 01/04/18 17:57 98.3 51 18 139/91 99 01/04/18 17:42 98.3 51 18 130/79 98 01/04/18 13:12 98.8 70 18 144/85 (104) 99 Physical Exam GENERAL: This is a well-nourished, well-developed patient, in no apparent distress. SKIN: No rashes, ecchymoses or lesions. Cool and dry. HEAD: Atraumatic. Normocephalic. No temporal or scalp tenderness. EYES: Pupils equal round and reactive. Extraocular motions intact. CARDIOVASCULAR: Regular rate and rhythm without murmurs, gallops, or rubs. RESPIRATORY: Clear to auscultation. Breath sounds equal bilaterally. No wheezes , rales, or rhonchi. GASTROINTESTINAL: Abdomen soft, non-tender, nondistended. No hepato-splenomegaly , or palpable masses. MUSCULOSKELETAL: Right knee tenderness decreased range of motion NEUROLOGICAL: Awake and alert. Normal speech. Laboratory Laboratory Tests Test 01/04/18 16:43 White Blood Count 9.3 Red Blood Count 5.85 Hemoglobin 16.4 Hematocrit 49.3 Mean Corpuscular Volume 84.2 Mean Corpuscular Hemoglobin 28.0 Mean Corpuscular Hemoglobin Concent 33.3 Red Cell Distribution Width 14.1 Platelet Count 189 Mean Platelet Volume 10.0 Neutrophils (%) (Auto) 64.7 Lymphocytes (%) (Auto) 27.2 Monocytes (%) (Auto) 6.5 Eosinophils (%) (Auto) 0.8 Basophils (%) (Auto) 0.8 Neutrophils # (Auto) 6.0 Lymphocytes # (Auto) 2.5 Monocytes # (Auto) 0.6 Eosinophils # (Auto) 0.1 Basophils # (Auto) 0.1 CBC Comment DIFF FINAL Differential Comment Prothrombin Time 57.9 Prothromb Time International Ratio 5.8 Activated Partial Thromboplast Time 125.6 Blood Urea Nitrogen 9 Creatinine 1.11 Random Glucose 80 Calcium Level 8.8 Sodium Level 141 Potassium Level 3.3 Chloride Level 105 Carbon Dioxide Level 27.0 Anion Gap 9 Estimat Glomerular Filtration Rate 93 Result Diagram: 01/04/18 1643 01/04/18 1643 Imaging Last Impressions Lower Extremity CT 01/04/18 0000 Signed Impressions: CONCLUSION: 1. Wire shape radiopaque foreign body in the medial soft tissues of the patien t's knee. 2. Small osteochondral defect of the anterior patellar notch. 3. Joint effusion. Caprini VTE Risk Assessment Caprini VTE Risk Assessment: No/Low Risk (score <= 1) Caprini Risk Assessment Model Point Value = 1 Point Value = 2 Point Value = 3 Point Value = 5 Age 41-60 Minor surgery BMI > 25 kg/m2 Swollen legs Varicose veins or History of unexplained or recurrent spontaneous Oral contraceptives or hormone replacement Sepsis (< 1 month) Serious lung disease, including pneumonia (< 1 month) Abnormal pulmonary function Acute myocardial infarction Congestive heart failure (< 1 month) History of inflammatory bowel disease Medical patient at bed rest Age 61-74 Arthroscopic surgery Major open surgery (> 45 min) Laparoscopic surgery (> 45 min) Malignancy Confined to bed (> 72 hours) Immobilizing plaster cast Central venous access Age >= 75 History of VTE Family history of VTE Factor V Leiden Prothrombin [id number] Lupus anticoagulant Anticardiolipin antibodies Elevated serum homocysteine Heparin-induced thrombocytopenia Other congenital or acquired thrombophilia Stroke (< 1 month) Elective arthroplasty Hip, pelvis, or leg fracture Acute spinal cord injury (< 1 month) Prophylaxis Regimen Total Risk Factor Score Risk Level Prophylaxis Regimen 0-1 Low Early ambulation 2 Moderate Order ONE of the following: *Sequential Compression Device (SCD) *Heparin 5000 units SQ BID 3-4 Higher Order ONE of the following medications: *Heparin 5000 units SQ TID *Enoxaparin/Lovenox 40 mg SQ daily (WT < 150 kg, CrCl > 30 mL/min) *Enoxaparin/Lovenox 30 mg SQ daily (WT < 150 kg, CrCl > 10-29 mL/min) *Enoxaparin/Lovenox 30 mg SQ BID (WT < 150 kg, CrCl > 30 mL/min) AND/OR *Sequential Compression Device (SCD) 5 or more Highest Order ONE of the following medications: *Heparin 5000 units SQ TID (Preferred with Epidurals) *Enoxaparin/Lovenox 40 mg SQ daily (WT < 150 kg, CrCl > 30 mL/min) *Enoxaparin/Lovenox 30 mg SQ daily (WT < 150 kg, CrCl > 10-29 mL/min) *Enoxaparin/Lovenox 30 mg SQ BID (WT < 150 kg, CrCl > 30 mL/min) AND *Sequential Compression Device (SCD) Assessment and Plan Assessment and Plan 32-year-old male with a history of factor V deficiency currently under the care of Dr. Pope, hypertension, diabetes, hep C, ADHD presented to the ED with complaints of right knee pain. Joint effusion, right knee, due to bleeding Lower extremity CT reviewed and shows a wire shape foreign body in the soft tissue of the patient's knee, joint effusion -Cont with recommendations per hematology -Consult ortho if effusion worsens Supratherapeutic INR, INR 5.8, APTT 25.6, in a patient with factor V deficiency -Consult hematology recommends transfuse 2 units of plasma, repeat PT/INR 2 hours after, and start Donaldo 2 g p.o. every 4 hours. -Trend INR Hypertension, chronic -Resume home medications -Monitor vitals Diabetes, chronic -Resume home medications -Accu-Cheks and sliding scale insulin -Diabetic diet DVT prophylaxis: SCDs Discussed Condition With Patient and RN Emma Jones Jan 04, 2018 21:41
[2018-01-04 22:30] LABS: INTERNATIONAL NORMALIZED RATIO 1.5 RATIO; PROTHROMBIN TIME - PATIENT 15.3 SEC (9.8-11.6)
[2018-01-04] MEDS: AMINOCAPROIC ACID 500 MG TAB PO SCH (23:38)
[2018-01-05] VITALS (7 sets, daily range): BP systolic 117–180; BP diastolic 68–103; PULSE 48–74; RESP 16–20; TEMP 97.7–98.4; O2SAT 96–99
[2018-01-05 02:11] LABS: INTERNATIONAL NORMALIZED RATIO 1.6 RATIO; PROTHROMBIN TIME - PATIENT 15.9 SEC (9.8-11.6)
[2018-01-05] MEDS: AMINOCAPROIC ACID 500 MG TAB PO SCH ×5 (03:50→20:07)
[2018-01-05 05:25] LABS: AUTOMATED NEUTROPHIL # 4.2 TH/MM3 (1.8-7.7); BASOPHIL # 0.1 TH/MM3 (0-0.2); BASOPHIL % 0.7 % (0.0-2.0); EOSINOPHIL # 0.2 TH/MM3 (0-0.4); HEMOGLOBIN 16.2 GM/DL (13.0-17.0); LYMPH % 39.9 % (9.0-44.0); LYMPHOCYTE # 3.4 TH/MM3 (1.0-4.8); MEAN CELL VOLUME 83.5 FL (80.0-100.0); MEAN CORPUSCULAR HEMOGLOBIN 28.1 PG (27.0-34.0); MEAN CORPUSCULAR HGB CONC 33.7 % (32.0-36.0); MONO % 7.4 % (0.0-8.0); MONOCYTE # 0.6 TH/MM3 (0-0.9); PLATELET COUNT 198 TH/MM3 (150-450); RED BLOOD COUNT 5.75 MIL/MM3 (4.50-5.90); RED CELL DISTRIBUTION WIDTH 14.1 % (11.6-17.2); WHITE BLOOD COUNT 8.4 TH/MM3 (4.0-11.0)
[2018-01-05 05:44] LABS: BICARBONATE 25.4 MEQ/L (21.0-32.0); CALCIUM 8.5 MG/DL (8.5-10.1); CREATININE 1.12 MG/DL (0.60-1.30)
[2018-01-05] MEDS: INSULIN ASPART SUPPLEMENTAL SCALE SQ SCH ×4 (08:00→21:00)
[2018-01-05] MEDS: QUEtiapine FUMARATE 25 MG TAB PO SCH (08:31)
[2018-01-05] MEDS: metFORMIN HCL 500 MG TAB PO SCH ×2 (08:31→17:53)
[2018-01-05] MEDS: LISINOPRIL 10 MG TAB PO SCH (08:31)
[2018-01-05] MEDS: SODIUM CHLORIDE 0.9% FLUSH 10 ML FLUSH IV FLUSH SCH ×2 (08:32→20:07)
[2018-01-05] MEDS: DEXTROAMPHETAMINE/AMPHETAMINE 30 MG TAB PO SCH (09:58)
[2018-01-05] MEDS ORDERED: POTASSIUM CHLORIDE 10 MEQ CAP PO ONE (14:30)
--- NOTE | 2018-01-05 14:50 | HHI.PR ---
Subjective Remarks Follow up hemarthrosis, right knee pain. Patient states that he feels a little better today. He would like to go home today. No chest pain, dyspnea. Objective Vitals Vital Signs Date Time Temp Pulse Resp B/P (MAP) Pulse Ox O2 Delivery O2 Flow Rate FiO2 01/05/18 11:33 98.4 74 18 139/93 (108) 98 01/05/18 07:28 97.7 50 18 180/103 (128) 98 01/05/18 03:46 98.3 52 16 147/79 (101) 99 01/04/18 23:08 98.5 58 16 131/70 (90) 98 01/04/18 19:42 98.3 55 18 134/81 99 01/04/18 19:27 98.4 53 18 137/95 99 01/04/18 19:15 98.4 50 18 133/84 99 01/04/18 17:57 98.3 51 18 139/91 99 01/04/18 17:42 98.3 51 18 130/79 98 I/O 01/04/18 01/04/18 01/04/18 01/05/18 01/05/18 01/05/18 07:00 15:00 23:00 07:00 15:00 23:00 Intake Total 679 ml Balance 679 ml Intake FFP 679 ml Result Diagram: 01/05/18 0446 01/05/18 0446 Imaging Last Impressions Lower Extremity CT 01/04/18 0000 Signed Impressions: CONCLUSION: 1. Wire shape radiopaque foreign body in the medial soft tissues of the patien t's knee. 2. Small osteochondral defect of the anterior patellar notch. 3. Joint effusion. Objective Remarks General: No acute distress. Heart: Regular rate and rhythm. No murmur. Lungs: Clear to auscultation bilaterally. No wheezes, rales, or rhonchi. Breathing is nonlabored. Abdomen: Soft, nontender, nondistended. Extremities: No left lower extremity edema. Mild right knee swelling and tenderness. Psych: Alert and oriented. Neuro: Normal speech. No focal deficits noted. Procedures None Urinary Catheter: No Vascular Central Line Catheter: No A/P Assessment and Plan 1. Hemarthrosis, right knee: Pain is improving. Appreciate hematology recommendations. Continue pain control. Continue Amicar. 2. Foreign body, right knee: Patient does not recall any prior injury or surgery to the right knee. Follow-up as outpatient with orthopedic surgery. 3. Supratherapeutic INR: Improved with FFP. Follow INR. 4. Hypertension: Continue home medications. 5. Diabetes mellitus: Monitor Accu-Cheks and cover with sliding scale insulin. Diabetic diet. 6. DVT prophylaxis: SCDs. Discharge Planning Plan for discharge home when cleared by hematology. Vickey Carpio MD Jan 05, 2018 14:50
[2018-01-05] MEDS: ACETAMINOPHEN 325 MG TAB PO PRN (16:22)
[2018-01-06] MEDS: AMINOCAPROIC ACID 500 MG TAB PO SCH ×3 (00:58→08:33)
[2018-01-06 03:24] VITALS: BP 107/52; PULSE 57; RESP 17; O2SAT 96
[2018-01-06 04:13] LABS: AUTOMATED NEUTROPHIL # 4.5 TH/MM3 (1.8-7.7); BASOPHIL % 0.5 % (0.0-2.0); EOSINOPHIL # 0.2 TH/MM3 (0-0.4); EOSINOPHIL % 2.3 % (0.0-4.0); HEMATOCRIT 49.4 % (39.0-51.0); HEMOGLOBIN 16.6 GM/DL (13.0-17.0); LYMPH % 41.3 % (9.0-44.0); LYMPHOCYTE # 3.8 TH/MM3 (1.0-4.8); MEAN CELL VOLUME 83.1 FL (80.0-100.0); MEAN CORPUSCULAR HEMOGLOBIN 27.9 PG (27.0-34.0); MEAN CORPUSCULAR HGB CONC 33.6 % (32.0-36.0); MEAN PLATELET VOLUME 9.9 FL (7.0-11.0); MONO % 6.9 % (0.0-8.0); MONOCYTE # 0.6 TH/MM3 (0-0.9); PLATELET COUNT 201 TH/MM3 (150-450); RED BLOOD COUNT 5.94 MIL/MM3 (4.50-5.90); RED CELL DISTRIBUTION WIDTH 13.8 % (11.6-17.2); WHITE BLOOD COUNT 9.2 TH/MM3 (4.0-11.0)
[2018-01-06 04:19] LABS: PROTHROMBIN TIME - PATIENT 20.7 SEC (9.8-11.6)
[2018-01-06 04:40] LABS: BICARBONATE 26.6 MEQ/L (21.0-32.0); CALCIUM 8.7 MG/DL (8.5-10.1); CREATININE 1.15 MG/DL (0.60-1.30)
[2018-01-06 07:31] VITALS: BP 118/81; PULSE 54; RESP 20; TEMP 97.8; O2SAT 97
[2018-01-06] MEDS: INSULIN ASPART SUPPLEMENTAL SCALE SQ SCH (08:00)
[2018-01-06] MEDS: metFORMIN HCL 500 MG TAB PO SCH (08:33)
[2018-01-06] MEDS: SODIUM CHLORIDE 0.9% FLUSH 10 ML FLUSH IV FLUSH SCH (08:34)
[2018-01-06] MEDS: QUEtiapine FUMARATE 25 MG TAB PO SCH (08:34)
[2018-01-06] MEDS: DEXTROAMPHETAMINE/AMPHETAMINE 30 MG TAB PO SCH (08:34)
[2018-01-06] MEDS: LISINOPRIL 10 MG TAB PO SCH (08:35)
[2018-01-06] MEDS ORDERED: [UNRECOGNIZED DRUG - CODE] PO (09:37)
--- NOTE | 2018-01-06 09:41 | HHI.PR ---
Subjective Remarks patient says he is feeling well. Denies any chest pain shortness of breath. Reports right knee pain improved. Would like to go home. Objective Vital Signs Date Time Temp Pulse Resp B/P (MAP) Pulse Ox O2 Delivery O2 Flow Rate FiO2 01/06/18 07:31 97.8 54 20 118/81 (93) 97 01/06/18 03:24 57 17 107/52 (70) 96 01/05/18 23:14 98.1 48 17 117/68 (84) 98 01/05/18 19:45 98.1 49 16 142/69 (93) 98 01/05/18 16:18 98.2 54 20 145/73 (97) 96 01/05/18 11:33 98.4 74 18 139/93 (108) 98 I/O 01/05/18 01/05/18 01/05/18 01/06/18 01/06/18 01/06/18 07:00 15:00 23:00 07:00 15:00 23:00 # Voids 1 Result Diagram: 01/06/18 0345 01/06/18 0345 Objective Remarks GENERAL: Continue up in bed, walking around the [place] without difficulty. SKIN: Warm and dry. HEAD: Normocephalic. EYES: No scleral icterus. No injection or drainage. NECK: Supple, trachea midline. No JVD. CARDIOVASCULAR: Regular rate and rhythm without murmurs, gallops, or rubs. RESPIRATORY: Breath sounds equal bilaterally. No accessory muscle use. GASTROINTESTINAL: Abdomen soft, non-tender, nondistended. MUSCULOSKELETAL: No cyanosis, or edema. Right knee without perceptible effusion. No discoloration. Patient does have small roughly 1 cm well-healed scar of the medial right knee correlating with subcutaneous foreign body on CT. BACK: Nontender without obvious deformity. No CVA tenderness. A/P Assessment and Plan //Hemarthrosis, right knee: Pain is improving. Appreciate hematology recommendations. Continue pain control. Continue Amicar. = Discussed with hematology. Discharged on Amicar. Follow-up with hematology as outpatient // Foreign body, right knee: Patient does not recall any prior injury or surgery to the right knee. = Patient has what appears to be old scar at site of subcutaneous foreign body. This is likely old. Follow-up as outpatient with orthopedic surgery. Patient advised and conveys understanding. //Supratherapeutic INR: Improved with FFP. Follow INR. // Hypertension: Continue home medications. // DVT prophylaxis: SCDs. Discharge Planning Discharge home. Follow-up with hematology and orthopedics as outpatient. Lisandro Hernandez MD Jan 06, 2018 09:41
[2018-01-06] MEDS ORDERED: POTASSIUM CHLORIDE 20 MEQ CONTROLLED RELEASE TAB PO ONE (09:45)
--- NOTE | 2018-01-06 09:46 | HHI.DS ---
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 Pope, hypertension, diabetes, hep C, ADHD presented to the ED with complaints of right knee pain. Patient reports that he has had occasional bleeding in his right knee before that is unprovoked. In the past he has been on Amicar tablets to control the bleeding. He denies any associated symptoms, states his pain is a aching, 5/10 better with pain medicine worse with walking, no radiation. He denies any trauma to that knee recently. Upon arrival to the ER patient was found to have an INR of 5.5 with a prolonged PT and PTT. Denies any shortness of breath, chest pain, dizziness or headaches. CBC/BMP: 01/06/18 0345 01/06/18 0345 Significant Findings Laboratory Tests Test 01/04/18 16:43 01/04/18 21:25 01/05/18 00:08 01/05/18 04:46 Prothrombin Time 57.9 SEC (9.8-11.6) 15.3 SEC (9.8-11.6) 15.9 SEC (9.8-11.6) Activated Partial Thromboplast Time 125.6 SEC (24.3-30.1) 35.2 SEC (24.3-30.1) Potassium Level 3.3 MEQ/L (3.5-5.1) 3.4 MEQ/L (3.5-5.1) Test 01/06/18 03:45 Red Blood Count 5.94 MIL/MM3 (4.50-5.90) Prothrombin Time 20.7 SEC (9.8-11.6) Potassium Level 3.4 MEQ/L (3.5-5.1) Imaging Last Impressions Lower Extremity CT 01/04/18 0000 Signed Impressions: CONCLUSION: 1. Wire shape radiopaque foreign body in the medial soft tissues of the patien t's knee. 2. Small osteochondral defect of the anterior patellar notch. 3. Joint effusion. PE at Discharge General: No acute distress. Heart: Regular rate and rhythm. No murmur. Lungs: Clear to auscultation bilaterally. No wheezes, rales, or rhonchi. Breathing is nonlabored. Abdomen: Soft, nontender, nondistended. Extremities: No left lower extremity edema. Mild right knee swelling and tenderness. Psych: Alert and oriented. Neuro: Normal speech. No focal deficits noted. Hospital Course patient presented with hemarthrosis of the right knee, elevated INR. Hematology was consulted, patient received FFP with improvement in INR. Patient was also started on Amicar which we will continue. Pain improved, and patient requesting discharge home. Patient was incidentally found to have small metallic foreign body, possibly a wire in the superficial subcutaneous tissue of the right medial knee, for which patient will need to follow-up with orthopedics as outpatient. Patient will also need follow-up with hematology as outpatient. For problem based summary from most recent progress note, please see below. //Hemarthrosis, right knee: Pain is improving. Appreciate hematology recommendations. Continue pain control. Continue Amicar. = Discussed with hematology. Discharged on Amicar. Follow-up with hematology as outpatient // Foreign body, right knee: Patient does not recall any prior injury or surgery to the right knee. = Patient has what appears to be old scar at site of subcutaneous foreign body. This is likely old. Follow-up as outpatient with orthopedic surgery. Patient advised and conveys understanding. //Supratherapeutic INR: Improved with FFP. Follow INR. // Hypertension: Continue home medications. // DVT prophylaxis: SCDs. Discharge Planning Discharge home. Follow-up with hematology and orthopedics as outpatient. Pt Condition on Discharge: Good Discharge Disposition: Discharge Home Discharge Time: > 30 minutes Discharge Instructions DIET: Follow Instructions for: Diabetic Diet Activities you can perform: Regular-No Restrictions Follow up Referrals: Oncology/Hematology - 1 Week with Avila Anderson MD Orthopedics - 1 Week with Alexis Morales MD PCP Follow-up - 1 Week New Medications: Aminocaproic Acid (Amicar) 500 Mg Tab 2000 MG PO Q6HR for prevent bleeding for 30 Days, TAB Continued Medications: Amphetamine-Dextroamphetamine (Adderall) 30 Mg Tab 30 MG PO DAILY for Hyperactivity Control, #30 TAB 0 Refills Avoid late evening doses. Space doses at least 4 to 6 hours if more than once/day dosing. Insulin Detemir Inj (Levemir Inj) 1,000 unit/ 10 ML Vial 10 UNITS SQ AC BREAKFAST for Blood Sugar Management, VIAL 0 Refills Do not mix with any other Insulin. Lisinopril (Lisinopril) 10 Mg Tab 10 MG PO DAILY, #60 TAB 6 Refills Metformin (Metformin) 1,000 Mg Tab 1000 MG PO BIDPC for Blood Sugar Management, #120 TAB 6 Refills With meals [place]-3 Fatty Acids ([place]-3 1000 mg) 1 Cap Cap 1000 CAPLET PO DAILY Quetiapine (Seroquel) 50 Mg Tab 50 MG PO DAILY, #60 TAB 2 Refills Discontinued Medications: Milk Thistle (Milk Thistle) 140 Mg Cap 140 MG PO BID Lisandro Hernandez MD Jan 06, 2018 09:46
[2018-01-06] MEDS: ACETAMINOPHEN 325 MG TAB PO PRN (10:42)
== END 2018-01-06 11:07 | disposition home or self-care (01) ==
LOC: NEPD 12:48 → NEDA 18:05 → NEPGCP 20:33
PROVIDERS: ADMIT Internal Medicine; ATTEND Internal Medicine
DX: M25.561 Pain in right knee (principal); M25.461 Effusion, right knee; M22.8X1 Other disorders of patella, right knee; D68.2 Hereditary deficiency of other clotting factors; I10 Essential (primary) hypertension; E78.00 Pure hypercholesterolemia, unspecified; E11.9 Type 2 diabetes mellitus without complications; B18.2 Chronic viral hepatitis C; M12.9 Arthropathy, unspecified; F70 Mild intellectual disabilities; H91.90 Unspecified hearing loss, unspecified ear; E66.9 Obesity, unspecified; Z79.01 Long term (current) use of anticoagulants; Z79.899 Other long term (current) drug therapy; Z79.4 Long term (current) use of insulin
CPT/HCPCS: 36430; 73700; 80048; 82948; 85025; 85610; 85730; 86927; 99285; G0378; J7050; P9017